=== PATIENT | male | born 1930 | race Caucasian/White ===

== ENCOUNTER 2016-09-26 19:17 | Inpatient (IN) | payer MEDICARE, OTHER ==
[2016-09-26] MEDS ORDERED: LORazepam 2 MG/ML MDV IM ONE (20:27)
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
[2016-09-26] MEDS ORDERED: Sodium Chloride 0.9% 10 ML Syringe FLUSH PRN (21:29)
[2016-09-26] MEDS ORDERED: Temazepam 15 MG Cap PO PRN (21:29)
[2016-09-26] MEDS ORDERED: Acetaminophen 325 MG Tab PO PRN (21:29)
[2016-09-26] MEDS ORDERED: Ondansetron 4 MG Tab.DIS PO PRN (21:29)
[2016-09-26] MEDS ORDERED: Sodium Chloride 0.9% 2.5 ML Syringe FLUSH PRN (21:29)
[2016-09-26] MEDS ORDERED: Bisacodyl 10 MG Supp RECTAL PRN (21:33)
[2016-09-26] MEDS ORDERED: Magnesium Hydroxide 400 MG/5 ML Susp 30 ML Cup PO PRN (21:33)
[2016-09-26] MEDS ORDERED: Acetaminophen 500 MG Tab PO PRN (21:33)
[2016-09-26] MEDS ORDERED: Atropine 1% Ophth Soln 5 ML Bottle SL PRN (21:33)
[2016-09-26] MEDS: LORazepam 2 MG/ML MDV IVPUSH PRN (22:30)
[2016-09-26] MEDS: Polyethylene Glycol 3350 Powder 17 GM Packet PO SCH (23:50)
[2016-09-26] MEDS: risperiDONE 0.5 MG Tab PO SCH (23:51)
[2016-09-26] MEDS: traZODone 50 MG Tab PO SCH (23:51)
[2016-09-26] MEDS: Haloperidol Lactate 5 MG/ML SDV IM PRN (23:57)
[2016-09-27] MEDS ORDERED: Non-Formulary Medication 1 Each (Propylene Glycol/Peg 400 [Systane 0.3-0.4% Eye Drops] 1 D EYELF SCH
[2016-09-27] MEDS: Carboxymethylcellulose Sodium 0.5% Ophth Soln 0.4 ML UD Box of 30 EYELF SCH ×4 (00:02→17:20)
[2016-09-27] MEDS: risperiDONE 0.5 MG Tab PO SCH (05:54)
[2016-09-27] MEDS: traZODone 50 MG Tab PO SCH ×2 (05:54→17:18)
[2016-09-27 06:27] LABS: CHLORIDE,CL 110 mmol/L (98-110); SODIUM,NA 143 mmol/L (136-146)
[2016-09-27] MEDS: Levothyroxine 100 MCG Tab PO SCH (07:15)
[2016-09-27] MEDS: LORazepam 2 MG/ML MDV IVPUSH PRN (08:21)
[2016-09-27] MEDS ORDERED: LANOLIN EYEBOTH SCH (09:00)
[2016-09-27] MEDS ORDERED: PETROLATUM EYEBOTH SCH (09:00)
[2016-09-27] MEDS ORDERED: MIN OIL EYEBOTH SCH (09:00)
[2016-09-27] MEDS ORDERED: TELMISARTAN 20 MG PO SCH (09:00)
[2016-09-27] MEDS: Dorzolamide 2% Ophth Soln 10 ML Bottle EYEBOTH SCH ×2 (11:22→21:41)
[2016-09-27] MEDS: Mineral Oil/Petrolatum Ophth Oint 3.5 GM Tube EYEBOTH SCH ×2 (11:45→21:40)
[2016-09-27] MEDS: Haloperidol Lactate 5 MG/ML SDV IM PRN (12:56)
[2016-09-27] MEDS: Belladonna Alkaloids/Opium 16.2-30 MG Supp RECTAL PRN ×3 (13:32→23:39)
--- NOTE | 2016-09-27 13:38 | PCM.PN ---
- General Info Date of Service: 09/27/16 - Review of Systems Systems Review Comment:: he appears to be sleeping after receiving haldol. He has not eaten yet this am. he was agitated earlier. - Patient Data Vitals - most recent: Last Vital Signs Temp 97.6 F 09/27/16 07:24 Pulse 89 09/27/16 07:24 Resp 20 09/27/16 07:24 BP 116/76 09/27/16 07:24 Pulse Ox 96 09/27/16 07:24 Weight - most recent: 81 kg I&O - last 24 hours: Intake & Output 09/26/16 09/27/16 09/27/16 22:59 06:59 14:59 Intake Total 0 Output Total 1150 Balance -1150 Lab Results last 24 hrs: Laboratory Results - last 24 hr 09/27/16 09/27/16 Range/Units 05:40 05:40 WBC 6.73 (4.0-11.0) K/uL RBC 2.71 L (4.50-5.90) M/uL Hgb 8.6 L (13.0-17.0) g/dL Hct 25.8 L (38.0-50.0) % MCV 95.2 (80.0-98.0) fL MCH 31.7 (27.0-32.0) pg MCHC 33.3 (31.0-37.0) g/dL RDW Std Deviation 45.3 (28.0-62.0) fl RDW Coeff of Rowdy 13 (11.0-15.0) % Plt Count 176 (150-400) K/uL MPV 10.10 (7.40-12.00) fL Neut % (Auto) 83.7 H (48.0-80.0) % Lymph % (Auto) 7.1 L (16.0-40.0) % [place] % (Auto) 6.5 (0.0-15.0) % Eos % (Auto) 2.4 (0.0-7.0) % Baso % (Auto) 0.3 (0.0-1.5) % Neut # 5.6 (1.4-5.7) K/uL Lymph # 0.5 L (0.6-2.4) K/uL [place] # 0.4 (0.0-0.8) K/uL Eos # 0.2 (0.0-0.7) K/uL Baso # 0.0 (0.0-0.1) K/uL Nucleated RBC % 0.0 /100WBC Nucleated RBCs # 0 K/uL Sodium 143 (136-146) mmol/L Potassium 3.9 (3.5-5.1) mmol/L Chloride 110 (98-110) mmol/L Carbon Dioxide 24 (21-31) mmol/L BUN 22 (6.0-23.0) mg/dL Creatinine 1.0 (0.6-1.5) mg/dL Est Cr Clr Drug Dosing 49.45 mL/min Estimated GFR (MDRD) > 60.0 ml/min Glucose 100 (60-110) mg/dL Calcium 8.4 L (8.8-10.8) mg/dL Magnesium 1.8 (1.5-2.3) mEq/L Med Orders - Current: Current Medications Acetaminophen (Tylenol) 650 mg PO Q4H PRN PRN Reason: Pain (Mild 1-3)/fever Artificial Tears (Refresh Plus 0.5%) 0 each EYELF QID [facility] Last Admin: 09/27/16 11:54 Dose: 1 drop Atorvastatin Calcium (Lipitor) 10 mg PO BEDTIME GAIL Atropine Sulfate (Isopto Atropine 1% Ophth Soln) 0 ml SL Q1H PRN PRN Reason: SECRETIONS Belladonna Alkaloids/Opium (B & O Supprettes No. 15a) 1 supp RECTAL Q4H PRN PRN Reason: Spasms Last Admin: 09/27/16 13:32 Dose: 1 supp Bisacodyl (Dulcolax) 10 mg RECTAL Q24H PRN PRN Reason: Constipation Divalproex Sodium (Depakote Sprinkle) 250 mg PO BID GAIL Docusate Sodium (Colace) 100 mg PO BID GAIL Donepezil HCl (Aricept) 5 mg PO BEDTIME GAIL Dorzolamide HCl (Trusopt 2% Ophth Soln) 0 ml EYEBOTH BID [facility] Last Admin: 09/27/16 11:22 Dose: 1 drop Haloperidol Lactate (Haldol) 3 mg IM Q8H PRN PRN Reason: Agitation Last Admin: 09/27/16 12:56 Dose: 3 mg Levetiracetam (Keppra) 500 mg PO BID [facility] Levothyroxine Sodium (Synthroid) 100 mcg PO ACBREAKFAST [facility] Last Admin: 09/27/16 07:15 Dose: Not Given Lorazepam (Ativan) 1 mg IVPUSH Q6H PRN PRN Reason: Anxiety Last Admin: 09/27/16 08:21 Dose: 1 mg Magnesium Hydroxide (Milk Of Magnesia) 30 ml PO DAILY PRN PRN Reason: Constipation Melatonin (Melatonin) 9 mg PO BEDTIME [facility] Mineral Oil/White Petrolatum (Lacri-Lube S.O.P Oint) 0 gm EYEBOTH BID [facility] Last Admin: 09/27/16 11:45 Dose: 1 applic Ondansetron HCl (Zofran Odt) 4 mg PO Q4H PRN PRN Reason: nausea, able to take PO Polyethylene Glycol (Miralax) 17 gm PO Q48H [facility] Last Admin: 09/26/16 23:50 Dose: Not Given Risperidone (Risperidal) 1 mg PO TID [facility] Sodium Chloride (Saline Flush) 10 ml FLUSH ASDIRECTED PRN PRN Reason: Keep Vein Open Sodium Chloride (Saline Flush) 2.5 ml FLUSH ASDIRECTED PRN PRN Reason: Keep Vein Open Telmisartan (Micardis) 20 mg PO BID [facility] Temazepam (Restoril) 15 mg PO BEDTIME PRN PRN Reason: Sleep Trazodone HCl (Trazodone) 50 mg PO TID [facility] Last Admin: 09/27/16 05:54 Dose: Not Given Discontinued Medications Acetaminophen (Tylenol Extra Strength) 1,000 mg PO Q6H PRN PRN Reason: Pain/Fever Lorazepam (Ativan) 1 mg IM ONETIME ONE Stop: 09/26/16 20:28 Last Admin: 09/26/16 20:32 Dose: 1 mg Risperidone (Risperidal) 1 mg PO TID [facility] Last Admin: 09/27/16 05:54 Dose: Not Given - Exam Lungs: Normal respiratory effort Abdomen: no tenderness Physical Findings Comments:: continuous bladder irrigation currently. - Problem List & Annotations (1) Hematuria SNOMED Code(s): 46855996 Code(s): R31.9 - HEMATURIA, UNSPECIFIED Status: Acute Current Visit: Yes (2) Alzheimer's dementia SNOMED Code(s): 76873904 Code(s): G30.9 - ALZHEIMER'S DISEASE, UNSPECIFIED Status: Acute Current Visit: No (3) Fall SNOMED Code(s): 5885495, 452520572 Code(s): W19.XXXA - UNSPECIFIED FALL, INITIAL ENCOUNTER Status: Acute Current Visit: No - Problem List Review Problem List Initiated/Reviewed/Updated: Yes - My Orders Last 24 Hours: My Active Orders 09/26/16 22:17 LORazepam [Ativan] 1 mg IVPUSH Q6H PRN 09/26/16 22:18 Haloperidol Lactate [Haldol] 3 mg IM Q8H PRN 09/27/16 00:00 Carboxymethylcellulose Sodium [Refresh Plus 0.5%] 0 each EYELF QID 09/27/16 08:17 risperiDONE [RisperiDAL] 1 mg PO TID 09/27/16 09:00 Mineral Oil/Petrolatum Oint [Lacri-Lube S.O.P Oint] 0 gm EYEBOTH BID Telmisartan [Micardis] 20 mg PO BID 09/28/16 05:11 BASIC METABOLIC PANEL,BMP [CHEM] AM CBC WITH AUTO DIFF [HEME] AM MAGNESIUM [CHEM] AM 09/29/16 05:11 BASIC METABOLIC PANEL,BMP [CHEM] AM CBC WITH AUTO DIFF [HEME] AM MAGNESIUM [CHEM] AM 09/30/16 05:11 BASIC METABOLIC PANEL,BMP [CHEM] AM CBC WITH AUTO DIFF [HEME] AM MAGNESIUM [CHEM] AM - Plan Plan:: will admit to observation see orders. 09/27/2016 I discussed the case with Dr Hair. We will await stabilization and then contact family. He may need to be on hospice/ comfort measures. MD Deborah
--- NOTE | 2016-09-27 14:26 | PCM.SN ---
- Free Text/Narrative Note: he is at high risk for aspiration. change diet to pureed with nectar liquids; aspiration precautions. Anil Ortega MD
[2016-09-27] MEDS: risperiDONE 1 MG Tab PO SCH ×2 (17:17→17:18)
[2016-09-27] MEDS: Docusate Sodium 100 MG Cap PO SCH (17:18)
[2016-09-27] MEDS: levETIRAcetam 500 MG Tab PO SCH (17:18)
[2016-09-27] MEDS: Divalproex Sodium Delayed-Release 125 MG Cap.Sprink PO SCH (17:18)
[2016-09-27] MEDS: Sodium Chloride 0.9% 1,000 ML IV SCH (19:28)
[2016-09-27] MEDS ORDERED: Sodium Chloride 0.9% 1,000 ML IV SCH (19:30)
[2016-09-28] MEDS: Carboxymethylcellulose Sodium 0.5% Ophth Soln 0.4 ML UD Box of 30 EYELF SCH ×4 (00:39→18:52)
[2016-09-28] MEDS ORDERED: Sodium Chloride 0.9% 1,000 ML IV ONE (01:05)
[2016-09-28] MEDS: Melatonin 3 MG Tab PO SCH ×2 (01:38→21:22)
[2016-09-28] MEDS: levETIRAcetam 500 MG Tab PO SCH ×4 (01:38→21:19)
[2016-09-28] MEDS: atorvaSTATin 10 MG Tab PO SCH ×2 (01:38→21:27)
[2016-09-28] MEDS: Docusate Sodium 100 MG Cap PO SCH ×4 (01:38→21:27)
[2016-09-28] MEDS: Donepezil 5 MG Tab PO SCH ×2 (01:38→21:27)
[2016-09-28] MEDS: Divalproex Sodium Delayed-Release 125 MG Cap.Sprink PO SCH ×4 (01:38→21:22)
[2016-09-28] MEDS: risperiDONE 1 MG Tab PO SCH ×5 (01:39→21:27)
[2016-09-28] MEDS: traZODone 50 MG Tab PO SCH ×5 (01:39→21:19)
[2016-09-28] MEDS: Sodium Chloride 0.9% 1,000 ML IV SCH ×2 (07:00→17:07)
[2016-09-28] MEDS: Levothyroxine 100 MCG Tab PO SCH ×2 (07:04→07:40)
[2016-09-28 07:12] LABS: CHLORIDE,CL 112 mmol/L (98-110); SODIUM,NA 144 mmol/L (136-146)
[2016-09-28] MEDS: LORazepam 2 MG/ML MDV IVPUSH PRN ×2 (07:17→17:05)
[2016-09-28] MEDS: Dorzolamide 2% Ophth Soln 10 ML Bottle EYEBOTH SCH ×2 (08:25→21:14)
[2016-09-28] MEDS: Mineral Oil/Petrolatum Ophth Oint 3.5 GM Tube EYEBOTH SCH ×2 (09:00→21:36)
--- NOTE | 2016-09-28 12:31 | PCM.PN ---
- General Info Date of Service: 09/28/16 - Review of Systems Psychiatric: Reports: confusion (he had a hypotensive episode early this am with systolic blood pressure of 60 mm Hg. Hypotension responded to intravenous crystalloid infusion. ) - Patient Data Vitals - most recent: Last Vital Signs Temp 97.3 F 09/28/16 12:00 Pulse 94 09/28/16 12:00 Resp 18 09/28/16 12:00 BP 110/63 09/28/16 12:00 Pulse Ox 96 09/28/16 08:00 Weight - most recent: 81 kg I&O - last 24 hours: Intake & Output 09/27/16 09/28/16 09/28/16 22:59 06:59 14:59 Intake Total 77438 1702 Output Total 31554 240 Balance -114 1462 Lab Results last 24 hrs: Laboratory Results - last 24 hr 09/28/16 09/28/16 Range/Units 06:00 06:00 WBC 5.58 (4.0-11.0) K/uL RBC 2.61 L (4.50-5.90) M/uL Hgb 8.5 L (13.0-17.0) g/dL Hct 26.4 L (38.0-50.0) % MCV 101.1 H (80.0-98.0) fL MCH 32.6 H (27.0-32.0) pg MCHC 32.2 (31.0-37.0) g/dL RDW Std Deviation 45.4 (28.0-62.0) fl RDW Coeff of Rowdy 13 (11.0-15.0) % Plt Count 198 (150-400) K/uL MPV 10.80 (7.40-12.00) fL Neut % (Auto) 67.4 (48.0-80.0) % Lymph % (Auto) 18.1 (16.0-40.0) % [place] % (Auto) 9.3 (0.0-15.0) % Eos % (Auto) 4.7 (0.0-7.0) % Baso % (Auto) 0.5 (0.0-1.5) % Neut # 3.8 (1.4-5.7) K/uL Lymph # 1.0 (0.6-2.4) K/uL [place] # 0.5 (0.0-0.8) K/uL Eos # 0.3 (0.0-0.7) K/uL Baso # 0.0 (0.0-0.1) K/uL Sodium 144 (136-146) mmol/L Potassium 4.0 (3.5-5.1) mmol/L Chloride 112 H (98-110) mmol/L Carbon Dioxide 23 (21-31) mmol/L BUN 21 (6.0-23.0) mg/dL Creatinine 0.9 (0.6-1.5) mg/dL Est Cr Clr Drug Dosing 54.95 mL/min Estimated GFR (MDRD) > 60.0 ml/min Glucose 75 (60-110) mg/dL Calcium 8.2 L (8.8-10.8) mg/dL Magnesium 1.5 (1.5-2.3) mEq/L Med Orders - Current: Current Medications Acetaminophen (Tylenol) 650 mg PO Q4H PRN PRN Reason: Pain (Mild 1-3)/fever Artificial Tears (Refresh Plus 0.5%) 0 each EYELF QID [facility] Last Admin: 09/28/16 11:47 Dose: 1 drop Atorvastatin Calcium (Lipitor) 10 mg PO BEDTIME [facility] Last Admin: 09/28/16 01:38 Dose: Not Given Atropine Sulfate (Isopto Atropine 1% Ophth Soln) 0 ml SL Q1H PRN PRN Reason: SECRETIONS Belladonna Alkaloids/Opium (B & O Supprettes No. 15a) 1 supp RECTAL Q4H PRN PRN Reason: Spasms Last Admin: 09/27/16 23:39 Dose: 1 supp Bisacodyl (Dulcolax) 10 mg RECTAL Q24H PRN PRN Reason: Constipation Divalproex Sodium (Depakote Sprinkle) 250 mg PO BID [facility] Last Admin: 09/28/16 08:21 Dose: 250 mg Docusate Sodium (Colace) 100 mg PO BID [facility] Last Admin: 09/28/16 08:21 Dose: 100 mg Donepezil HCl (Aricept) 5 mg PO BEDTIME [facility] Last Admin: 09/28/16 01:38 Dose: Not Given Dorzolamide HCl (Trusopt 2% Ophth Soln) 0 ml EYEBOTH BID [facility] Last Admin: 09/28/16 08:25 Dose: 1 drop Haloperidol Lactate (Haldol) 3 mg IM Q8H PRN PRN Reason: Agitation Last Admin: 09/27/16 12:56 Dose: 3 mg Sodium Chloride (Normal Saline) 1,000 mls @ 100 mls/hr IV ASDIRECTED [facility] Last Admin: 09/28/16 07:00 Dose: 100 mls/hr Meropenem 1 gm/ Sodium (Chloride) 100 mls @ 200 mls/hr IV Q8H [facility] Levetiracetam (Keppra) 500 mg PO BID [facility] Last Admin: 09/28/16 08:20 Dose: 500 mg Levothyroxine Sodium (Synthroid) 100 mcg PO ACBREAKFAST [facility] Last Admin: 09/28/16 07:40 Dose: Not Given Lorazepam (Ativan) 1 mg IVPUSH Q6H PRN PRN Reason: Anxiety Last Admin: 09/28/16 07:17 Dose: 1 mg Magnesium Hydroxide (Milk Of Magnesia) 30 ml PO DAILY PRN PRN Reason: Constipation Melatonin (Melatonin) 9 mg PO BEDTIME [facility] Last Admin: 09/28/16 01:38 Dose: Not Given Mineral Oil/White Petrolatum (Lacri-Lube S.O.P Oint) 0 gm EYEBOTH BID [facility] Last Admin: 09/28/16 09:00 Dose: 1 applic Ondansetron HCl (Zofran Odt) 4 mg PO Q4H PRN PRN Reason: nausea, able to take PO Polyethylene Glycol (Miralax) 17 gm PO Q48H [facility] Last Admin: 09/26/16 23:50 Dose: Not Given Risperidone (Risperidal) 1 mg PO TID [facility] Last Admin: 09/28/16 07:05 Dose: 1 mg Sodium Chloride (Saline Flush) 10 ml FLUSH ASDIRECTED PRN PRN Reason: Keep Vein Open Sodium Chloride (Saline Flush) 2.5 ml FLUSH ASDIRECTED PRN PRN Reason: Keep Vein Open Temazepam (Restoril) 15 mg PO BEDTIME PRN PRN Reason: Sleep Trazodone HCl (Trazodone) 50 mg PO TID [facility] Last Admin: 09/28/16 05:18 Dose: Not Given Discontinued Medications Acetaminophen (Tylenol Extra Strength) 1,000 mg PO Q6H PRN PRN Reason: Pain/Fever Sodium Chloride (Normal Saline) 1,000 mls @ 100 mls/hr IV ASDIRECTED [facility] Sodium Chloride (Normal Saline) 1,000 mls @ 999 mls/hr IV .Bolus ONE Stop: 09/28/16 02:05 Last Admin: 09/28/16 01:12 Dose: 999 mls/hr Lorazepam (Ativan) 1 mg IM ONETIME ONE Stop: 09/26/16 20:28 Last Admin: 09/26/16 20:32 Dose: 1 mg Risperidone (Risperidal) 1 mg PO TID [facility] Last Admin: 09/27/16 05:54 Dose: Not Given Telmisartan (Micardis) 20 mg PO BID [facility] Last Admin: 09/28/16 11:59 Dose: Not Given - Exam Physical Findings Comments:: patient in position abdomen non tender lungs CTA - Problem List & Annotations (1) Hematuria SNOMED Code(s): 08483723 Code(s): R31.9 - HEMATURIA, UNSPECIFIED Status: Acute Current Visit: Yes (2) Alzheimer's dementia SNOMED Code(s): 98319183 Code(s): G30.9 - ALZHEIMER'S DISEASE, UNSPECIFIED Status: Acute Current Visit: No (3) Fall SNOMED Code(s): 5308026, 529879217 Code(s): W19.XXXA - UNSPECIFIED FALL, INITIAL ENCOUNTER Status: Acute Current Visit: No (4) UTI (urinary tract infection) SNOMED Code(s): 30224057 Code(s): N39.0 - URINARY TRACT INFECTION, SITE NOT SPECIFIED Status: Acute Current Visit: No Qualifiers: Urinary tract infection type: site unspecified Hematuria presence: without hematuria Qualified Code(s): N39.0 - Urinary tract infection, site not specified - Problem List Review Problem List Initiated/Reviewed/Updated: Yes - My Orders Last 24 Hours: My Active Orders 09/27/16 14:25 Aspiration Precautions [OM.PC] Routine 09/27/16 19:00 Sodium Chloride 0.9% [Normal Saline] 1,000 ml IV ASDIRECTED 09/27/16 Dinner Pureed Diet [DIET] 09/28/16 12:30 Meropenem [Merrem] 1 gm Sodium Chloride 0.9% [Normal Saline] 100 ml IV Q8H 09/29/16 05:11 BASIC METABOLIC PANEL,BMP [CHEM] AM CBC WITH AUTO DIFF [HEME] AM MAGNESIUM [CHEM] AM 09/30/16 05:11 BASIC METABOLIC PANEL,BMP [CHEM] AM CBC WITH AUTO DIFF [HEME] AM MAGNESIUM [CHEM] AM - Plan Plan:: will admit to observation see orders. 09/27/2016 I discussed the case with Dr Hair. We will await stabilization and then contact family. He may need to be on hospice/ comfort measures. 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
[2016-09-28] MEDS: Meropenem 1 GM in Sodium Chloride 0.9% 100 ML IV SCH ×2 (13:24→22:05)
[2016-09-28] MEDS: Haloperidol Lactate 5 MG/ML SDV IM PRN (18:42)
[2016-09-28] MEDS: Belladonna Alkaloids/Opium 16.2-30 MG Supp RECTAL PRN (18:46)
[2016-09-28] MEDS: Polyethylene Glycol 3350 Powder 17 GM Packet PO SCH (23:30)
[2016-09-29] MEDS: Carboxymethylcellulose Sodium 0.5% Ophth Soln 0.4 ML UD Box of 30 EYELF SCH ×4 (00:24→18:02)
[2016-09-29] MEDS: Sodium Chloride 0.9% 1,000 ML IV SCH ×2 (03:32→15:36)
[2016-09-29] MEDS: Meropenem 1 GM in Sodium Chloride 0.9% 100 ML IV SCH ×3 (05:19→21:22)
[2016-09-29] MEDS: traZODone 50 MG Tab PO SCH ×3 (06:17→21:25)
[2016-09-29] MEDS: Levothyroxine 100 MCG Tab PO SCH ×2 (06:17→06:57)
[2016-09-29] MEDS: risperiDONE 1 MG Tab PO SCH ×3 (06:19→21:25)
[2016-09-29 06:34] LABS: CHLORIDE,CL 114 mmol/L (98-110); SODIUM,NA 146 mmol/L (136-146)
[2016-09-29] MEDS: Docusate Sodium 100 MG Cap PO SCH ×2 (08:13→21:31)
[2016-09-29] MEDS: levETIRAcetam 500 MG Tab PO SCH ×2 (08:13→21:25)
[2016-09-29] MEDS: Divalproex Sodium Delayed-Release 125 MG Cap.Sprink PO SCH ×2 (08:13→21:24)
[2016-09-29] MEDS: Mineral Oil/Petrolatum Ophth Oint 3.5 GM Tube EYEBOTH SCH ×2 (08:17→21:52)
[2016-09-29] MEDS: Dorzolamide 2% Ophth Soln 10 ML Bottle EYEBOTH SCH ×2 (08:17→21:32)
[2016-09-29] MEDS ORDERED: Magnesium Sulfate/Water 2 GM in Premix Bag 1 BAG IV ONE (08:36)
--- NOTE | 2016-09-29 10:56 | PCM.PN ---
- General Info Date of Service: 09/29/16 Functional Status: Reports: tolerating diet, urinating - Review of Systems General: Reports: no symptoms HEENT: Reports: no symptoms Pulmonary: Reports: no symptoms Cardiovascular: Reports: no symptoms Gastrointestinal: Reports: No symptoms Genitourinary: Reports: no symptoms Musculoskeletal: Reports: no symptoms Skin: Reports: no symptoms Neurological: Reports: no symptoms Psychiatric: Reports: no symptoms - Patient Data Vitals - most recent: Last Vital Signs Temp 97.2 F 09/29/16 07:25 Pulse 99 09/29/16 07:25 Resp 20 09/29/16 07:25 BP 154/86 H 09/29/16 07:25 Pulse Ox 97 09/29/16 07:25 Weight - most recent: 81 kg I&O - last 24 hours: Intake & Output 09/28/16 09/29/16 09/29/16 22:59 06:59 14:59 Intake Total 1686 1276 Output Total 1720 Balance 1686 -444 Lab Results last 24 hrs: Laboratory Results - last 24 hr 09/29/16 09/29/16 Range/Units 05:20 05:20 WBC 6.52 (4.0-11.0) K/uL RBC 2.53 L (4.50-5.90) M/uL Hgb 8.2 L (13.0-17.0) g/dL Hct 25.3 L (38.0-50.0) % MCV 100.0 H (80.0-98.0) fL MCH 32.4 H (27.0-32.0) pg MCHC 32.4 (31.0-37.0) g/dL RDW Std Deviation 44.9 (28.0-62.0) fl RDW Coeff of Rowdy 13 (11.0-15.0) % Plt Count 226 (150-400) K/uL MPV 10.20 (7.40-12.00) fL Neut % (Auto) 58.6 (48.0-80.0) % Lymph % (Auto) 25.5 (16.0-40.0) % [place] % (Auto) 10.0 (0.0-15.0) % Eos % (Auto) 5.4 (0.0-7.0) % Baso % (Auto) 0.5 (0.0-1.5) % Neut # 3.8 (1.4-5.7) K/uL Lymph # 1.7 (0.6-2.4) K/uL [place] # 0.7 (0.0-0.8) K/uL Eos # 0.4 (0.0-0.7) K/uL Baso # 0.0 (0.0-0.1) K/uL Sodium 146 (136-146) mmol/L Potassium 4.0 (3.5-5.1) mmol/L Chloride 114 H (98-110) mmol/L Carbon Dioxide 24 (21-31) mmol/L BUN 14 (6.0-23.0) mg/dL Creatinine 0.8 (0.6-1.5) mg/dL Est Cr Clr Drug Dosing 61.82 mL/min Estimated GFR (MDRD) > 60.0 ml/min Glucose 94 (60-110) mg/dL Calcium 8.4 L (8.8-10.8) mg/dL Magnesium 1.3 L (1.5-2.3) mEq/L Med Orders - Current: Current Medications Acetaminophen (Tylenol) 650 mg PO Q4H PRN PRN Reason: Pain (Mild 1-3)/fever Artificial Tears (Refresh Plus 0.5%) 0 each EYELF QID [facility] Last Admin: 09/29/16 06:17 Dose: 1 drop Atorvastatin Calcium (Lipitor) 10 mg PO BEDTIME [facility] Last Admin: 09/28/16 21:27 Dose: 10 mg Atropine Sulfate (Isopto Atropine 1% Oph Soln) 0 ml SL Q1H PRN PRN Reason: SECRETIONS Belladonna Alkaloids/Opium (B & O Supprettes No. 15a) 1 supp RECTAL Q4H PRN PRN Reason: Spasms Last Admin: 09/28/16 18:46 Dose: 1 supp Bisacodyl (Dulcolax) 10 mg RECTAL Q24H PRN PRN Reason: Constipation Divalproex Sodium (Depakote Sprinkle) 250 mg PO BID [facility] Last Admin: 09/29/16 08:13 Dose: 250 mg Docusate Sodium (Colace) 100 mg PO BID [facility] Last Admin: 09/29/16 08:13 Dose: 100 mg Donepezil HCl (Aricept) 5 mg PO BEDTIME [facility] Last Admin: 09/28/16 21:27 Dose: 5 mg Dorzolamide HCl (Trusopt 2% Ophth Soln) 0 ml EYEBOTH BID [facility] Last Admin: 09/29/16 08:17 Dose: 1 drop Haloperidol Lactate (Haldol) 3 mg IM Q8H PRN PRN Reason: Agitation Last Admin: 09/28/16 18:42 Dose: 3 mg Sodium Chloride (Normal Saline) 1,000 mls @ 100 mls/hr IV ASDIRECTED [facility] Last Admin: 09/29/16 03:32 Dose: 100 mls/hr Meropenem 1 gm/ Sodium (Chloride) 100 mls @ 200 mls/hr IV Q8H [facility] Last Admin: 09/29/16 05:19 Dose: 200 mls/hr Levetiracetam (Keppra) 500 mg PO BID [facility] Last Admin: 09/29/16 08:13 Dose: 500 mg Levothyroxine Sodium (Synthroid) 100 mcg PO ACBREAKFAST [facility] Last Admin: 09/29/16 06:57 Dose: Not Given Lorazepam (Ativan) 1 mg IVPUSH Q6H PRN PRN Reason: Anxiety Last Admin: 09/28/16 17:05 Dose: 1 mg Magnesium Hydroxide (Milk Of Magnesia) 30 ml PO DAILY PRN PRN Reason: Constipation Melatonin (Melatonin) 9 mg PO BEDTIME [facility] Last Admin: 09/28/16 21:22 Dose: 9 mg Mineral Oil/White Petrolatum (Lacri-Lube S.O.P Oint) 0 gm EYEBOTH BID [facility] Last Admin: 09/29/16 08:17 Dose: 1 applic Ondansetron HCl (Zofran Odt) 4 mg PO Q4H PRN PRN Reason: nausea, able to take PO Polyethylene Glycol (Miralax) 17 gm PO Q48H [facility] Last Admin: 09/28/16 23:30 Dose: Not Given Risperidone (Risperidal) 1 mg PO TID [facility] Last Admin: 09/29/16 06:19 Dose: 1 mg Sodium Chloride (Saline Flush) 10 ml FLUSH ASDIRECTED PRN PRN Reason: Keep Vein Open Sodium Chloride (Saline Flush) 2.5 ml FLUSH ASDIRECTED PRN PRN Reason: Keep Vein Open Temazepam (Restoril) 15 mg PO BEDTIME PRN PRN Reason: Sleep Trazodone HCl (Trazodone) 50 mg PO TID [facility] Last Admin: 09/29/16 06:17 Dose: 50 mg Discontinued Medications Acetaminophen (Tylenol Extra Strength) 1,000 mg PO Q6H PRN PRN Reason: Pain/Fever Sodium Chloride (Normal Saline) 1,000 mls @ 100 mls/hr IV ASDIRECTED [facility] Sodium Chloride (Normal Saline) 1,000 mls @ 999 mls/hr IV .Bolus ONE Stop: 09/28/16 02:05 Last Admin: 09/28/16 01:12 Dose: 999 mls/hr Magnesium Sulfate 2 gm/ Premix 50 mls @ 25 mls/hr IV ONETIME ONE Stop: 09/29/16 10:35 Last Admin: 09/29/16 08:54 Dose: 25 mls/hr Lorazepam (Ativan) 1 mg IM ONETIME ONE Stop: 09/26/16 20:28 Last Admin: 09/26/16 20:32 Dose: 1 mg Risperidone (Risperidal) 1 mg PO TID [facility] Last Admin: 09/27/16 05:54 Dose: Not Given Telmisartan (Micardis) 20 mg PO BID [facility] Last Admin: 09/28/16 11:59 Dose: Not Given - Exam General: alert, oriented HEENT: Pupils equal, EOMI Neck: supple Lungs: Clear to auscultation Cardiovascular: regular rate, regular rhythm Abdomen: bowel sounds present, soft Extremities: no edema Skin: warm, dry Neurological: no new focal deficit Psy/Mental Status: alert, normal affect - Problem List Review Problem List Initiated/Reviewed/Updated: Yes - Plan Plan:: 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 will attempt to discuss with family going to possible comfort measures
--- NOTE | 2016-09-29 11:30 | PCM.SN ---
- Free Text/Narrative Note: I spoke with his daughter Fior Erickson ) I advised regarding multidrug resistent e coli. . He is on meropenum. CBI now with clear urine out plan is for meropenum until Thursday with discharge to [place] then if no active urinary tract bleeding Fior stated that she will discuss further wishes with other family members. Anil Ortega MD
[2016-09-29] MEDS: LORazepam 2 MG/ML MDV IVPUSH PRN (14:26)
[2016-09-29] MEDS: atorvaSTATin 10 MG Tab PO SCH (21:24)
[2016-09-29] MEDS: Donepezil 5 MG Tab PO SCH (21:24)
[2016-09-29] MEDS: Melatonin 3 MG Tab PO SCH (21:25)
[2016-09-30] MEDS: LORazepam 2 MG/ML MDV IVPUSH PRN (00:23)
[2016-09-30] MEDS: Carboxymethylcellulose Sodium 0.5% Ophth Soln 0.4 ML UD Box of 30 EYELF SCH ×4 (00:24→18:06)
[2016-09-30] MEDS: Haloperidol Lactate 5 MG/ML SDV IM PRN (02:10)
[2016-09-30] MEDS: Sodium Chloride 0.9% 1,000 ML IV SCH ×2 (02:19→15:25)
[2016-09-30] MEDS: Meropenem 1 GM in Sodium Chloride 0.9% 100 ML IV SCH ×3 (05:07→21:47)
[2016-09-30 06:06] LABS: CHLORIDE,CL 114 mmol/L (98-110); SODIUM,NA 144 mmol/L (136-146)
[2016-09-30] MEDS: Levothyroxine 100 MCG Tab PO SCH (09:15)
[2016-09-30] MEDS: risperiDONE 1 MG Tab PO SCH ×3 (09:15→21:46)
[2016-09-30] MEDS: traZODone 50 MG Tab PO SCH ×3 (09:16→21:46)
[2016-09-30] MEDS: levETIRAcetam 500 MG Tab PO SCH ×2 (09:17→21:47)
[2016-09-30] MEDS: Docusate Sodium 100 MG Cap PO SCH ×2 (09:17→21:46)
[2016-09-30] MEDS: Divalproex Sodium Delayed-Release 125 MG Cap.Sprink PO SCH ×2 (09:17→21:46)
[2016-09-30] MEDS: Mineral Oil/Petrolatum Ophth Oint 3.5 GM Tube EYEBOTH SCH ×2 (09:18→21:49)
[2016-09-30] MEDS: Dorzolamide 2% Ophth Soln 10 ML Bottle EYEBOTH SCH ×2 (09:18→21:49)
[2016-09-30] MEDS ORDERED: Magnesium Sulfate/Water 2 GM in Premix Bag 1 BAG IV ONE (09:37)
--- NOTE | 2016-09-30 10:00 | PCM.PN ---
<Sharmaine Kramer - Last Filed: 09/30/16 10:30> - General Info Date of Service: 09/30/16 Subjective Update: pulled out his CBI. - Review of Systems General: Reports: no symptoms HEENT: Reports: no symptoms Pulmonary: Reports: no symptoms Cardiovascular: Reports: no symptoms Gastrointestinal: Reports: No symptoms Genitourinary: Reports: no symptoms Musculoskeletal: Reports: no symptoms Skin: Reports: no symptoms Neurological: Reports: no symptoms Psychiatric: Reports: no symptoms - Patient Data Vitals - most recent: Last Vital Signs Temp 98.5 F 09/30/16 07:41 Pulse 86 09/30/16 07:41 Resp 18 09/30/16 07:41 BP 165/82 H 09/30/16 07:41 Pulse Ox 95 09/30/16 07:41 Weight - most recent: 178 lb 9.191 oz I&O - last 24 hours: Intake & Output 09/29/16 09/30/16 09/30/16 22:59 06:59 14:59 Intake Total 1416 1000 Output Total 550 Balance 866 1000 Lab Results last 24 hrs: Laboratory Results - last 24 hr 09/30/16 09/30/16 Range/Units 05:23 05:23 WBC 6.52 (4.0-11.0) K/uL RBC 2.60 L (4.50-5.90) M/uL Hgb 8.1 L (13.0-17.0) g/dL Hct 24.9 L (38.0-50.0) % MCV 95.8 (80.0-98.0) fL MCH 31.2 (27.0-32.0) pg MCHC 32.5 (31.0-37.0) g/dL RDW Std Deviation 46.5 (28.0-62.0) fl RDW Coeff of Rowdy 13 (11.0-15.0) % Plt Count 196 (150-400) K/uL MPV 9.50 (7.40-12.00) fL Neut % (Auto) 70.3 (48.0-80.0) % Lymph % (Auto) 11.3 L (16.0-40.0) % [place] % (Auto) 12.1 (0.0-15.0) % Eos % (Auto) 6.0 (0.0-7.0) % Baso % (Auto) 0.3 (0.0-1.5) % Neut # 4.6 (1.4-5.7) K/uL Lymph # 0.7 (0.6-2.4) K/uL [place] # 0.8 (0.0-0.8) K/uL Eos # 0.4 (0.0-0.7) K/uL Baso # 0.0 (0.0-0.1) K/uL Nucleated RBC % 0.0 /100WBC Nucleated RBCs # 0 K/uL Sodium 144 (136-146) mmol/L Potassium 3.6 (3.5-5.1) mmol/L Chloride 114 H (98-110) mmol/L Carbon Dioxide 22 (21-31) mmol/L BUN 9 (6.0-23.0) mg/dL Creatinine 0.8 (0.6-1.5) mg/dL Est Cr Clr Drug Dosing 61.82 mL/min Estimated GFR (MDRD) > 60.0 ml/min Glucose 118 H (60-110) mg/dL Calcium 8.0 L (8.8-10.8) mg/dL Magnesium 1.4 L (1.5-2.3) mEq/L Med Orders - Current: Current Medications Acetaminophen (Tylenol) 650 mg PO Q4H PRN PRN Reason: Pain (Mild 1-3)/fever Artificial Tears (Refresh Plus 0.5%) 0 each [facility]F QID [facility] Last Admin: 09/30/16 09:15 Dose: 1 drop Atorvastatin Calcium (Lipitor) 10 mg PO BEDTIME [facility] Last Admin: 09/29/16 21:24 Dose: 10 mg Atropine Sulfate (Isopto Atropine 1% Oph Soln) 0 ml SL Q1H PRN PRN Reason: SECRETIONS Belladonna Alkaloids/Opium (B & O Supprettes No. 15a) 1 supp RECTAL Q4H PRN PRN Reason: Spasms Last Admin: 09/28/16 18:46 Dose: 1 supp Bisacodyl (Dulcolax) 10 mg RECTAL Q24H PRN PRN Reason: Constipation Divalproex Sodium (Depakote Sprinkle) 250 mg PO BID [facility] Last Admin: 09/30/16 09:17 Dose: 250 mg Docusate Sodium (Colace) 100 mg PO BID [facility] Last Admin: 09/30/16 09:17 Dose: 100 mg Donepezil HCl (Aricept) 5 mg PO BEDTIME [facility] Last Admin: 09/29/16 21:24 Dose: 5 mg Dorzolamide HCl (Trusopt 2% Ophth Soln) 0 ml EYEBOTH BID [facility] Last Admin: 09/30/16 09:18 Dose: 1 drop Haloperidol Lactate (Haldol) 3 mg IM Q8H PRN PRN Reason: Agitation Last Admin: 09/30/16 02:10 Dose: 3 mg Sodium Chloride (Normal Saline) 1,000 mls @ 100 mls/hr IV ASDIRECTED [facility] Last Admin: 09/30/16 02:19 Dose: 100 mls/hr Meropenem 1 gm/ Sodium (Chloride) 100 mls @ 200 mls/hr IV Q8H [facility] Last Admin: 09/30/16 05:07 Dose: 200 mls/hr Magnesium Sulfate 2 gm/ Premix 50 mls @ 25 mls/hr IV ONETIME ONE Stop: 09/30/16 11:36 Levetiracetam (Keppra) 500 mg PO BID [facility] Last Admin: 09/30/16 09:17 Dose: 500 mg Levothyroxine Sodium (Synthroid) 100 mcg PO ACBREAKFAST [facility] Last Admin: 09/30/16 09:15 Dose: 100 mcg Lorazepam (Ativan) 1 mg IVPUSH Q6H PRN PRN Reason: Anxiety Last Admin: 09/30/16 00:23 Dose: 1 mg Magnesium Hydroxide (Milk Of Magnesia) 30 ml PO DAILY PRN PRN Reason: Constipation Melatonin (Melatonin) 9 mg PO BEDTIME [facility] Last Admin: 09/29/16 21:25 Dose: 9 mg Mineral Oil/White Petrolatum (Lacri-Lube S.O.P Oint) 0 gm EYEBOTH BID [facility] Last Admin: 09/30/16 09:18 Dose: 1 applic Ondansetron HCl (Zofran Odt) 4 mg PO Q4H PRN PRN Reason: nausea, able to take PO Polyethylene Glycol (Miralax) 17 gm PO Q48H [facility] Last Admin: 09/28/16 23:30 Dose: Not Given Risperidone (Risperidal) 1 mg PO TID [facility] Last Admin: 09/30/16 09:15 Dose: 1 mg Sodium Chloride (Saline Flush) 10 ml FLUSH ASDIRECTED PRN PRN Reason: Keep Vein Open Sodium Chloride (Saline Flush) 2.5 ml FLUSH ASDIRECTED PRN PRN Reason: Keep Vein Open Temazepam (Restoril) 15 mg PO BEDTIME PRN PRN Reason: Sleep Trazodone HCl (Trazodone) 50 mg PO TID [facility] Last Admin: 09/30/16 09:16 Dose: 50 mg Discontinued Medications Acetaminophen (Tylenol Extra Strength) 1,000 mg PO Q6H PRN PRN Reason: Pain/Fever Sodium Chloride (Normal Saline) 1,000 mls @ 100 mls/hr IV ASDIRECTED [facility] Sodium Chloride (Normal Saline) 1,000 mls @ 999 mls/hr IV .Bolus ONE Stop: 09/28/16 02:05 Last Admin: 09/28/16 01:12 Dose: 999 mls/hr Magnesium Sulfate 2 gm/ Premix 50 mls @ 25 mls/hr IV ONETIME ONE Stop: 09/29/16 10:35 Last Admin: 09/29/16 08:54 Dose: 25 mls/hr Lorazepam (Ativan) 1 mg IM ONETIME ONE Stop: 09/26/16 20:28 Last Admin: 09/26/16 20:32 Dose: 1 mg Risperidone (Risperidal) 1 mg PO TID [facility] Last Admin: 09/27/16 05:54 Dose: Not Given Telmisartan (Micardis) 20 mg PO BID [facility] Last Admin: 09/28/16 11:59 Dose: Not Given - Exam General: alert HEENT: EOMI Neck: supple Lungs: Normal respiratory effort, Wheezing Cardiovascular: regular rate Abdomen: bowel sounds present, soft Back Exam: normal inspection Extremities: no edema Skin: warm, dry, intact Neurological: no new focal deficit Psy/Mental Status: alert, normal affect, normal mood - Problem List Review Problem List Initiated/Reviewed/Updated: Yes - My Orders Last 24 Hours: My Active Orders 09/30/16 09:37 Magnesium Sulfate/Water [Magnesium Sulfate 2 GM in Water 50 ML] 2 gm Premix Bag 1 bag IV ONETIME - Plan Plan:: 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 family will discuss the comfort measure status. [facility] th[facility]. <Yady Skelton - Last Filed: 09/30/16 16:08> - Patient Data Vitals - most recent: Last Vital Signs Temp 97.6 F 09/30/16 15:54 Pulse 81 09/30/16 15:54 Resp 20 09/30/16 15:54 BP 120/75 09/30/16 15:54 Pulse Ox 93 L 09/30/16 15:54 I&O - last 24 hours: Intake & Output 09/30/16 09/30/16 09/30/16 06:59 14:59 22:59 Intake Total 1000 150 Balance 1000 150 Lab Results last 24 hrs: Laboratory Results - last 24 hr 09/30/16 09/30/16 Range/Units 05:23 05:23 WBC 6.52 (4.0-11.0) K/uL RBC 2.60 L (4.50-5.90) M/uL Hgb 8.1 L (13.0-17.0) g/dL Hct 24.9 L (38.0-50.0) % MCV 95.8 (80.0-98.0) fL MCH 31.2 (27.0-32.0) pg MCHC 32.5 (31.0-37.0) g/dL RDW Std Deviation 46.5 (28.0-62.0) fl RDW Coeff of Rowdy 13 (11.0-15.0) % Plt Count 196 (150-400) K/uL MPV 9.50 (7.40-12.00) fL Neut % (Auto) 70.3 (48.0-80.0) % Lymph % (Auto) 11.3 L (16.0-40.0) % [place] % (Auto) 12.1 (0.0-15.0) % Eos % (Auto) 6.0 (0.0-7.0) % Baso % (Auto) 0.3 (0.0-1.5) % Neut # 4.6 (1.4-5.7) K/uL Lymph # 0.7 (0.6-2.4) K/uL [place] # 0.8 (0.0-0.8) K/uL Eos # 0.4 (0.0-0.7) K/uL Baso # 0.0 (0.0-0.1) K/uL Nucleated RBC % 0.0 /100WBC Nucleated RBCs # 0 K/uL Sodium 144 (136-146) mmol/L Potassium 3.6 (3.5-5.1) mmol/L Chloride 114 H (98-110) mmol/L Carbon Dioxide 22 (21-31) mmol/L BUN 9 (6.0-23.0) mg/dL Creatinine 0.8 (0.6-1.5) mg/dL Est Cr Clr Drug Dosing 61.82 mL/min Estimated GFR (MDRD) > 60.0 ml/min Glucose 118 H (60-110) mg/dL Calcium 8.0 L (8.8-10.8) mg/dL Magnesium 1.4 L (1.5-2.3) mEq/L Med Orders - Current: Current Medications Acetaminophen (Tylenol) 650 mg PO Q4H PRN PRN Reason: Pain (Mild 1-3)/fever Albuterol/Ipratropium (Duoneb 3.0-0.5 Mg/3 Ml) 3 ml NEB Q4HRRT PRN PRN Reason: Shortness of Breath Last Admin: 09/30/16 11:21 Dose: 3 ml Artificial Tears (Refresh Plus 0.5%) 0 each [facility] QID [facility] Last Admin: 09/30/16 11:45 Dose: 1 drop Atorvastatin Calcium (Lipitor) 10 mg PO BEDTIME [facility] Last Admin: 09/29/16 21:24 Dose: 10 mg Atropine Sulfate (Isopto Atropine 1% [facility]) 0 ml SL Q1H PRN PRN Reason: SECRETIONS Belladonna Alkaloids/Opium (B & O Supprettes No. 15a) 1 supp RECTAL Q4H PRN PRN Reason: Spasms Last Admin: 09/28/16 18:46 Dose: 1 supp Bisacodyl (Dulcolax) 10 mg RECTAL Q24H PRN PRN Reason: Constipation Divalproex Sodium (Depakote Sprinkle) 250 mg PO BID [facility] Last Admin: 09/30/16 09:17 Dose: 250 mg Docusate Sodium (Colace) 100 mg PO BID [facility] Last Admin: 09/30/16 09:17 Dose: 100 mg Donepezil HCl (Aricept) 5 mg PO BEDTIME [facility] Last Admin: 09/29/16 21:24 Dose: 5 mg Dorzolamide HCl (Trusopt 2% Ophth Soln) 0 ml EYEBOTH BID [facility] Last Admin: 09/30/16 09:18 Dose: 1 drop Haloperidol Lactate (Haldol) 3 mg IM Q8H PRN PRN Reason: Agitation Last Admin: 09/30/16 02:10 Dose: 3 mg Sodium Chloride (Normal Saline) 1,000 mls @ 100 mls/hr IV ASDIRECTED [facility] Last Admin: 09/30/16 15:25 Dose: 100 mls/hr Meropenem 1 gm/ Sodium (Chloride) 100 mls @ 200 mls/hr IV Q8H [facility] Last Admin: 09/30/16 13:14 Dose: 200 mls/hr Levetiracetam (Keppra) 500 mg PO BID [facility] Last Admin: 09/30/16 09:17 Dose: 500 mg Levothyroxine Sodium (Synthroid) 100 mcg PO ACBREAKFAST [facility] Last Admin: 09/30/16 09:15 Dose: 100 mcg Lorazepam (Ativan) 1 mg IVPUSH Q6H PRN PRN Reason: Anxiety Last Admin: 09/30/16 00:23 Dose: 1 mg Magnesium Hydroxide (Milk Of Magnesia) 30 ml PO DAILY PRN PRN Reason: Constipation Melatonin (Melatonin) 9 mg PO BEDTIME [facility] Last Admin: 09/29/16 21:25 Dose: 9 mg Mineral Oil/White Petrolatum (Lacri-Lube S.O.P Oint) 0 gm EYEBOTH BID [facility] Last Admin: 09/30/16 09:18 Dose: 1 applic Ondansetron HCl (Zofran Odt) 4 mg PO Q4H PRN PRN Reason: nausea, able to take PO Polyethylene Glycol (Miralax) 17 gm PO Q48H [facility] Last Admin: 09/28/16 23:30 Dose: Not Given Risperidone (Risperidal) 1 mg PO TID [facility] Last Admin: 09/30/16 14:48 Dose: 1 mg Sodium Chloride (Saline Flush) 10 ml FLUSH ASDIRECTED PRN PRN Reason: Keep Vein Open Sodium Chloride (Saline Flush) 2.5 ml FLUSH ASDIRECTED PRN PRN Reason: Keep Vein Open Temazepam (Restoril) 15 mg PO BEDTIME PRN PRN Reason: Sleep Trazodone HCl (Trazodone) 50 mg PO TID [facility] Last Admin: 09/30/16 14:48 Dose: 50 mg Discontinued Medications Acetaminophen (Tylenol Extra Strength) 1,000 mg PO Q6H PRN PRN Reason: Pain/Fever Sodium Chloride (Normal Saline) 1,000 mls @ 100 mls/hr IV ASDIRECTED [facility] Sodium Chloride (Normal Saline) 1,000 mls @ 999 mls/hr IV .Bolus ONE Stop: 09/28/16 02:05 Last Admin: 09/28/16 01:12 Dose: 999 mls/hr Magnesium Sulfate 2 gm/ Premix 50 mls @ 25 mls/hr IV ONETIME ONE Stop: 09/29/16 10:35 Last Admin: 09/29/16 08:54 Dose: 25 mls/hr Magnesium Sulfate 2 gm/ Premix 50 mls @ 25 mls/hr IV ONETIME ONE Stop: 09/30/16 11:36 Last Admin: 09/30/16 09:56 Dose: 25 mls/hr Lorazepam (Ativan) 1 mg IM ONETIME ONE Stop: 09/26/16 20:28 Last Admin: 09/26/16 20:32 Dose: 1 mg Risperidone (Risperidal) 1 mg PO TID [facility] Last Admin: 09/27/16 05:54 Dose: Not Given Telmisartan (Micardis) 20 mg PO BID [facility] Last Admin: 09/28/16 11:59 Dose: Not Given - Plan Plan:: Patient seen and examined , agree with assessment and plan
[2016-09-30] MEDS: Albuterol/Ipratropium 3.0-0.5 MG/3 ML Neb Soln NEB PRN (11:21)
[2016-09-30] MEDS: Melatonin 3 MG Tab PO SCH (21:45)
[2016-09-30] MEDS: Donepezil 5 MG Tab PO SCH (21:45)
[2016-09-30] MEDS: atorvaSTATin 10 MG Tab PO SCH (21:46)
[2016-09-30] MEDS: Polyethylene Glycol 3350 Powder 17 GM Packet PO SCH (21:49)
[2016-10-01] MEDS: Carboxymethylcellulose Sodium 0.5% Ophth Soln 0.4 ML UD Box of 30 EYELF SCH ×5 (00:57→23:49)
[2016-10-01] MEDS: Sodium Chloride 0.9% 1,000 ML IV SCH ×2 (02:56→13:01)
[2016-10-01] MEDS: Albuterol/Ipratropium 3.0-0.5 MG/3 ML Neb Soln NEB PRN (02:58)
[2016-10-01] MEDS: Meropenem 1 GM in Sodium Chloride 0.9% 100 ML IV SCH ×3 (05:07→20:20)
[2016-10-01] MEDS: risperiDONE 1 MG Tab PO SCH ×4 (05:08→23:26)
[2016-10-01] MEDS: traZODone 50 MG Tab PO SCH ×4 (05:08→23:26)
[2016-10-01 05:55] LABS: CHLORIDE,CL 112 mmol/L (98-110); SODIUM,NA 143 mmol/L (136-146)
[2016-10-01] MEDS: Levothyroxine 100 MCG Tab PO SCH (06:31)
[2016-10-01] MEDS: Divalproex Sodium Delayed-Release 125 MG Cap.Sprink PO SCH ×2 (10:01→20:19)
[2016-10-01] MEDS: levETIRAcetam 500 MG Tab PO SCH ×2 (10:01→20:19)
[2016-10-01] MEDS: Docusate Sodium 100 MG Cap PO SCH ×2 (10:01→20:19)
[2016-10-01] MEDS: Mineral Oil/Petrolatum Ophth Oint 3.5 GM Tube EYEBOTH SCH ×2 (10:03→20:19)
[2016-10-01] MEDS: Dorzolamide 2% Ophth Soln 10 ML Bottle EYEBOTH SCH ×2 (10:03→20:19)
--- NOTE | 2016-10-01 10:29 | PCM.PN ---
<Sharmaine Kramer - Last Filed: 10/01/16 10:23> - General Info Date of Service: 10/01/16 Functional Status: Reports: tolerating diet - Review of Systems General: Reports: no symptoms HEENT: Reports: no symptoms Pulmonary: Reports: no symptoms Cardiovascular: Reports: no symptoms Gastrointestinal: Reports: No symptoms Genitourinary: Reports: no symptoms Musculoskeletal: Reports: no symptoms Skin: Reports: no symptoms Neurological: Reports: no symptoms Psychiatric: Reports: no symptoms - Patient Data Vitals - most recent: Last Vital Signs Temp 97.3 F 10/01/16 08:36 Pulse 73 10/01/16 08:00 Resp 18 10/01/16 08:00 BP 105/66 10/01/16 08:00 Pulse Ox 94 L 10/01/16 08:00 Weight - most recent: 178 lb 9.191 oz I&O - last 24 hours: Intake & Output 09/30/16 10/01/16 10/01/16 22:59 06:59 14:59 Intake Total 1362 250 Output Total 900 Balance 462 250 Lab Results last 24 hrs: Laboratory Results - last 24 hr 10/01/16 10/01/16 Range/Units 05:11 05:11 WBC 5.65 (4.0-11.0) K/uL RBC 2.59 L (4.50-5.90) M/uL Hgb 8.1 L (13.0-17.0) g/dL Hct 24.8 L (38.0-50.0) % MCV 95.8 (80.0-98.0) fL MCH 31.3 (27.0-32.0) pg MCHC 32.7 (31.0-37.0) g/dL RDW Std Deviation 47.1 (28.0-62.0) fl RDW Coeff of Rowdy 14 (11.0-15.0) % Plt Count 207 (150-400) K/uL MPV 9.70 (7.40-12.00) fL Neut % (Auto) 59.2 (48.0-80.0) % Lymph % (Auto) 19.1 (16.0-40.0) % Castro % (Auto) 11.0 (0.0-15.0) % Eos % (Auto) 10.3 H (0.0-7.0) % Baso % (Auto) 0.4 (0.0-1.5) % Neut # 3.4 (1.4-5.7) K/uL Lymph # 1.1 (0.6-2.4) K/uL Castro # 0.6 (0.0-0.8) K/uL Eos # 0.6 (0.0-0.7) K/uL Baso # 0.0 (0.0-0.1) K/uL Nucleated RBC % 0.0 /100WBC Nucleated RBCs # 0 K/uL Sodium 143 (136-146) mmol/L Potassium 3.4 L (3.5-5.1) mmol/L Chloride 112 H (98-110) mmol/L Carbon Dioxide 25 (21-31) mmol/L BUN 8 (6.0-23.0) mg/dL Creatinine 0.7 (0.6-1.5) mg/dL Est Cr Clr Drug Dosing 70.65 mL/min Estimated GFR (MDRD) > 60.0 ml/min Glucose 96 (60-110) mg/dL Calcium 8.2 L (8.8-10.8) mg/dL Magnesium 1.5 (1.5-2.3) mEq/L Total Bilirubin 0.4 (0.1-1.5) mg/dL AST 12 (5-40) IU/L ALT 13 (8-54) IU/L Alkaline Phosphatase 63 (40-150) Total Protein 4.9 L (6.0-8.0) g/dL Albumin 2.7 L (3.4-4.8) g/dL Globulin 2.2 (2.0-3.5) g/dL Albumin/Globulin Ratio 1.2 L (1.3-2.8) Med Orders - Current: Current Medications Acetaminophen (Tylenol) 650 mg PO Q4H PRN PRN Reason: Pain (Mild 1-3)/fever Albuterol/Ipratropium (Duoneb 3.0-0.5 Mg/3 Ml) 3 ml NEB Q4HRRT PRN PRN Reason: Shortness of Breath Last Admin: 10/01/16 02:58 Dose: 3 ml Artificial Tears (Refresh Plus 0.5%) 0 each EYELF QID [facility] Last Admin: 10/01/16 05:08 Dose: 1 drop Atorvastatin Calcium (Lipitor) 10 mg PO BEDTIME [facility] Last Admin: 09/30/16 21:46 Dose: 10 mg Atropine Sulfate (Isopto Atropine 1% Ophth Soln) 0 ml SL Q1H PRN PRN Reason: SECRETIONS Belladonna Alkaloids/Opium (B & O Supprettes No. 15a) 1 supp RECTAL Q4H PRN PRN Reason: Spasms Last Admin: 09/28/16 18:46 Dose: 1 supp Bisacodyl (Dulcolax) 10 mg RECTAL Q24H PRN PRN Reason: Constipation Divalproex Sodium (Depakote Sprinkle) 250 mg PO BID [facility] Last Admin: 10/01/16 10:01 Dose: 250 mg Docusate Sodium (Colace) 100 mg PO BID [facility] Last Admin: 10/01/16 10:01 Dose: 100 mg Donepezil HCl (Aricept) 5 mg PO BEDTIME [facility] Last Admin: 09/30/16 21:45 Dose: 5 mg Dorzolamide HCl (Trusopt 2% Ophth Soln) 0 ml EYEBOTH BID [facility] Last Admin: 10/01/16 10:03 Dose: 1 drop Ferrous Sulfate (Ferrous Sulfate) 325 mg PO TIDMEALS [facility] Haloperidol Lactate (Haldol) 3 mg IM Q8H PRN PRN Reason: Agitation Last Admin: 09/30/16 02:10 Dose: 3 mg Sodium Chloride (Normal Saline) 1,000 mls @ 100 mls/hr IV ASDIRECTED [facility] Last Admin: 10/01/16 02:56 Dose: 100 mls/hr Meropenem 1 gm/ Sodium (Chloride) 100 mls @ 200 mls/hr IV Q8H [facility] Last Admin: 10/01/16 05:07 Dose: 200 mls/hr Levetiracetam (Keppra) 500 mg PO BID [facility] Last Admin: 10/01/16 10:01 Dose: 500 mg Levothyroxine Sodium (Synthroid) 100 mcg PO ACBREAKFAST [facility] Last Admin: 10/01/16 06:31 Dose: 100 mcg Lorazepam (Ativan) 1 mg IVPUSH Q6H PRN PRN Reason: Anxiety Last Admin: 09/30/16 00:23 Dose: 1 mg Magnesium Hydroxide (Milk Of Magnesia) 30 ml PO DAILY PRN PRN Reason: Constipation Melatonin (Melatonin) 9 mg PO BEDTIME [facility] Last Admin: 09/30/16 21:45 Dose: 9 mg Mineral Oil/White Petrolatum (Lacri-Lube S.O.P Oint) 0 gm EYEBOTH BID [facility] Last Admin: 10/01/16 10:03 Dose: 1 applic Ondansetron HCl (Zofran Odt) 4 mg PO Q4H PRN PRN Reason: nausea, able to take PO Polyethylene Glycol (Miralax) 17 gm PO Q48H [facility] Last Admin: 09/30/16 21:49 Dose: 17 gm Risperidone (Risperidal) 1 mg PO TID [facility] Last Admin: 10/01/16 05:08 Dose: 1 mg Sodium Chloride (Saline Flush) 10 ml FLUSH ASDIRECTED PRN PRN Reason: Keep Vein Open Sodium Chloride (Saline Flush) 2.5 ml FLUSH ASDIRECTED PRN PRN Reason: Keep Vein Open Temazepam (Restoril) 15 mg PO BEDTIME PRN PRN Reason: Sleep Trazodone HCl (Trazodone) 50 mg PO TID [facility] Last Admin: 10/01/16 05:08 Dose: 50 mg Discontinued Medications Acetaminophen (Tylenol Extra Strength) 1,000 mg PO Q6H PRN PRN Reason: Pain/Fever Sodium Chloride (Normal Saline) 1,000 mls @ 100 mls/hr IV ASDIRECTED [facility] Sodium Chloride (Normal Saline) 1,000 mls @ 999 mls/hr IV .Bolus ONE Stop: 09/28/16 02:05 Last Admin: 09/28/16 01:12 Dose: 999 mls/hr Magnesium Sulfate 2 gm/ Premix 50 mls @ 25 mls/hr IV ONETIME ONE Stop: 09/29/16 10:35 Last Admin: 09/29/16 08:54 Dose: 25 mls/hr Magnesium Sulfate 2 gm/ Premix 50 mls @ 25 mls/hr IV ONETIME ONE Stop: 09/30/16 11:36 Last Admin: 09/30/16 09:56 Dose: 25 mls/hr Lorazepam (Ativan) 1 mg IM ONETIME ONE Stop: 09/26/16 20:28 Last Admin: 09/26/16 20:32 Dose: 1 mg Risperidone (Risperidal) 1 mg PO TID [facility] Last Admin: 09/27/16 05:54 Dose: Not Given Telmisartan (Micardis) 20 mg PO BID [facility] Last Admin: 09/28/16 11:59 Dose: Not Given - Exam General: alert, cooperative, no acute distress HEENT: Pupils equal, EOMI Neck: supple Lungs: Normal respiratory effort, Decreased breath sounds Cardiovascular: regular rate, regular rhythm Abdomen: bowel sounds present, soft, no tenderness Back Exam: normal inspection Extremities: edema (trace ankle edema) Skin: warm, dry, intact Neurological: no new focal deficit Psy/Mental Status: alert, normal affect, normal mood - Problem List Review Problem List Initiated/Reviewed/Updated: Yes - My Orders Last 24 Hours: My Active Orders 09/30/16 10:29 RT Aerosol Therapy [RC] ASDIRECTED Albuterol/Ipratropium [DuoNeb 3.0-0.5 MG/3 ML] 3 ml NEB Q4HRRT PRN 10/02/16 05:11 CBC WITH AUTO DIFF [HEME] AM 10/03/16 05:11 CBC WITH AUTO DIFF [HEME] AM - Plan Plan:: Recurrent Ecoli urinary infection Continue Meropenam for 2 more days anticipate discharge to [place] tomorrow. <Yady Skelton - Last Filed: 10/01/16 17:10> - Patient Data Vitals - most recent: Last Vital Signs Temp 98.1 F 10/01/16 15:49 Pulse 96 10/01/16 15:49 Resp 20 10/01/16 15:49 BP 125/82 10/01/16 15:49 Pulse Ox 96 10/01/16 15:49 I&O - last 24 hours: Intake & Output 10/01/16 10/01/16 10/01/16 06:59 14:59 22:59 Intake Total 250 Balance 250 Lab Results last 24 hrs: Laboratory Results - last 24 hr 10/01/16 10/01/16 Range/Units 05:11 05:11 WBC 5.65 (4.0-11.0) K/uL RBC 2.59 L (4.50-5.90) M/uL Hgb 8.1 L (13.0-17.0) g/dL Hct 24.8 L (38.0-50.0) % MCV 95.8 (80.0-98.0) fL MCH 31.3 (27.0-32.0) pg MCHC 32.7 (31.0-37.0) g/dL RDW Std Deviation 47.1 (28.0-62.0) fl RDW Coeff of Rowdy 14 (11.0-15.0) % Plt Count 207 (150-400) K/uL MPV 9.70 (7.40-12.00) fL Neut % (Auto) 59.2 (48.0-80.0) % Lymph % (Auto) 19.1 (16.0-40.0) % Castro % (Auto) 11.0 (0.0-15.0) % Eos % (Auto) 10.3 H (0.0-7.0) % Baso % (Auto) 0.4 (0.0-1.5) % Neut # 3.4 (1.4-5.7) K/uL Lymph # 1.1 (0.6-2.4) K/uL Castro # 0.6 (0.0-0.8) K/uL Eos # 0.6 (0.0-0.7) K/uL Baso # 0.0 (0.0-0.1) K/uL Nucleated RBC % 0.0 /100WBC Nucleated RBCs # 0 K/uL Sodium 143 (136-146) mmol/L Potassium 3.4 L (3.5-5.1) mmol/L Chloride 112 H (98-110) mmol/L Carbon Dioxide 25 (21-31) mmol/L BUN 8 (6.0-23.0) mg/dL Creatinine 0.7 (0.6-1.5) mg/dL Est Cr Clr Drug Dosing 70.65 mL/min Estimated GFR (MDRD) > 60.0 ml/min Glucose 96 (60-110) mg/dL Calcium 8.2 L (8.8-10.8) mg/dL Magnesium 1.5 (1.5-2.3) mEq/L Total Bilirubin 0.4 (0.1-1.5) mg/dL AST 12 (5-40) IU/L ALT 13 (8-54) IU/L Alkaline Phosphatase 63 (40-150) Total Protein 4.9 L (6.0-8.0) g/dL Albumin 2.7 L (3.4-4.8) g/dL Globulin 2.2 (2.0-3.5) g/dL Albumin/Globulin Ratio 1.2 L (1.3-2.8) Med Orders - Current: Current Medications Acetaminophen (Tylenol) 650 mg PO Q4H PRN PRN Reason: Pain (Mild 1-3)/fever Albuterol/Ipratropium (Duoneb 3.0-0.5 Mg/3 Ml) 3 ml NEB Q4HRRT PRN PRN Reason: Shortness of Breath Last Admin: 10/01/16 02:58 Dose: 3 ml Artificial Tears (Refresh Plus 0.5%) 0 each EYELF QID [facility] Last Admin: 10/01/16 13:00 Dose: 1 drop Atorvastatin Calcium (Lipitor) 10 mg PO BEDTIME [facility] Last Admin: 09/30/16 21:46 Dose: 10 mg Atropine Sulfate (Isopto Atropine 1% Ophth Soln) 0 ml SL Q1H PRN PRN Reason: SECRETIONS Belladonna Alkaloids/Opium (B & O Supprettes No. 15a) 1 supp RECTAL Q4H PRN PRN Reason: Spasms Last Admin: 09/28/16 18:46 Dose: 1 supp Bisacodyl (Dulcolax) 10 mg RECTAL Q24H PRN PRN Reason: Constipation Divalproex Sodium (Depakote Sprinkle) 250 mg PO BID [facility] Last Admin: 10/01/16 10:01 Dose: 250 mg Docusate Sodium (Colace) 100 mg PO BID [facility] Last Admin: 10/01/16 10:01 Dose: 100 mg Donepezil HCl (Aricept) 5 mg PO BEDTIME [facility] Last Admin: 09/30/16 21:45 Dose: 5 mg Dorzolamide HCl (Trusopt 2% Ophth Soln) 0 ml EYEBOTH BID [facility] Last Admin: 10/01/16 10:03 Dose: 1 drop Ferrous Sulfate (Ferrous Sulfate) 325 mg PO TIDMEALS [facility] Last Admin: 10/01/16 16:35 Dose: 325 mg Haloperidol Lactate (Haldol) 3 mg IM Q8H PRN PRN Reason: Agitation Last Admin: 09/30/16 02:10 Dose: 3 mg Sodium Chloride (Normal Saline) 1,000 mls @ 100 mls/hr IV ASDIRECTED [facility] Last Admin: 10/01/16 13:01 Dose: 100 mls/hr Meropenem 1 gm/ Sodium (Chloride) 100 mls @ 200 mls/hr IV Q8H [facility] Last Admin: 10/01/16 13:00 Dose: 200 mls/hr Levetiracetam (Keppra) 500 mg PO BID [facility] Last Admin: 10/01/16 10:01 Dose: 500 mg Levothyroxine Sodium (Synthroid) 100 mcg PO ACBREAKFAST [facility] Last Admin: 10/01/16 06:31 Dose: 100 mcg Lorazepam (Ativan) 1 mg IVPUSH Q6H PRN PRN Reason: Anxiety Last Admin: 10/01/16 17:04 Dose: 1 mg Magnesium Hydroxide (Milk Of Magnesia) 30 ml PO DAILY PRN PRN Reason: Constipation Melatonin (Melatonin) 9 mg PO BEDTIME [facility] Last Admin: 09/30/16 21:45 Dose: 9 mg Mineral Oil/White Petrolatum (Lacri-Lube S.O.P Oint) 0 gm EYEBOTH BID [facility] Last Admin: 10/01/16 10:03 Dose: 1 applic Ondansetron HCl (Zofran Odt) 4 mg PO Q4H PRN PRN Reason: nausea, able to take PO Polyethylene Glycol (Miralax) 17 gm PO Q48H [facility] Last Admin: 09/30/16 21:49 Dose: 17 gm Potassium Chloride (Klor-Con M20) 40 meq PO DAILY [facility] Last Admin: 10/01/16 13:00 Dose: 40 meq Risperidone (Risperidal) 1 mg PO TID [facility] Last Admin: 10/01/16 13:00 Dose: 1 mg Sodium Chloride (Saline Flush) 10 ml FLUSH ASDIRECTED PRN PRN Reason: Keep Vein Open Sodium Chloride (Saline Flush) 2.5 ml FLUSH ASDIRECTED PRN PRN Reason: Keep Vein Open Temazepam (Restoril) 15 mg PO BEDTIME PRN PRN Reason: Sleep Trazodone HCl (Trazodone) 50 mg PO TID [facility] Last Admin: 10/01/16 13:00 Dose: 50 mg Discontinued Medications Acetaminophen (Tylenol Extra Strength) 1,000 mg PO Q6H PRN PRN Reason: Pain/Fever Sodium Chloride (Normal Saline) 1,000 mls @ 100 mls/hr IV ASDIRECTED [facility] Sodium Chloride (Normal Saline) 1,000 mls @ 999 mls/hr IV .Bolus ONE Stop: 09/28/16 02:05 Last Admin: 09/28/16 01:12 Dose: 999 mls/hr Magnesium Sulfate 2 gm/ Premix 50 mls @ 25 mls/hr IV ONETIME ONE Stop: 09/29/16 10:35 Last Admin: 09/29/16 08:54 Dose: 25 mls/hr Magnesium Sulfate 2 gm/ Premix 50 mls @ 25 mls/hr IV ONETIME ONE Stop: 09/30/16 11:36 Last Admin: 09/30/16 09:56 Dose: 25 mls/hr Lorazepam (Ativan) 1 mg IM ONETIME ONE Stop: 09/26/16 20:28 Last Admin: 09/26/16 20:32 Dose: 1 mg Risperidone (Risperidal) 1 mg PO TID [facility] Last Admin: 09/27/16 05:54 Dose: Not Given Telmisartan (Micardis) 20 mg PO BID [facility] Last Admin: 09/28/16 11:59 Dose: Not Given - My Orders Last 24 Hours: My Active Orders 10/01/16 12:00 Ferrous Sulfate 325 mg PO TIDMEALS - Plan Plan:: Patient seen and examined , had clear urine today Agree with assessment and plan
[2016-10-01] MEDS: Ferrous Sulfate 325 MG Tab PO SCH ×2 (13:00→16:35)
[2016-10-01] MEDS: Potassium Chloride 20 MEQ Tab.ER PO SCH (13:00)
[2016-10-01] MEDS: LORazepam 2 MG/ML MDV IVPUSH PRN (17:04)
[2016-10-01] MEDS: Melatonin 3 MG Tab PO SCH (20:19)
[2016-10-01] MEDS: atorvaSTATin 10 MG Tab PO SCH (20:19)
[2016-10-01] MEDS: Donepezil 5 MG Tab PO SCH (20:19)
[2016-10-02] MEDS: Sodium Chloride 0.9% 1,000 ML IV SCH (00:21)
[2016-10-02] MEDS: LORazepam 2 MG/ML MDV IVPUSH PRN (03:56)
[2016-10-02] MEDS: Meropenem 1 GM in Sodium Chloride 0.9% 100 ML IV SCH (04:11)
[2016-10-02] MEDS: Haloperidol Lactate 5 MG/ML SDV IM PRN (04:12)
[2016-10-02] MEDS: Carboxymethylcellulose Sodium 0.5% Ophth Soln 0.4 ML UD Box of 30 EYELF SCH (06:31)
[2016-10-02] MEDS: Levothyroxine 100 MCG Tab PO SCH (06:31)
[2016-10-02] MEDS: risperiDONE 1 MG Tab PO SCH (06:31)
[2016-10-02] MEDS: traZODone 50 MG Tab PO SCH (06:31)
[2016-10-02] MEDS: Ferrous Sulfate 325 MG Tab PO SCH (08:59)
[2016-10-02 09:02] VITALS: BP 155/88
[2016-10-02] MEDS: levETIRAcetam 500 MG Tab PO SCH (09:07)
[2016-10-02] MEDS: Docusate Sodium 100 MG Cap PO SCH (09:09)
[2016-10-02] MEDS: Dorzolamide 2% Ophth Soln 10 ML Bottle EYEBOTH SCH (09:10)
[2016-10-02] MEDS: Potassium Chloride 20 MEQ Tab.ER PO SCH (09:10)
[2016-10-02] MEDS: Mineral Oil/Petrolatum Ophth Oint 3.5 GM Tube EYEBOTH SCH (09:10)
[2016-10-02] MEDS: Divalproex Sodium Delayed-Release 125 MG Cap.Sprink PO SCH (09:11)
--- NOTE | 2016-10-02 09:25 | PCM.DCSUM1 ---
Discharge Summary - Hospital Course Free Text/Narrative:: 86 yo male readmitted due to recurrent gross hematuria and falls. He was recently discharged to [facility] after consultation of urology who recommended no further management earlier today. blood culture negative. His UA showed recurrent Ecoli infection which was sensitive for meropenam. His hematuria was resolved and he was disharged to [facility]. - Discharge Data Discharge Date: 10/02/16 Discharge Disposition: DC/Tfer to [facility] 03 Condition: Fair - Patient Instructions Diet: Regular Diet as Tolerated Activity: As Tolerated Driving: Do Not Drive Showering/Bathing: May Shower Notify Provider of: Fever, Increased Pain, Swelling and Redness, Drainage, Nausea and/or Vomiting - Discharge Plan Prescriptions/Med Rec: Nitrofurantoin Monohyd/M-Cryst [Macrobid 100 mg Capsule] 100 mg PO BID #10 capsule Home Medications: Home Meds Acetaminophen [Tylenol Extra Strength] 1,000 mg PO Q6H PRN 06/09/15 [History] Docusate Sodium 100 mg PO BID 06/09/15 [History] Magnesium Hydroxide [Milk of Magnesia] 30 ml PO DAILY PRN 06/09/15 [History] Multivitamin with Minerals [Multivitamins with Minerals] 1 each PO DAILY [History] Polyethylene Glycol 3350 [MiraLAX] 17 gm PO Q48H 06/09/15 [History] Propylene Glycol/Peg 400 [Systane 0.3-0.4% Eye Drops] 1 drop EYELF QID 06/09/15 [History] risperiDONE [Risperdal] 1 mg PO TID 06/09/15 [History] Calcium Citrate/Vitamin D3 [Calcium Cit-Vit D 315-200] 1 each PO DAILY 12/19/15 [History] Dorzolamide [Trusopt 2% Ophth Soln] 1 drop EYEBOTH BID 12/19/15 [History] Furosemide [Lasix] 20 mg PO DAILY 12/19/15 [History] Ibuprofen [Motrin] 400 mg PO Q6H PRN 12/19/15 [History] Levothyroxine [Synthroid] 100 mcg PO ACBREAKFAST 12/19/15 [History] Melatonin 9 mg PO BEDTIME 12/19/15 [History] Telmisartan 20 mg PO BID 12/19/15 [History] levETIRAcetam [Keppra] 500 mg PO BID 12/19/15 [History] LORazepam 0.5 mg PO ONETIME PRN 05/17/16 [History] Donepezil [Aricept] 5 mg PO BEDTIME 06/11/16 [History] atorvaSTATin [Lipitor] 10 mg PO BEDTIME 06/11/16 [History] Mineral Oil/Petrolatum,White [Artificial Tears Eye Ointment] 1 applic EYEBOTH BID 06/12/16 [History] Potassium Chloride [Klor-Con] 10 meq PO DAILY 06/12/16 [History] Aspirin [Ecotrin] 81 mg PO DAILY 09/25/16 [History] Atropine 1% [Isopto Atropine 1% Ophth Soln] 2 drop SL Q1H PRN 09/25/16 [History] Bisacodyl [Dulcolax] 10 mg RC Q24H PRN 09/25/16 [History] Dextromethorphan Polistirex [Delsym] 10 ml PO Q12H PRN 09/25/16 [History] Divalproex Sodium [Depakote Sprinkle] 250 mg PO BID 09/25/16 [History] traZODone HCl [Trazodone HCl] 50 mg PO TID 09/25/16 [History] Nitrofurantoin Monohyd/M-Cryst [Macrobid 100 mg Capsule] 100 mg PO BID #10 capsule 10/02/16 [Rx] Patient Handouts: Nitrofurantoin tablets or capsules, Hematuria, Adult Referrals: Ezra Casper MD [Primary Care Provider] - 10/06/16 - General Info Date of Service: 10/02/16 - Review of Systems General: Reports: no symptoms HEENT: Reports: no symptoms Pulmonary: Reports: no symptoms Cardiovascular: Reports: no symptoms Gastrointestinal: Reports: No symptoms Genitourinary: Reports: no symptoms Musculoskeletal: Reports: no symptoms Skin: Reports: no symptoms Neurological: Reports: no symptoms Psychiatric: Reports: no symptoms - Patient Data Vitals - Most Recent: Last Vital Signs Temp 97 F 10/02/16 08:00 Pulse 98 10/02/16 08:00 Resp 18 10/02/16 08:00 BP 155/88 H 10/02/16 08:00 Pulse Ox 99 10/02/16 08:00 Weight - Most Recent: 81 kg I&O - Last 24 hours: Intake & Output 10/01/16 10/02/16 10/02/16 22:59 06:59 14:59 Intake Total 120 50 Balance 120 50 Lab Results - Last 24 hrs: Laboratory Results - last 24 hr 10/02/16 Range/Units 06:23 WBC 5.10 (4.0-11.0) K/uL RBC 2.76 L (4.50-5.90) M/uL Hgb 8.6 L (13.0-17.0) g/dL Hct 26.2 L (38.0-50.0) % MCV 94.9 (80.0-98.0) fL MCH 31.2 (27.0-32.0) pg MCHC 32.8 (31.0-37.0) g/dL RDW Std Deviation 46.5 (28.0-62.0) fl RDW Coeff of Rowdy 14 (11.0-15.0) % Plt Count 218 (150-400) K/uL MPV 9.70 (7.40-12.00) fL Neut % (Auto) 58.0 (48.0-80.0) % Lymph % (Auto) 20.0 (16.0-40.0) % Emmet % (Auto) 11.4 (0.0-15.0) % Eos % (Auto) 10.2 H (0.0-7.0) % Baso % (Auto) 0.4 (0.0-1.5) % Neut # 3.0 (1.4-5.7) K/uL Lymph # 1.0 (0.6-2.4) K/uL Emmet # 0.6 (0.0-0.8) K/uL Eos # 0.5 (0.0-0.7) K/uL Baso # 0.0 (0.0-0.1) K/uL Nucleated RBC % 0.0 /100WBC Nucleated RBCs # 0 K/uL Med Orders - Current: Current Medications Acetaminophen (Tylenol) 650 mg PO Q4H PRN PRN Reason: Pain (Mild 1-3)/fever Albuterol/Ipratropium (Duoneb 3.0-0.5 Mg/3 Ml) 3 ml NEB Q4HRRT PRN PRN Reason: Shortness of Breath Last Admin: 10/01/16 02:58 Dose: 3 ml Artificial Tears (Refresh Plus 0.5%) 0 each EYELF QID [facility] Last Admin: 10/02/16 06:31 Dose: 1 drop Atorvastatin Calcium (Lipitor) 10 mg PO BEDTIME [facility] Last Admin: 10/01/16 20:19 Dose: 10 mg Atropine Sulfate (Isopto Atropine 1% Ophth Soln) 0 ml SL Q1H PRN PRN Reason: SECRETIONS Belladonna Alkaloids/Opium (B & O Supprettes No. 15a) 1 supp RECTAL Q4H PRN PRN Reason: Spasms Last Admin: 09/28/16 18:46 Dose: 1 supp Bisacodyl (Dulcolax) 10 mg RECTAL Q24H PRN PRN Reason: Constipation Divalproex Sodium (Depakote Sprinkle) 250 mg PO BID [facility] Last Admin: 10/02/16 09:11 Dose: 250 mg Docusate Sodium (Colace) 100 mg PO BID [facility] Last Admin: 10/02/16 09:09 Dose: 100 mg Donepezil HCl (Aricept) 5 mg PO BEDTIME [facility] Last Admin: 10/01/16 20:19 Dose: 5 mg Dorzolamide HCl (Trusopt 2% Ophth Soln) 0 ml EYEBOTH BID [facility] Last Admin: 10/02/16 09:10 Dose: 1 drop Ferrous Sulfate (Ferrous Sulfate) 325 mg PO TIDMEALS [facility] Last Admin: 10/02/16 08:59 Dose: 325 mg Haloperidol Lactate (Haldol) 3 mg IM Q8H PRN PRN Reason: Agitation Last Admin: 10/02/16 04:12 Dose: 3 mg Sodium Chloride (Normal Saline) 1,000 mls @ 100 mls/hr IV ASDIRECTED [facility] Last Admin: 10/02/16 00:21 Dose: 100 mls/hr Meropenem 1 gm/ Sodium (Chloride) 100 mls @ 200 mls/hr IV Q8H [facility] Last Admin: 10/02/16 04:11 Dose: 200 mls/hr Levetiracetam (Keppra) 500 mg PO BID [facility] Last Admin: 10/02/16 09:07 Dose: 500 mg Levothyroxine Sodium (Synthroid) 100 mcg PO ACBREAKFAST [facility] Last Admin: 10/02/16 06:31 Dose: 100 mcg Lorazepam (Ativan) 1 mg IVPUSH Q6H PRN PRN Reason: Anxiety Last Admin: 10/02/16 03:56 Dose: 1 mg Magnesium Hydroxide (Milk Of Magnesia) 30 ml PO DAILY PRN PRN Reason: Constipation Melatonin (Melatonin) 9 mg PO BEDTIME [facility] Last Admin: 10/01/16 20:19 Dose: 9 mg Mineral Oil/White Petrolatum (Lacri-Lube S.O.P Oint) 0 gm EYEBOTH BID [facility] Last Admin: 10/02/16 09:10 Dose: 1 applic Ondansetron HCl (Zofran Odt) 4 mg PO Q4H PRN PRN Reason: nausea, able to take PO Polyethylene Glycol (Miralax) 17 gm PO Q48H [facility] Last Admin: 09/30/16 21:49 Dose: 17 gm Potassium Chloride (Klor-Con M20) 40 meq PO DAILY [facility] Last Admin: 10/02/16 09:10 Dose: 40 meq Risperidone (Risperidal) 1 mg PO TID [facility] Last Admin: 10/02/16 06:31 Dose: 1 mg Sodium Chloride (Saline Flush) 10 ml FLUSH ASDIRECTED PRN PRN Reason: Keep Vein Open Sodium Chloride (Saline Flush) 2.5 ml FLUSH ASDIRECTED PRN PRN Reason: Keep Vein Open Temazepam (Restoril) 15 mg PO BEDTIME PRN PRN Reason: Sleep Trazodone HCl (Trazodone) 50 mg PO TID [facility] [place] Last Admin: 10/02/16 06:31 Dose: 50 mg Discontinued Medications Acetaminophen (Tylenol Extra Strength) 1,000 mg PO Q6H PRN PRN Reason: Pain/Fever Sodium Chloride (Normal Saline) 1,000 mls @ 100 mls/hr IV ASDIRECTED [facility] [place] Sodium Chloride (Normal Saline) 1,000 mls @ 999 mls/hr IV .Bolus ONE Stop: 09/28/16 02:05 Last Admin: 09/28/16 01:12 Dose: 999 mls/hr Magnesium Sulfate 2 gm/ Premix 50 mls @ 25 mls/hr IV ONETIME ONE Stop: 09/29/16 10:35 Last Admin: 09/29/16 08:54 Dose: 25 mls/hr Magnesium Sulfate 2 gm/ Premix 50 mls @ 25 mls/hr IV ONETIME ONE Stop: 09/30/16 11:36 Last Admin: 09/30/16 09:56 Dose: 25 mls/hr Lorazepam (Ativan) 1 mg IM ONETIME ONE Stop: 09/26/16 20:28 Last Admin: 09/26/16 20:32 Dose: 1 mg Risperidone (Risperidal) 1 mg PO TID [facility] [place] Last Admin: 09/27/16 05:54 Dose: Not Given Telmisartan (Micardis) 20 mg PO BID [facility] [place] Last Admin: 09/28/16 11:59 Dose: Not Given - Exam General: Reports: alert, oriented HEENT: Reports: Pupils equal, EOMI Neck: Reports: supple, trachea midline Lungs: Reports: Clear to auscultation Abdomen: Reports: bowel sounds present, soft Back Exam: Reports: normal inspection Extremities: Reports: no edema Skin: Reports: warm, dry Neurological: Reports: no new focal deficit Psy/Mental Status: Reports: alert *Q Meaningful Use (DIS) - VTE *Q VTE Criteria *Q: - Stroke *Q Stroke Criteria *Q: - AMI *Q AMI Criteria *Q:
== END 2016-10-02 11:27 | DRG 690 ==
LOC: MW.ED 19:17 → MW.MS 21:00 → UNDOADMIN 22:15 → UNDODISIN 10-02 11:27
PROVIDERS: ADMIT Family Medicine; ATTEND Family Medicine
DX: N39.0 Urinary tract infection, site not specified (principal); B96.20 Unspecified Escherichia coli [E. coli] as the cause of diseases classified elsewhere; R31.9 Hematuria, unspecified; I95.9 Hypotension, unspecified; G30.9 Alzheimer's disease, unspecified; F02.80 Dementia in other diseases classified elsewhere, unspecified severity, without behavioral disturbance, psychotic disturbance, mood disturbance, and anxiety; E78.00 Pure hypercholesterolemia, unspecified; I10 Essential (primary) hypertension; J44.9 Chronic obstructive pulmonary disease, unspecified; F32.9 Major depressive disorder, single episode, unspecified; E03.9 Hypothyroidism, unspecified; Z88.0 Allergy status to penicillin; Z79.899 Other long term (current) drug therapy; Z91.81 History of falling
CPT/HCPCS: 36415; 85025; 96372; 99284; J2060; 80048; 80053; 83735; 94664; 99283; A9270-GY; J1630; J2185; J3475; J7030; J7040

== ENCOUNTER 2016-10-18 20:20 | Inpatient (IN) | payer MEDICARE, OTHER ==
[2016-10-18] MEDS ORDERED: Sodium Chloride 0.9% 1,000 ML IV ONE ×2 (20:42→22:35)
[2016-10-18] MEDS ORDERED: Acetaminophen 325 MG Supp RECTAL ONE (20:42)
[2016-10-18] MEDS ORDERED: Sodium Chloride 0.9% 2.5 ML Syringe FLUSH PRN (20:43)
[2016-10-18] MEDS ORDERED: Sodium Chloride 0.9% 10 ML Syringe FLUSH PRN (20:43)
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
[2016-10-18] MEDS ORDERED: LORazepam 2 MG/ML MDV IVPUSH ONE (21:25)
[2016-10-18] MEDS ORDERED: Levofloxacin/Dextrose 5%-Water 750 MG in Premix Bag 1 BAG IV ONE (22:04)
[2016-10-18] MEDS ORDERED: Cefepime 2 GM in Premix Bag 1 BAG IV SCH (22:15)
[2016-10-18 22:25] LABS: CHLORIDE,CL 107 mmol/L (98-110); SODIUM,NA 141 mmol/L (136-146)
[2016-10-19] MEDS ORDERED: Levofloxacin/Dextrose 5%-Water 750 MG in Premix Bag 1 BAG IV ONE ×2
[2016-10-19] MEDS ORDERED: Acetaminophen 325 MG Tab PO PRN (00:31)
[2016-10-19] MEDS ORDERED: Ondansetron 4 MG/2 ML SDV IVPUSH PRN (00:31)
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
[2016-10-19] MEDS: LORazepam 2 MG/ML MDV IVPUSH PRN ×3 (00:49→21:19)
[2016-10-19] MEDS: Divalproex Sodium Delayed-Release 125 MG Cap.Sprink PO SCH ×3 (00:52→20:15)
[2016-10-19] MEDS ORDERED: Meropenem 1 GM in Sodium Chloride 0.9% 100 ML IV SCH (01:00)
[2016-10-19] MEDS: levETIRAcetam 500 MG Tab PO SCH ×3 (01:35→20:14)
[2016-10-19] MEDS: Albuterol/Ipratropium 3.0-0.5 MG/3 ML Neb Soln NEB PRN ×2 (01:56→16:11)
[2016-10-19 04:02] LABS: CHLORIDE,CL 109 mmol/L (98-110); SODIUM,NA 141 mmol/L (136-146)
[2016-10-19] MEDS: traZODone 50 MG Tab PO SCH ×3 (05:27→21:14)
[2016-10-19] MEDS: risperiDONE 1 MG Tab PO SCH ×3 (05:28→21:14)
[2016-10-19] MEDS: Meropenem 1 GM in Sodium Chloride 0.9% 100 ML IV SCH ×3 (08:24→23:33)
[2016-10-19] MEDS ORDERED: Haloperidol Lactate 5 MG/ML SDV IM PRN (12:11)
--- NOTE | 2016-10-19 12:13 | PCM.PN ---
- Review of Systems Systems Review Comment:: nonverbal - Patient Data Vitals - most recent: Last Vital Signs Temp 36.7 C 10/19/16 11:20 Pulse 90 10/19/16 11:20 Resp 18 10/19/16 11:20 BP 120/59 L 10/19/16 11:20 Pulse Ox 97 10/19/16 11:20 Weight - most recent: 84 kg I&O - last 24 hours: Intake & Output 10/18/16 10/19/16 10/19/16 22:59 06:59 14:59 Intake Total 1900 Output Total 500 Balance 1400 Lab Results last 24 hrs: Laboratory Results - last 24 hr 10/18/16 10/19/16 10/19/16 Range/Units 23:16 02:20 02:20 WBC 11.05 H (4.0-11.0) K/uL RBC 2.84 L (4.50-5.90) M/uL Hgb 8.4 L (13.0-17.0) g/dL Hct 26.6 L (38.0-50.0) % MCV 93.7 (80.0-98.0) fL MCH 29.6 (27.0-32.0) pg MCHC 31.6 (31.0-37.0) g/dL RDW Std Deviation 48.9 (28.0-62.0) fl RDW Coeff of Rowdy 14 (11.0-15.0) % Plt Count 216 (150-400) K/uL MPV 9.50 (7.40-12.00) fL Add Manual Diff YES Neutrophils % (Manual) 75 (48.0-80.0) % Band Neutrophils % 8 % Lymphocytes % (Manual) 10 L (16.0-40.0) % Monocytes % (Manual) 7 (0.0-15.0) % Nucleated RBC % 0.0 /100WBC Absolute Seg Neuts 8.3 Band Neutrophils # 0.9 Lymphocytes # (Manual) 1.1 Monocytes # (Manual) 0.8 Nucleated RBCs # 0 K/uL Lactate 2.0 (0.20-2.00) mmol/L Sodium (136-146) mmol/L Potassium (3.5-5.1) mmol/L Chloride (98-110) mmol/L Carbon Dioxide (21-31) mmol/L BUN (6.0-23.0) mg/dL Creatinine (0.6-1.5) mg/dL Est Cr Clr Drug Dosing mL/min Estimated GFR (MDRD) ml/min Glucose (60-110) mg/dL Calcium (8.8-10.8) mg/dL Troponin I < 0.10 (0.0-0.29) NG/ML 10/19/16 Range/Units 02:20 WBC (4.0-11.0) K/uL RBC (4.50-5.90) M/uL Hgb (13.0-17.0) g/dL Hct (38.0-50.0) % MCV (80.0-98.0) fL MCH (27.0-32.0) pg MCHC (31.0-37.0) g/dL RDW Std Deviation (28.0-62.0) fl RDW Coeff of Rowdy (11.0-15.0) % Plt Count (150-400) K/uL MPV (7.40-12.00) fL Add Manual Diff Neutrophils % (Manual) (48.0-80.0) % Band Neutrophils % % Lymphocytes % (Manual) (16.0-40.0) % Monocytes % (Manual) (0.0-15.0) % Nucleated RBC % /100WBC Absolute Seg Neuts Band Neutrophils # Lymphocytes # (Manual) Monocytes # (Manual) Nucleated RBCs # K/uL Lactate (0.20-2.00) mmol/L Sodium 141 (136-146) mmol/L Potassium 3.9 (3.5-5.1) mmol/L Chloride 109 (98-110) mmol/L Carbon Dioxide 23 (21-31) mmol/L BUN 29 H (6.0-23.0) mg/dL Creatinine 0.9 (0.6-1.5) mg/dL Est Cr Clr Drug Dosing 54.95 mL/min Estimated GFR (MDRD) > 60.0 ml/min Glucose 92 (60-110) mg/dL Calcium 7.3 L (8.8-10.8) mg/dL Troponin I (0.0-0.29) NG/ML [place]ito Results last 24 hrs: Microbiology 10/19/16 02:20 Gram Stain - Preliminary Sputum - Other Med Orders - Current: Current Medications Acetaminophen (Tylenol) 650 mg PO Q4H PRN PRN Reason: Pain (Mild 1-3)/fever Last Admin: 10/19/16 01:55 Dose: 650 mg Albuterol/Ipratropium (Duoneb 3.0-0.5 Mg/3 Ml) 3 ml NEB Q4HRRT PRN PRN Reason: Shortness of Breath Last Admin: 10/19/16 01:56 Dose: 3 ml Divalproex Sodium (Depakote Sprinkle) 250 mg PO BID [facility] Last Admin: 10/19/16 10:19 Dose: 250 mg Levofloxacin/Dextrose 750 mg/ (Premix) 150 mls @ 100 mls/hr IV Q24H [facility] Vancomycin HCl 1 gm/ Sodium (Chloride) 250 mls @ 166 mls/hr IV Q24H [facility] Meropenem 1 gm/ Sodium (Chloride) 100 mls @ 200 mls/hr IV Q8H [facility] Last Admin: 10/19/16 08:24 Dose: 200 mls/hr Levetiracetam (Keppra) 500 mg PO BID [facility] Last Admin: 10/19/16 08:21 Dose: 500 mg Lorazepam (Ativan) 1 mg IVPUSH Q6H PRN PRN Reason: Agitation Last Admin: 10/19/16 08:21 Dose: 1 mg Melatonin (Melatonin) 9 mg PO BEDTIME [facility] Ondansetron HCl (Zofran) 4 mg IVPUSH Q4H PRN PRN Reason: Nausea Risperidone (Risperidal) 1 mg PO TID [facility] Last Admin: 10/19/16 05:28 Dose: 1 mg Sodium Chloride (Saline Flush) 10 ml FLUSH ASDIRECTED PRN PRN Reason: Keep Vein Open Sodium Chloride (Saline Flush) 2.5 ml FLUSH ASDIRECTED PRN PRN Reason: Keep Vein Open Trazodone HCl (Trazodone) 50 mg PO TID [facility] Last Admin: 10/19/16 05:27 Dose: 50 mg Vancomycin HCl (Pharmacy To Dose - Vancomycin) 1 dose .XX ASDIRECTED [facility] Discontinued Medications Acetaminophen (Tylenol) 325 mg RECTAL NOW ONE Stop: 10/18/16 20:43 Last Admin: 10/18/16 21:34 Dose: 325 mg Sodium Chloride (Normal Saline) 1,000 mls @ 999 mls/hr IV STAT ONE Stop: 10/18/16 21:42 Last Admin: 10/18/16 21:33 Dose: 999 mls/hr Aztreonam 1,000 mg/ Sodium (Chloride) 50 mls @ 100 mls/hr IV Q8HR [facility] Last Admin: 10/18/16 23:53 Dose: Not Given Levofloxacin/Dextrose 750 mg/ (Premix) 150 mls @ 100 mls/hr IV ONETIME ONE Stop: 10/18/16 23:33 Last Admin: 10/18/16 23:54 Dose: Not Given Vancomycin HCl 1 gm/ Sodium (Chloride) 250 mls @ 250 mls/hr IV ONETIME ONE Stop: 10/18/16 23:04 Last Admin: 10/18/16 22:27 Dose: 250 mls/hr Cefepime HCl 2 gm/ Premix 50 mls @ 100 mls/hr IV Q8H [facility] Last Admin: 10/18/16 23:55 Dose: 100 mls/hr Sodium Chloride (Normal Saline) 1,000 mls @ 999 mls/hr IV STAT ONE Stop: 10/18/16 23:35 Last Admin: 10/18/16 22:38 Dose: 999 mls/hr Levofloxacin/Dextrose 750 mg/ (Premix) 150 mls @ 100 mls/hr IV ONETIME ONE Stop: 10/19/16 01:29 Last Admin: 10/19/16 00:30 Dose: 100 mls/hr Meropenem 1 gm/ Sodium (Chloride) 100 mls @ 200 mls/hr IV Q8H [facility] Last Admin: 10/19/16 01:35 Dose: 200 mls/hr Vancomycin HCl 1 gm/ Sodium (Chloride) 250 mls @ 166 mls/hr IV ONETIME ONE Stop: 10/19/16 03:30 Last Admin: 10/19/16 01:55 Dose: 166 mls/hr Vancomycin HCl 1 gm/ Sodium (Chloride) 250 mls @ 166 mls/hr IV ONETIME ONE Stop: 10/20/16 04:30 Lorazepam (Ativan) 0.5 mg IVPUSH ONETIME ONE Stop: 10/18/16 21:26 Last Admin: 10/18/16 21:33 Dose: 0.5 mg - Exam General: no acute distress Lungs: Clear to auscultation, Normal respiratory effort Cardiovascular: Regular Rate, Regular Rhythm Extremities: no edema Skin: warm, dry, intact Neurological: no new focal deficit - Problem List Review Problem List Initiated/Reviewed/Updated: Yes - My Orders Last 24 Hours: My Active Orders 10/18/16 23:26 LORazepam [Ativan] 1 mg IVPUSH Q6H PRN 10/18/16 23:45 Divalproex Sodium [Depakote Sprinkle] 250 mg PO BID 10/19/16 00:30 Vancomycin Pharmacy to Dose [Pharmacy to Dose - Vancomycin] 1 dose .XX ASDIRECTED 10/19/16 00:31 Intake and Output [RC] Q12H Oxygen Therapy [RC] PRN Up ad Veronica [RC] ASDIRECTED Vital Signs [RC] Q4H Acetaminophen [Tylenol] 650 mg PO Q4H PRN Ondansetron [Zofran] 4 mg IVPUSH Q4H PRN Anticoagulation Contraindications VTE [AST] Per Unit Routine Sequential Compression Device [OM.PC] Per Unit Routine Resuscitation Status Routine 10/19/16 00:32 Antiembolic Devices [RC] PER UNIT ROUTINE 10/19/16 00:44 CULTURE URINE [RM] Routine 10/19/16 00:45 levETIRAcetam [Keppra] 500 mg PO BID 10/19/16 01:46 Albuterol/Ipratropium [DuoNeb 3.0-0.5 MG/3 ML] 3 ml NEB Q4HRRT PRN 10/19/16 01:47 RT Aerosol Therapy [RC] ASDIRECTED 10/19/16 02:20 CULTURE SPUTUM + SMEAR [RM] Routine 10/19/16 02:50 Communication Order [RC] ROUTINE 10/19/16 06:00 risperiDONE [RisperiDAL] 1 mg PO TID traZODone 50 mg PO TID 10/19/16 08:19 Meropenem [Merrem] 1 gm Sodium Chloride 0.9% [Normal Saline] 100 ml IV Q8H 10/19/16 12:11 Haloperidol Lactate [Haldol] 2 mg IM Q8H PRN 10/19/16 21:00 Melatonin 9 mg PO BEDTIME 10/19/16 Breakfast Mechanical Soft Diet [DIET] 10/20/16 01:00 Levofloxacin/Dextrose 5%-Water [Levaquin in D5W 750 MG/150 ML] 750 mg Premix Bag 1 bag IV Q24H 10/20/16 03:00 Vancomycin [Vancocin] 1 gm Sodium Chloride 0.9% [Normal Saline] 250 ml IV Q24H 10/20/16 05:11 BASIC METABOLIC PANEL,BMP [CHEM] AM CBC WITH AUTO DIFF [HEME] AM 10/21/16 05:11 BASIC METABOLIC PANEL,BMP [CHEM] AM CBC WITH AUTO DIFF [HEME] AM 10/22/16 05:11 BASIC METABOLIC PANEL,BMP [CHEM] AM CBC WITH AUTO DIFF [HEME] AM - Plan Plan:: 86 yo male admitted for pneumonia and UTI. Will continue vancomycin, meropenem , and levaquin. cultures are pending. Low and nathaniel for agitation.
[2016-10-19] MEDS: Melatonin 3 MG Tab PO SCH (20:15)
[2016-10-20] MEDS ORDERED: Levofloxacin/Dextrose 5%-Water 750 MG in Premix Bag 1 BAG IV SCH (01:00)
[2016-10-20 05:11] LABS: CHLORIDE,CL 108 mmol/L (98-110); SODIUM,NA 138 mmol/L (136-146)
[2016-10-20] MEDS: risperiDONE 1 MG Tab PO SCH ×3 (07:20→21:03)
[2016-10-20] MEDS: traZODone 50 MG Tab PO SCH ×3 (07:20→21:03)
--- NOTE | 2016-10-20 08:02 | PCM.PN ---
- General Info Date of Service: 10/20/16 Admission Dx/Problem (Free Text): Admission Diagnosis/Problem Admission Diagnosis/Problem Pneumonia Subjective Update: Resting in bed, no apparent distress. Unable to obtain ROS. Gilbert reports he had a niyah, slept most of it. Received Ativan around 2100 last evening. Functional Status: Reports: pain controlled, tolerating diet, ambulating, urinating - Patient Data Vitals - most recent: Last Vital Signs Temp 97.1 F 10/20/16 07:48 Pulse 82 10/20/16 07:48 Resp 20 10/20/16 07:48 BP 187/87 H 10/20/16 07:48 Pulse Ox 99 10/20/16 07:48 Weight - most recent: 84 kg I&O - last 24 hours: Intake & Output 10/19/16 10/20/16 10/20/16 22:59 06:59 14:59 Intake Total 600 830 Balance 600 830 Lab Results last 24 hrs: Laboratory Results - last 24 hr 10/20/16 10/20/16 Range/Units 04:28 04:28 WBC 8.50 (4.0-11.0) K/uL RBC 2.83 L (4.50-5.90) M/uL Hgb 8.3 L (13.0-17.0) g/dL Hct 26.4 L (38.0-50.0) % MCV 93.3 (80.0-98.0) fL MCH 29.3 (27.0-32.0) pg MCHC 31.4 (31.0-37.0) g/dL RDW Std Deviation 48.0 (28.0-62.0) fl RDW Coeff of Rowdy 14 (11.0-15.0) % Plt Count 210 (150-400) K/uL MPV 9.60 (7.40-12.00) fL Neut % (Auto) 81.4 H (48.0-80.0) % Lymph % (Auto) 8.8 L (16.0-40.0) % [place] % (Auto) 7.3 (0.0-15.0) % Eos % (Auto) 2.4 (0.0-7.0) % Baso % (Auto) 0.1 (0.0-1.5) % Neut # 6.9 H (1.4-5.7) K/uL Lymph # 0.8 (0.6-2.4) K/uL [place] # 0.6 (0.0-0.8) K/uL Eos # 0.2 (0.0-0.7) K/uL Baso # 0.0 (0.0-0.1) K/uL Nucleated RBC % 0.0 /100WBC Nucleated RBCs # 0 K/uL Sodium 138 (136-146) mmol/L Potassium 3.8 (3.5-5.1) mmol/L Chloride 108 (98-110) mmol/L Carbon Dioxide 24 (21-31) mmol/L BUN 20 (6.0-23.0) mg/dL Creatinine 0.7 (0.6-1.5) mg/dL Est Cr Clr Drug Dosing 70.65 mL/min Estimated GFR (MDRD) > 60.0 ml/min Glucose 77 (60-110) mg/dL Calcium 7.8 L (8.8-10.8) mg/dL [place] Results last 24 hrs: Microbiology 10/19/16 02:20 Gram Stain - Preliminary Sputum - Other Med Orders - Current: Current Medications Acetaminophen (Tylenol) 650 mg PO Q4H PRN PRN Reason: Pain (Mild 1-3)/fever Last Admin: 10/19/16 01:55 Dose: 650 mg Albuterol/Ipratropium (Duoneb 3.0-0.5 Mg/3 Ml) 3 ml NEB Q4HRRT PRN PRN Reason: Shortness of Breath Last Admin: 10/19/16 16:11 Dose: 3 ml Divalproex Sodium (Depakote Sprinkle) 250 mg PO BID [facility] Last Admin: 10/19/16 20:15 Dose: 250 mg Haloperidol Lactate (Haldol) 2 mg IM Q8H PRN PRN Reason: aggitation Last Admin: 10/19/16 18:54 Dose: 2 mg Levofloxacin/Dextrose 750 mg/ (Premix) 150 mls @ 100 mls/hr IV Q24H [facility] Last Admin: 10/20/16 00:17 Dose: 100 mls/hr Vancomycin HCl 1 gm/ Sodium (Chloride) 250 mls @ 166 mls/hr IV Q24H [facility] Last Admin: 10/20/16 02:35 Dose: 166 mls/hr Meropenem 1 gm/ Sodium (Chloride) 100 mls @ 200 mls/hr IV Q8H [facility] Last Admin: 10/19/16 23:33 Dose: 200 mls/hr Levetiracetam (Keppra) 500 mg PO BID [facility] Last Admin: 10/19/16 20:14 Dose: 500 mg Lorazepam (Ativan) 1 mg IVPUSH Q6H PRN PRN Reason: Agitation Last Admin: 10/19/16 21:19 Dose: 1 mg Melatonin (Melatonin) 9 mg PO BEDTIME [facility] Last Admin: 10/19/16 20:15 Dose: 9 mg Ondansetron HCl (Zofran) 4 mg IVPUSH Q4H PRN PRN Reason: Nausea Risperidone (Risperidal) 1 mg PO TID [facility] Last Admin: 10/20/16 07:20 Dose: Not Given Sodium Chloride (Saline Flush) 10 ml FLUSH ASDIRECTED PRN PRN Reason: Keep Vein Open Sodium Chloride (Saline Flush) 2.5 ml FLUSH ASDIRECTED PRN PRN Reason: Keep Vein Open Trazodone HCl (Trazodone) 50 mg PO TID [facility] Last Admin: 10/20/16 07:20 Dose: Not Given Vancomycin HCl (Pharmacy To Dose - Vancomycin) 1 dose .XX ASDIRECTED [facility] Discontinued Medications Acetaminophen (Tylenol) 325 mg RECTAL NOW ONE Stop: 10/18/16 20:43 Last Admin: 10/18/16 21:34 Dose: 325 mg Sodium Chloride (Normal Saline) 1,000 mls @ 999 mls/hr IV STAT ONE Stop: 10/18/16 21:42 Last Admin: 10/18/16 21:33 Dose: 999 mls/hr Aztreonam 1,000 mg/ Sodium (Chloride) 50 mls @ 100 mls/hr IV Q8HR [facility] Last Admin: 10/18/16 23:53 Dose: Not Given Levofloxacin/Dextrose 750 mg/ (Premix) 150 mls @ 100 mls/hr IV ONETIME ONE Stop: 10/18/16 23:33 Last Admin: 10/18/16 23:54 Dose: Not Given Vancomycin HCl 1 gm/ Sodium (Chloride) 250 mls @ 250 mls/hr IV ONETIME ONE Stop: 10/18/16 23:04 Last Admin: 10/18/16 22:27 Dose: 250 mls/hr Cefepime HCl 2 gm/ Premix 50 mls @ 100 mls/hr IV Q8H [facility] Last Admin: 10/18/16 23:55 Dose: 100 mls/hr Sodium Chloride (Normal Saline) 1,000 mls @ 999 mls/hr IV STAT ONE Stop: 10/18/16 23:35 Last Admin: 10/18/16 22:38 Dose: 999 mls/hr Levofloxacin/Dextrose 750 mg/ (Premix) 150 mls @ 100 mls/hr IV ONETIME ONE Stop: 10/19/16 01:29 Last Admin: 10/19/16 00:30 Dose: 100 mls/hr Meropenem 1 gm/ Sodium (Chloride) 100 mls @ 200 mls/hr IV Q8H [facility] Last Admin: 10/19/16 01:35 Dose: 200 mls/hr Vancomycin HCl 1 gm/ Sodium (Chloride) 250 mls @ 166 mls/hr IV ONETIME ONE Stop: 10/19/16 03:30 Last Admin: 10/19/16 01:55 Dose: 166 mls/hr Vancomycin HCl 1 gm/ Sodium (Chloride) 250 mls @ 166 mls/hr IV ONETIME ONE Stop: 10/20/16 04:30 Lorazepam (Ativan) 0.5 mg IVPUSH ONETIME ONE Stop: 10/18/16 21:26 Last Admin: 10/18/16 21:33 Dose: 0.5 mg - Exam Quality Assessment: supplemental oxygen (wean as possible), DVT prophylaxis General: no acute distress Neck: supple Lungs: Clear to auscultation, Normal respiratory effort Cardiovascular: Regular Rate, Regular Rhythm, No Murmurs Abdomen: bowel sounds present, soft, no tenderness, no distension Extremities: no edema, normal pulses Neurological: no new focal deficit - Problem List & Annotations (1) Hematuria SNOMED Code(s): 99040915 Code(s): R31.9 - HEMATURIA, UNSPECIFIED Status: Acute Current Visit: No (2) Pneumonia SNOMED Code(s): 375462809 Code(s): J18.9 - PNEUMONIA, UNSPECIFIED ORGANISM Status: Acute Priority: High Current Visit: No Qualifiers: Pneumonia type: due to unspecified organism Laterality: left Lung location: lower lobe of lung Qualified Code(s): J18.1 - Lobar pneumonia, unspecified organism (3) UTI (urinary tract infection) SNOMED Code(s): 96340900 Code(s): N39.0 - URINARY TRACT INFECTION, SITE NOT SPECIFIED Status: Acute Current Visit: No Qualifiers: Urinary tract infection type: site unspecified Hematuria presence: with hematuria Qualified Code(s): N39.0 - Urinary tract infection, site not specified; R31.9 - Hematuria, unspecified (4) COPD (chronic obstructive pulmonary disease) SNOMED Code(s): 64575932 Code(s): J44.9 - CHRONIC OBSTRUCTIVE PULMONARY DISEASE, UNSPECIFIED Status : Chronic Current Visit: No Qualifiers: COPD type: COPD with acute lower respiratory infection Qualified Code(s): J44.0 - Chronic obstructive pulmonary disease with acute lower respiratory infection (5) HLD (hyperlipidemia) SNOMED Code(s): 67711076 Code(s): E78.5 - HYPERLIPIDEMIA, UNSPECIFIED Status: Chronic Current Visit: No Qualifiers: Hyperlipidemia type: Pure hypercholesterolemia (6) HTN (hypertension) SNOMED Code(s): 65744235 Code(s): I10 - ESSENTIAL (PRIMARY) HYPERTENSION Status: Chronic Current Visit: No Qualifiers: Hypertension type: essential hypertension Qualified Code(s): I10 - Essential (primary) hypertension (7) Hypothyroidism SNOMED Code(s): 47143596 Code(s): E03.9 - HYPOTHYROIDISM, UNSPECIFIED Status: Chronic Current Visit: No Qualifiers: Hypothyroidism type: unspecified Qualified Code(s): E03.9 - Hypothyroidism , unspecified (8) Alzheimer's dementia SNOMED Code(s): 85580362 Code(s): G30.9 - ALZHEIMER'S DISEASE, UNSPECIFIED Status: Chronic Current Visit: No Qualifiers: Alzheimer's disease onset: unspecified onset Dementia behavioral disturbance: with behavioral disturbance Qualified Code(s): G30.8 - Other Alzheimer's disease; F02.81 - Dementia in other diseases classified elsewhere with behavioral disturbance - Problem List Review Problem List Initiated/Reviewed/Updated: Yes - Plan Plan:: 86 yo male admitted for pneumonia and UTI. 1. Pneumonia: Continue Meropenem. Blood cultures neg x 1 day. Sputum culture pending. Continue Oxygen as needed to keep sats >88%. 2. UTI: Hx of ESBL E coli. Treating with Meropenem. Cultures pending. Nursing reports no further hematuria. 3. Hx Alzheimers dementia: Haldol for agitation. Continue Risperidone and Aricept. Due to over sedation, will discontinue Ativan. 4. HTN: Restarted Telmisartan. Hold Lasix for now. Monitor VTE: SCDs Dispo: 2-3 days pending cultures.
[2016-10-20] MEDS: Meropenem 1 GM in Sodium Chloride 0.9% 100 ML IV SCH ×3 (08:38→23:51)
[2016-10-20] MEDS: Mineral Oil/Petrolatum Ophth Oint 3.5 GM Tube EYEBOTH SCH ×2 (09:48→20:59)
[2016-10-20] MEDS: Dorzolamide 2% Ophth Soln 10 ML Bottle EYEBOTH SCH ×2 (09:49→21:00)
[2016-10-20] MEDS: Divalproex Sodium Delayed-Release 125 MG Cap.Sprink PO SCH ×3 (09:50→21:01)
[2016-10-20] MEDS: levETIRAcetam 500 MG Tab PO SCH ×3 (09:50→21:02)
[2016-10-20] MEDS: Albuterol/Ipratropium 3.0-0.5 MG/3 ML Neb Soln NEB PRN (10:01)
[2016-10-20] MEDS: SYSTANE EYELF SCH ×2 (12:00→18:51)
[2016-10-20] MEDS: EYE EYELF SCH ×2 (12:00→18:51)
--- NOTE | 2016-10-20 17:58 | CR ---
EXAM DATE: 10/18/16 PATIENT'S AGE: 86 Patient: ANTIONE SAHU Facility: [place], [place] Site . Site : [id number] Study: XRay Chest [id number]/18/2017 10:06:41 PM Ordering Physician: Doctor Barfield Final Report: INDICATION: Shortness of breath. TECHNIQUE: AP portable upright chest. COMPARISON: September 25, 2016. FINDINGS: Stable mildly enlarged heart. Diffuse atherosclerotic changes seen throughout the ectatic thoracic aorta. Stable upper mediastinal prominence likely related to vascular ectasia. Pulmonary vasculature is unremarkable. Specifically, no evidence of overt edema. There is relatively stable left basilar atelectasis versus scarring. No new airspace opacities are seen to suggest pneumonia. Trace left pleural effusion versus scarring. No pneumothorax. IMPRESSION: No acute findings. See above. Dictated by Derrick Jacobs MD @ 10/18/2016 10:38:56 PM Dictated by: Derrick Jacobs MD @ 10/18/2016 22:39:04 (Electronic Signature) Report Signed by Proxy and Original Signed Document filed in the Medical Record. [facility]
[2016-10-20] MEDS: Furosemide 20 MG Tab PO SCH (19:50)
[2016-10-20] MEDS: Melatonin 3 MG Tab PO SCH (20:53)
[2016-10-20] MEDS: Donepezil 5 MG Tab PO SCH (20:54)
[2016-10-21] MEDS: SYSTANE EYELF SCH ×4 (00:36→18:18)
[2016-10-21] MEDS: EYE EYELF SCH ×4 (00:36→18:18)
[2016-10-21 05:31] LABS: CHLORIDE,CL 104 mmol/L (98-110); SODIUM,NA 138 mmol/L (136-146)
[2016-10-21] MEDS: traZODone 50 MG Tab PO SCH ×3 (06:38→21:31)
[2016-10-21] MEDS: risperiDONE 1 MG Tab PO SCH ×3 (06:38→21:39)
[2016-10-21] MEDS: Levothyroxine 100 MCG Tab PO SCH (06:38)
[2016-10-21] MEDS: Meropenem 1 GM in Sodium Chloride 0.9% 100 ML IV SCH ×2 (07:25→16:47)
[2016-10-21] MEDS: Albuterol/Ipratropium 3.0-0.5 MG/3 ML Neb Soln NEB PRN (08:05)
--- NOTE | 2016-10-21 08:36 | PCM.PN ---
- General Info Date of Service: 10/21/16 Admission Dx/Problem (Free Text): Admission Diagnosis/Problem Admission Diagnosis/Problem Pneumonia Subjective Update: Sitting up in chair, just finished eating breakfast. He is alert and speaks to me. Reports no pain and no trouble breathing. Functional Status: Reports: pain controlled, tolerating diet, urinating - Patient Data Vitals - most recent: Last Vital Signs Temp 97.3 F 10/21/16 07:40 Pulse 93 10/21/16 07:40 Resp 20 10/21/16 07:40 BP 121/61 10/21/16 08:22 Pulse Ox 95 10/21/16 07:40 Weight - most recent: 84 kg I&O - last 24 hours: Intake & Output 10/20/16 10/21/16 10/21/16 22:59 06:59 14:59 Intake Total 220 210 100 Output Total 910 Balance -690 210 100 Lab Results last 24 hrs: Laboratory Results - last 24 hr 10/21/16 10/21/16 Range/Units 04:33 04:33 WBC 7.23 (4.0-11.0) K/uL RBC 3.08 L (4.50-5.90) M/uL Hgb 8.9 L (13.0-17.0) g/dL Hct 28.2 L (38.0-50.0) % MCV 91.6 (80.0-98.0) fL MCH 28.9 (27.0-32.0) pg MCHC 31.6 (31.0-37.0) g/dL RDW Std Deviation 47.1 (28.0-62.0) fl RDW Coeff of Rowdy 14 (11.0-15.0) % Plt Count 274 (150-400) K/uL MPV 10.00 (7.40-12.00) fL Neut % (Auto) 73.8 (48.0-80.0) % Lymph % (Auto) 15.1 L (16.0-40.0) % Mccreary % (Auto) 8.2 (0.0-15.0) % Eos % (Auto) 2.5 (0.0-7.0) % Baso % (Auto) 0.4 (0.0-1.5) % Neut # 5.3 (1.4-5.7) K/uL Lymph # 1.1 (0.6-2.4) K/uL Mccreary # 0.6 (0.0-0.8) K/uL Eos # 0.2 (0.0-0.7) K/uL Baso # 0.0 (0.0-0.1) K/uL Nucleated RBC % 0.0 /100WBC Nucleated RBCs # 0 K/uL Sodium 138 (136-146) mmol/L Potassium 3.9 (3.5-5.1) mmol/L Chloride 104 (98-110) mmol/L Carbon Dioxide 26 (21-31) mmol/L BUN 14 (6.0-23.0) mg/dL Creatinine 0.7 (0.6-1.5) mg/dL Est Cr Clr Drug Dosing 70.65 mL/min Estimated GFR (MDRD) > 60.0 ml/min Glucose 74 (60-110) mg/dL Calcium 8.2 L (8.8-10.8) mg/dL Hipolito Results last 24 hrs: Microbiology 10/19/16 00:44 Urine Culture - Preliminary Urine, Scherer Cath (Indwelling) 10/19/16 02:20 Gram Stain - Preliminary Sputum - Other Sputum Culture - Final Escherichia Coli Normal Respiratory Russell Med Orders - Current: Current Medications Acetaminophen (Tylenol) 650 mg PO Q4H PRN PRN Reason: Pain (Mild 1-3)/fever Last Admin: 10/19/16 01:55 Dose: 650 mg Albuterol/Ipratropium (Duoneb 3.0-0.5 Mg/3 Ml) 3 ml NEB Q4HRRT PRN PRN Reason: Shortness of Breath Last Admin: 10/21/16 08:05 Dose: 3 ml Divalproex Sodium (Depakote Sprinkle) 250 mg PO BID [facility] Last Admin: 10/20/16 21:01 Dose: Not Given Donepezil HCl (Aricept) 5 mg PO BEDTIME [facility] Last Admin: 10/20/16 20:54 Dose: 5 mg Dorzolamide HCl (Trusopt 2% Ophth Soln) 0 ml EYEBOTH BID [facility] Last Admin: 10/20/16 21:00 Dose: 1 drop Furosemide (Lasix) 20 mg PO DAILY [facility] Last Admin: 10/20/16 19:50 Dose: 20 mg Haloperidol Lactate (Haldol) 2 mg IM Q8H PRN PRN Reason: aggitation Last Admin: 10/19/16 18:54 Dose: 2 mg Meropenem 1 gm/ Sodium (Chloride) 100 mls @ 200 mls/hr IV Q8H [facility] Last Admin: 10/21/16 07:25 Dose: 200 mls/hr Levetiracetam (Keppra) 500 mg PO BID [facility] Last Admin: 10/20/16 21:02 Dose: Not Given Levothyroxine Sodium (Synthroid) 100 mcg PO ACBREAKFAST [facility] Last Admin: 10/21/16 06:38 Dose: 100 mcg Melatonin (Melatonin) 9 mg PO BEDTIME [facility] Last Admin: 10/20/16 20:53 Dose: 9 mg Mineral Oil/White Petrolatum (Lacri-Lube S.O.P Oint) 0 gm EYEBOTH BID [facility] Last Admin: 10/20/16 20:59 Dose: 1 applic Ondansetron HCl (Zofran) 4 mg IVPUSH Q4H PRN PRN Reason: Nausea Systane 0.3-0.4% Eye (Drops 1 Drop) 1 each EYELF QID [facility] Last Admin: 10/21/16 06:39 Dose: Not Given Risperidone (Risperidal) 1 mg PO TID [facility] Last Admin: 10/21/16 06:38 Dose: 1 mg Sodium Chloride (Saline Flush) 10 ml FLUSH ASDIRECTED PRN PRN Reason: Keep Vein Open Sodium Chloride (Saline Flush) 2.5 ml FLUSH ASDIRECTED PRN PRN Reason: Keep Vein Open Telmisartan (Micardis) 20 mg PO BID [facility] Last Admin: 10/20/16 20:54 Dose: 20 mg Trazodone HCl (Trazodone) 50 mg PO TID [facility] Last Admin: 10/21/16 06:38 Dose: 50 mg Discontinued Medications Acetaminophen (Tylenol) 325 mg RECTAL NOW ONE Stop: 10/18/16 20:43 Last Admin: 10/18/16 21:34 Dose: 325 mg Sodium Chloride (Normal Saline) 1,000 mls @ 999 mls/hr IV STAT ONE Stop: 10/18/16 21:42 Last Admin: 10/18/16 21:33 Dose: 999 mls/hr Aztreonam 1,000 mg/ Sodium (Chloride) 50 mls @ 100 mls/hr IV Q8HR [facility] Last Admin: 10/18/16 23:53 Dose: Not Given Levofloxacin/Dextrose 750 mg/ (Premix) 150 mls @ 100 mls/hr IV ONETIME ONE Stop: 10/18/16 23:33 Last Admin: 10/18/16 23:54 Dose: Not Given Vancomycin HCl 1 gm/ Sodium (Chloride) 250 mls @ 250 mls/hr IV ONETIME ONE Stop: 10/18/16 23:04 Last Admin: 10/18/16 22:27 Dose: 250 mls/hr Cefepime HCl 2 gm/ Premix 50 mls @ 100 mls/hr IV Q8H [facility] Last Admin: 10/18/16 23:55 Dose: 100 mls/hr Sodium Chloride (Normal Saline) 1,000 mls @ 999 mls/hr IV STAT ONE Stop: 10/18/16 23:35 Last Admin: 10/18/16 22:38 Dose: 999 mls/hr Levofloxacin/Dextrose 750 mg/ (Premix) 150 mls @ 100 mls/hr IV ONETIME ONE Stop: 10/19/16 01:29 Last Admin: 10/19/16 00:30 Dose: 100 mls/hr Meropenem 1 gm/ Sodium (Chloride) 100 mls @ 200 mls/hr IV Q8H [facility] Last Admin: 10/19/16 01:35 Dose: 200 mls/hr Levofloxacin/Dextrose 750 mg/ (Premix) 150 mls @ 100 mls/hr IV Q24H [facility] Last Admin: 10/20/16 00:17 Dose: 100 mls/hr Vancomycin HCl 1 gm/ Sodium (Chloride) 250 mls @ 166 mls/hr IV ONETIME ONE Stop: 10/19/16 03:30 Last Admin: 10/19/16 01:55 Dose: 166 mls/hr Vancomycin HCl 1 gm/ Sodium (Chloride) 250 mls @ 166 mls/hr IV ONETIME ONE Stop: 10/20/16 04:30 Vancomycin HCl 1 gm/ Sodium (Chloride) 250 mls @ 166 mls/hr IV Q24H [facility] Last Admin: 10/20/16 02:35 Dose: 166 mls/hr Lorazepam (Ativan) 0.5 mg IVPUSH ONETIME ONE Stop: 10/18/16 21:26 Last Admin: 10/18/16 21:33 Dose: 0.5 mg Lorazepam (Ativan) 1 mg IVPUSH Q6H PRN PRN Reason: Agitation Last Admin: 10/19/16 21:19 Dose: 1 mg Vancomycin HCl (Pharmacy To Dose - Vancomycin) 1 dose .XX ASDIRECTED GAIL - Exam Quality Assessment: supplemental oxygen, DVT prophylaxis (SCDs only due to hematuria). No: urine catheter General: alert, cooperative, no acute distress Neck: supple Lungs: Clear to auscultation, Normal respiratory effort Cardiovascular: Regular Rate, Regular Rhythm, No Murmurs Abdomen: bowel sounds present, soft, no tenderness, no distension Extremities: normal pulses, no tenderness/swelling, edema (trace edema bilaterally) Neurological: no new focal deficit Psy/Mental Status: alert, normal affect, normal mood - Problem List & Annotations (1) Hematuria SNOMED Code(s): 45887271 Code(s): R31.9 - HEMATURIA, UNSPECIFIED Status: Acute Current Visit: No (2) Pneumonia SNOMED Code(s): 263963448 Code(s): J18.9 - PNEUMONIA, UNSPECIFIED ORGANISM Status: Acute Priority: High Current Visit: No Qualifiers: Pneumonia type: due to unspecified organism Laterality: left Lung location: lower lobe of lung Qualified Code(s): J18.1 - Lobar pneumonia, unspecified organism (3) UTI (urinary tract infection) SNOMED Code(s): 79410570 Code(s): N39.0 - URINARY TRACT INFECTION, SITE NOT SPECIFIED Status: Acute Current Visit: No Qualifiers: Urinary tract infection type: site unspecified Hematuria presence: with hematuria Qualified Code(s): N39.0 - Urinary tract infection, site not specified; R31.9 - Hematuria, unspecified (4) COPD (chronic obstructive pulmonary disease) SNOMED Code(s): 61778290 Code(s): J44.9 - CHRONIC OBSTRUCTIVE PULMONARY DISEASE, UNSPECIFIED Status : Chronic Current Visit: No Qualifiers: COPD type: COPD with acute lower respiratory infection Qualified Code(s): J44.0 - Chronic obstructive pulmonary disease with acute lower respiratory infection (5) HLD (hyperlipidemia) SNOMED Code(s): 05756174 Code(s): E78.5 - HYPERLIPIDEMIA, UNSPECIFIED Status: Chronic Current Visit: No Qualifiers: Hyperlipidemia type: Pure hypercholesterolemia (6) HTN (hypertension) SNOMED Code(s): 89149987 Code(s): I10 - ESSENTIAL (PRIMARY) HYPERTENSION Status: Chronic Current Visit: No Qualifiers: Hypertension type: essential hypertension Qualified Code(s): I10 - Essential (primary) hypertension (7) Hypothyroidism SNOMED Code(s): 27367791 Code(s): E03.9 - HYPOTHYROIDISM, UNSPECIFIED Status: Chronic Current Visit: No Qualifiers: Hypothyroidism type: unspecified Qualified Code(s): E03.9 - Hypothyroidism , unspecified (8) Alzheimer's dementia SNOMED Code(s): 13266379 Code(s): G30.9 - ALZHEIMER'S DISEASE, UNSPECIFIED Status: Chronic Current Visit: No Qualifiers: Alzheimer's disease onset: unspecified onset Dementia behavioral disturbance: with behavioral disturbance Qualified Code(s): G30.8 - Other Alzheimer's disease; F02.81 - Dementia in other diseases classified elsewhere with behavioral disturbance - Problem List Review Problem List Initiated/Reviewed/Updated: Yes - My Orders Last 24 Hours: My Active Orders 10/20/16 09:00 Dorzolamide [Trusopt 2% Ophth Soln] 0 ml EYEBOTH BID Mineral Oil/Petrolatum Oint [Lacri-Lube S.O.P Oint] 0 gm EYEBOTH BID Telmisartan [Micardis] 20 mg PO BID 10/20/16 12:00 Patient's Own Medication [Ptom] 1 each EYELF QID 10/20/16 17:00 Furosemide [Lasix] 20 mg PO DAILY 10/20/16 21:00 Donepezil [Aricept] 5 mg PO BEDTIME 10/21/16 07:30 Levothyroxine [Synthroid] 100 mcg PO ACBREAKFAST - Plan Plan:: 86 yo male admitted for pneumonia and UTI. 1. Pneumonia: Continue Meropenem. Blood cultures neg x 2 day. Sputum culture returned with ESBL E Coli and Norm respiratory russell, sensitive to Meropenem. Continue Oxygen as needed to keep sats >88%. 2. UTI: Hx of ESBL E coli. Treating with Meropenem. Cultures preliminarily report E coli >100,000, HIPOLITO to follow. Nursing reports no further hematuria. Hgb this am 8.9 3. Hx Alzheimers dementia: Haldol for agitation. Continue Risperidone and Aricept. 4. HTN: Continue Telmisartan and Lasix. Monitor VTE: SCDs Dispo: 1-2 days pending cultures.
[2016-10-21] MEDS: levETIRAcetam 500 MG Tab PO SCH ×2 (09:50→21:31)
[2016-10-21] MEDS: Furosemide 20 MG Tab PO SCH (09:50)
[2016-10-21] MEDS: Divalproex Sodium Delayed-Release 125 MG Cap.Sprink PO SCH ×2 (09:50→21:28)
[2016-10-21] MEDS: Mineral Oil/Petrolatum Ophth Oint 3.5 GM Tube EYEBOTH SCH ×2 (09:51→21:31)
[2016-10-21] MEDS: Dorzolamide 2% Ophth Soln 10 ML Bottle EYEBOTH SCH ×2 (09:57→21:32)
[2016-10-21] MEDS: Donepezil 5 MG Tab PO SCH (21:26)
[2016-10-21] MEDS: Melatonin 3 MG Tab PO SCH (21:27)
[2016-10-22] MEDS: SYSTANE EYELF SCH ×3 (00:09→11:46)
[2016-10-22] MEDS: EYE EYELF SCH ×3 (00:09→11:46)
[2016-10-22] MEDS: Meropenem 1 GM in Sodium Chloride 0.9% 100 ML IV SCH ×2 (00:10→08:08)
[2016-10-22 05:32] LABS: CHLORIDE,CL 104 mmol/L (98-110); SODIUM,NA 138 mmol/L (136-146)
[2016-10-22] MEDS: Levothyroxine 100 MCG Tab PO SCH (06:32)
[2016-10-22] MEDS: traZODone 50 MG Tab PO SCH (06:33)
[2016-10-22] MEDS: risperiDONE 1 MG Tab PO SCH (06:33)
[2016-10-22] MEDS: Divalproex Sodium Delayed-Release 125 MG Cap.Sprink PO SCH (08:14)
[2016-10-22] MEDS: levETIRAcetam 500 MG Tab PO SCH (08:14)
[2016-10-22] MEDS: Furosemide 20 MG Tab PO SCH (08:14)
[2016-10-22] MEDS: Mineral Oil/Petrolatum Ophth Oint 3.5 GM Tube EYEBOTH SCH (08:19)
[2016-10-22] MEDS: Dorzolamide 2% Ophth Soln 10 ML Bottle EYEBOTH SCH (08:20)
--- NOTE | 2016-10-22 11:57 | PCM.DCSUM1 ---
Discharge Summary - Hospital Course Brief History: This 86 year old male resident of [place] with pmh of dementia, ESBL ecoli and recurrent gross hematuria who presented with lethargy, tachypnea and chest congestion on 10/18/2016. In the ED WBC 10,340, hgb 10.1, BUN 32, Cr 1.1, UA revealed +1 bacteria, +nitrites, WBC 44-50 Lrg blood, and small leukocyte esterase. CXR negative for infiltrates, trace L pleural effusion vs scarring. He was admitted for suspected pneumonia, and UTI. - Discharge Data Discharge Date: 10/22/16 Discharge Disposition: DC/Tfer to SNF 03 Condition: Good - Discharge Diagnosis/Problem(s) (1) History of ESBL E. coli infection SNOMED Code(s): 673153720 ICD Code: Z86.19 - PERSONAL HISTORY OF OTHER INFECTIOUS AND PARASITIC DISEASES Status: Acute Current Visit: Yes (2) Pneumonia SNOMED Code(s): 341134957 ICD Code: J18.9 - PNEUMONIA, UNSPECIFIED ORGANISM Status: Acute Priority : High Current Visit: No Qualifiers: Pneumonia type: due to unspecified organism Laterality: left Lung location: lower lobe of lung Qualified Code(s): J18.1 - Lobar pneumonia, unspecified organism (3) UTI (urinary tract infection) SNOMED Code(s): 29441951 ICD Code: N39.0 - URINARY TRACT INFECTION, SITE NOT SPECIFIED Status: Acute Current Visit: No Qualifiers: Urinary tract infection type: site unspecified Hematuria presence: with hematuria Qualified Code(s): N39.0 - Urinary tract infection, site not specified; R31.9 - Hematuria, unspecified (4) Hematuria SNOMED Code(s): 87806103 ICD Code: R31.9 - HEMATURIA, UNSPECIFIED Status: Resolved Current Visit: No (5) COPD (chronic obstructive pulmonary disease) SNOMED Code(s): 95644436 ICD Code: J44.9 - CHRONIC OBSTRUCTIVE PULMONARY DISEASE, UNSPECIFIED Status : Chronic Current Visit: No Qualifiers: COPD type: COPD with acute lower respiratory infection Qualified Code(s): J44.0 - Chronic obstructive pulmonary disease with acute lower respiratory infection (6) HLD (hyperlipidemia) SNOMED Code(s): 06666159 ICD Code: E78.5 - HYPERLIPIDEMIA, UNSPECIFIED Status: Chronic Current Visit: No Qualifiers: Hyperlipidemia type: Pure hypercholesterolemia (7) HTN (hypertension) SNOMED Code(s): 05655103 ICD Code: I10 - ESSENTIAL (PRIMARY) HYPERTENSION Status: Chronic Current Visit: No Qualifiers: Hypertension type: essential hypertension Qualified Code(s): I10 - Essential (primary) hypertension (8) Hypothyroidism SNOMED Code(s): 19730845 ICD Code: E03.9 - HYPOTHYROIDISM, UNSPECIFIED Status: Chronic Current Visit: No Qualifiers: Hypothyroidism type: unspecified Qualified Code(s): E03.9 - Hypothyroidism , unspecified (9) Alzheimer's dementia SNOMED Code(s): 78459928 ICD Code: G30.9 - ALZHEIMER'S DISEASE, UNSPECIFIED Status: Chronic Current Visit: No Qualifiers: Alzheimer's disease onset: unspecified onset Dementia behavioral disturbance: with behavioral disturbance Qualified Code(s): G30.8 - Other Alzheimer's disease; F02.81 - Dementia in other diseases classified elsewhere with behavioral disturbance - Patient Instructions Diet: Mechanical Soft ([place] thick liquids) Activity: As Tolerated Showering/Bathing: May Shower Notify Provider of: Fever, Increased Pain, Swelling and Redness, Drainage, Nausea and/or Vomiting - Discharge Plan Prescriptions/Med Rec: Ertapenem [INVanz] 1 gm IM DAILY #6 vial traZODone HCl [Trazodone HCl] 50 mg PO TID #20 tablet Home Medications: Home Meds Acetaminophen [Tylenol Extra Strength] 1,000 mg PO Q6H PRN 06/09/15 [History] Docusate Sodium 100 mg PO BID 06/09/15 [History] Magnesium Hydroxide [Milk of Magnesia] 30 ml PO DAILY PRN 06/09/15 [History] Multivitamin with Minerals [Multivitamins with Minerals] 1 each PO DAILY [History] Polyethylene Glycol 3350 [MiraLAX] 17 gm PO Q48H 06/09/15 [History] Propylene Glycol/Peg 400 [Systane 0.3-0.4% Eye Drops] 1 drop EYELF QID 06/09/15 [History] risperiDONE [Risperdal] 1 mg PO TID 06/09/15 [History] Calcium Citrate/Vitamin D3 [Calcium Cit-Vit D 315-200] 1 each PO DAILY 12/19/15 [History] Dorzolamide [Trusopt 2% Ophth Soln] 1 drop EYEBOTH BID 12/19/15 [History] Furosemide [Lasix] 20 mg PO DAILY 12/19/15 [History] Ibuprofen [Motrin] 400 mg PO Q6H PRN 12/19/15 [History] Levothyroxine [Synthroid] 100 mcg PO ACBREAKFAST 12/19/15 [History] Melatonin 9 mg PO BEDTIME 12/19/15 [History] Telmisartan 20 mg PO BID 12/19/15 [History] levETIRAcetam [Keppra] 500 mg PO BID 12/19/15 [History] Donepezil [Aricept] 5 mg PO BEDTIME 06/11/16 [History] atorvaSTATin [Lipitor] 10 mg PO BEDTIME 06/11/16 [History] Mineral Oil/Petrolatum,White [Artificial Tears Eye Ointment] 1 applic EYEBOTH BID 06/12/16 [History] Potassium Chloride [Klor-Con] 10 meq PO DAILY 06/12/16 [History] Aspirin [Ecotrin] 81 mg PO DAILY 09/25/16 [History] Atropine 1% [Isopto Atropine 1% Ophth Soln] 2 drop SL Q1H PRN 09/25/16 [History] Bisacodyl [Dulcolax] 10 mg RC Q24H PRN 09/25/16 [History] Dextromethorphan Polistirex [Delsym] 10 ml PO Q12H PRN 09/25/16 [History] Divalproex Sodium [Depakote Sprinkle] 250 mg PO BID 09/25/16 [History] Albuterol/Ipratropium [DuoNeb 3.0-0.5 MG/3 ML] 3 ml IH Q6H PRN 10/20/16 [History ] Levalbuterol HCl [Levalbuterol Concentrate] 1.25 mg IH Q6H PRN 10/20/16 [History ] Ertapenem [INVanz] 1 gm IM DAILY #6 vial 10/22/16 [Rx] traZODone HCl [Trazodone HCl] 50 mg PO TID #20 tablet 10/22/16 [Rx] Patient Handouts: Ertapenem injection, Urinary Tract Infection, Adult, Easy-to- Read Referrals: [facility] [Outside] [facility] [Outside] Ezra Casper MD [Primary Care Provider] - 10/27/16 (On his next [place] rounds.) - Discharge Summary/Plan Comment DC Time >30 min.: No Discharge Summary/Plan Comment: Discharge diagnoses: Pneumonia: ESBL e.coli Complicated UTI: ESBLE e. coli Dementia HTN COPD Alfonso was admitted and treated with broad spectrum antibiotics including Vancomycin, Levaquin and Meropenem due to hx of ESBL E. Coli UTIs. Cultures were obtained. BC have been negative for 3 days, sputum culture returned with ESBL E. coli. Antibiotics were de=escalated to Meropenem only. UC returned with ESBL E. coli as well. During stay Alfonso has continued to improve daily, today he is alert and conversational, not agitated. He remains afebrile, leukocytosis has improved, and he no longer has gross hematuria. He is sating 93% on RA, cough noted intermittently but he is able to clear. We will discharge him back to [place] today with Ertapenem 1 gm IM daily for 6 more days, total of 10 day course for complicated UTI and pneumonia. Due to Alzheimers and intermittent agitation, it would not be safe to place PICC line or leave IV in place for therapy. Dr. Nick and myself spoke with daughterMANNIE regarding treatment goals , at this time they would like to continue with current treatment plan and will discuss comfort measures/Hospice at a later date. No further medication changes made. He is to be seen by Dr Casper at next [place] rounds. Return to the ED or clinic if concerns should arise. - General Info Date of Service: 10/22/16 Admission Dx/Problem (Free Text: Admission Diagnosis/Problem Admission Diagnosis/Problem Pneumonia Subjective Update: Sitting up in chair, just finished eating breakfast. He is alert and speaks to me talks about watching the [place] girls on TV. Reports no pain and no trouble breathing. Functional Status: Reports: pain controlled, tolerating diet, urinating - Review of Systems General: Reports: No Symptoms. Denies: Fever Pulmonary: Reports: cough, sputum (intermittently per sitter in room). Denies: shortness of breath Cardiovascular: Denies: Chest Pain Gastrointestinal: Reports: No symptoms. Denies: Abdominal pain, Nausea, Vomiting - Patient Data Vitals - Most Recent: Last Vital Signs Temp 97.1 F 10/22/16 07:26 Pulse 88 10/22/16 07:26 Resp 20 10/22/16 07:26 BP 168/77 H 10/22/16 08:15 Pulse Ox 93 L 10/22/16 08:00 Weight - Most Recent: 84 kg I&O - Last 24 hours: Intake & Output 10/21/16 10/22/16 10/22/16 22:59 06:59 14:59 Intake Total 878 220 100 Balance 878 220 100 Lab Results - Last 24 hrs: Laboratory Results - last 24 hr 10/22/16 10/22/16 Range/Units 04:58 04:58 WBC 5.89 (4.0-11.0) K/uL RBC 3.38 L (4.50-5.90) M/uL Hgb 9.6 L (13.0-17.0) g/dL Hct 30.3 L (38.0-50.0) % MCV 89.6 (80.0-98.0) fL MCH 28.4 (27.0-32.0) pg MCHC 31.7 (31.0-37.0) g/dL RDW Std Deviation 45.7 (28.0-62.0) fl RDW Coeff of Rowdy 14 (11.0-15.0) % Plt Count 311 (150-400) K/uL MPV 9.80 (7.40-12.00) fL Neut % (Auto) 69.4 (48.0-80.0) % Lymph % (Auto) 17.3 (16.0-40.0) % [place] % (Auto) 10.2 (0.0-15.0) % Eos % (Auto) 2.9 (0.0-7.0) % Baso % (Auto) 0.2 (0.0-1.5) % Neut # 4.1 (1.4-5.7) K/uL Lymph # 1.0 (0.6-2.4) K/uL [place] # 0.6 (0.0-0.8) K/uL Eos # 0.2 (0.0-0.7) K/uL Baso # 0.0 (0.0-0.1) K/uL Nucleated RBC % 0.0 /100WBC Nucleated RBCs # 0 K/uL Sodium 138 (136-146) mmol/L Potassium 3.7 (3.5-5.1) mmol/L Chloride 104 (98-110) mmol/L Carbon Dioxide 25 (21-31) mmol/L BUN 14 (6.0-23.0) mg/dL Creatinine 0.7 (0.6-1.5) mg/dL Est Cr Clr Drug Dosing 70.65 mL/min Estimated GFR (MDRD) > 60.0 ml/min Glucose 90 (60-110) mg/dL Calcium 8.1 L (8.8-10.8) mg/dL HAKAN Results - Last 24 hrs: Microbiology 10/19/16 00:44 Urine Culture - Final Urine, Scherer Cath (Indwelling) Escherichia Coli 10/19/16 02:20 Gram Stain - Final Sputum - Other Sputum Culture - Final Escherichia Coli Normal Respiratory Felecia Med Orders - Current: Current Medications Acetaminophen (Tylenol) 650 mg PO Q4H PRN PRN Reason: Pain (Mild 1-3)/fever Last Admin: 10/19/16 01:55 Dose: 650 mg Albuterol/Ipratropium (Duoneb 3.0-0.5 Mg/3 Ml) 3 ml NEB Q4HRRT PRN PRN Reason: Shortness of Breath Last Admin: 10/21/16 08:05 Dose: 3 ml Divalproex Sodium (Depakote Sprinkle) 250 mg PO BID [facility] Last Admin: 10/22/16 08:14 Dose: 250 mg Donepezil HCl (Aricept) 5 mg PO BEDTIME [facility] Last Admin: 10/21/16 21:26 Dose: 5 mg Dorzolamide HCl (Trusopt 2% Ophth Soln) 0 ml EYEBOTH BID [facility] Last Admin: 10/22/16 08:20 Dose: 1 drop Furosemide (Lasix) 20 mg PO DAILY [facility] Last Admin: 10/22/16 08:14 Dose: 20 mg Haloperidol Lactate (Haldol) 2 mg IM Q8H PRN PRN Reason: aggitation Last Admin: 10/19/16 18:54 Dose: 2 mg Meropenem 1 gm/ Sodium (Chloride) 100 mls @ 200 mls/hr IV Q8H [facility] Last Admin: 10/22/16 08:08 Dose: 200 mls/hr Ertapenem 1 gm/ Sodium (Chloride) 50 mls @ 100 mls/hr IV Q24H ONE Stop: 10/22/16 12:29 Levetiracetam (Keppra) 500 mg PO BID [facility] Last Admin: 10/22/16 08:14 Dose: 500 mg Levothyroxine Sodium (Synthroid) 100 mcg PO ACBREAKFAST [facility] Last Admin: 10/22/16 06:32 Dose: 100 mcg Melatonin (Melatonin) 9 mg PO BEDTIME [facility] Last Admin: 10/21/16 21:27 Dose: 9 mg Mineral Oil/White Petrolatum (Lacri-Lube S.O.P Oint) 0 gm EYEBOTH BID [facility] Last Admin: 10/22/16 08:19 Dose: 1 applic Ondansetron HCl (Zofran) 4 mg IVPUSH Q4H PRN PRN Reason: Nausea Systane 0.3-0.4% Eye (Drops 1 Drop) 1 each EYELF QID [facility] Last Admin: 10/22/16 06:33 Dose: Not Given Risperidone (Risperidal) 1 mg PO TID [facility] Last Admin: 10/22/16 06:33 Dose: 1 mg Sodium Chloride (Saline Flush) 10 ml FLUSH ASDIRECTED PRN PRN Reason: Keep Vein Open Sodium Chloride (Saline Flush) 2.5 ml FLUSH ASDIRECTED PRN PRN Reason: Keep Vein Open Telmisartan (Micardis) 20 mg PO BID [facility] Last Admin: 10/22/16 08:15 Dose: 20 mg Trazodone HCl (Trazodone) 50 mg PO TID [facility] Last Admin: 10/22/16 06:33 Dose: 50 mg Discontinued Medications Acetaminophen (Tylenol) 325 mg RECTAL NOW ONE Stop: 10/18/16 20:43 Last Admin: 10/18/16 21:34 Dose: 325 mg Sodium Chloride (Normal Saline) 1,000 mls @ 999 mls/hr IV STAT ONE Stop: 10/18/16 21:42 Last Admin: 10/18/16 21:33 Dose: 999 mls/hr Aztreonam 1,000 mg/ Sodium (Chloride) 50 mls @ 100 mls/hr IV Q8HR [facility] Last Admin: 10/18/16 23:53 Dose: Not Given Levofloxacin/Dextrose 750 mg/ (Premix) 150 mls @ 100 mls/hr IV ONETIME ONE Stop: 10/18/16 23:33 Last Admin: 10/18/16 23:54 Dose: Not Given Vancomycin HCl 1 gm/ Sodium (Chloride) 250 mls @ 250 mls/hr IV ONETIME ONE Stop: 10/18/16 23:04 Last Admin: 10/18/16 22:27 Dose: 250 mls/hr Cefepime HCl 2 gm/ Premix 50 mls @ 100 mls/hr IV Q8H [facility] Last Admin: 10/18/16 23:55 Dose: 100 mls/hr Sodium Chloride (Normal Saline) 1,000 mls @ 999 mls/hr IV STAT ONE Stop: 10/18/16 23:35 Last Admin: 10/18/16 22:38 Dose: 999 mls/hr Levofloxacin/Dextrose 750 mg/ (Premix) 150 mls @ 100 mls/hr IV ONETIME ONE Stop: 10/19/16 01:29 Last Admin: 10/19/16 00:30 Dose: 100 mls/hr Meropenem 1 gm/ Sodium (Chloride) 100 mls @ 200 mls/hr IV Q8H [facility] Last Admin: 10/19/16 01:35 Dose: 200 mls/hr Levofloxacin/Dextrose 750 mg/ (Premix) 150 mls @ 100 mls/hr IV Q24H [facility] Last Admin: 10/20/16 00:17 Dose: 100 mls/hr Vancomycin HCl 1 gm/ Sodium (Chloride) 250 mls @ 166 mls/hr IV ONETIME ONE Stop: 10/19/16 03:30 Last Admin: 10/19/16 01:55 Dose: 166 mls/hr Vancomycin HCl 1 gm/ Sodium (Chloride) 250 mls @ 166 mls/hr IV ONETIME ONE Stop: 10/20/16 04:30 Vancomycin HCl 1 gm/ Sodium (Chloride) 250 mls @ 166 mls/hr IV Q24H [facility] Last Admin: 10/20/16 02:35 Dose: 166 mls/hr Lorazepam (Ativan) 0.5 mg IVPUSH ONETIME ONE Stop: 10/18/16 21:26 Last Admin: 10/18/16 21:33 Dose: 0.5 mg Lorazepam (Ativan) 1 mg IVPUSH Q6H PRN PRN Reason: Agitation Last Admin: 10/19/16 21:19 Dose: 1 mg Vancomycin HCl (Pharmacy To Dose - Vancomycin) 1 dose .XX ASDIRECTED GAIL - Exam Quality Assessment: Reports: DVT prophylaxis. Denies: supplemental oxygen General: Reports: alert, cooperative Neck: Reports: supple Lungs: Reports: Normal respiratory effort, Wheezing (intermittent expiratory) Cardiovascular: Reports: Regular Rate, Regular Rhythm, No Murmurs Abdomen: Reports: bowel sounds present, soft, no tenderness, no distension Extremities: Reports: no edema, normal pulses Neurological: Reports: no new focal deficit Psy/Mental Status: Reports: alert, normal affect, normal mood *Q Meaningful Use (DIS) - VTE *Q VTE Criteria *Q: VTE Anticoagulation Contraindications: Medical/procedure contrai - Stroke *Q Stroke Criteria *Q: - AMI *Q AMI Criteria *Q:
[2016-10-22] MEDS ORDERED: Ertapenem 1 GM in Sodium Chloride 0.9% 50 ML IV ONE (12:00)
[2016-10-22 12:06] VITALS: BP 154/84
== END 2016-10-22 13:15 | DRG 190 ==
LOC: MW.ED 20:20 → MW.MS 22:06
PROVIDERS: ADMIT Internal Medicine; ATTEND Internal Medicine
DX: J18.1 Lobar pneumonia, unspecified organism (principal); J44.0 Chronic obstructive pulmonary disease with (acute) lower respiratory infection; J15.5 Pneumonia due to Escherichia coli; N39.0 Urinary tract infection, site not specified; E78.00 Pure hypercholesterolemia, unspecified; B96.20 Unspecified Escherichia coli [E. coli] as the cause of diseases classified elsewhere; J44.9 Chronic obstructive pulmonary disease, unspecified; R31.9 Hematuria, unspecified; E78.5 Hyperlipidemia, unspecified; I10 Essential (primary) hypertension; E03.9 Hypothyroidism, unspecified; G30.9 Alzheimer's disease, unspecified; F02.80 Dementia in other diseases classified elsewhere, unspecified severity, without behavioral disturbance, psychotic disturbance, mood disturbance, and anxiety; R53.1 Weakness; Z79.82 Long term (current) use of aspirin; Z88.0 Allergy status to penicillin; Z79.899 Other long term (current) drug therapy
CPT/HCPCS: 71010; 80053; 81001; 83605; 85025; 87040 ×2; 93005; 96361; 96375; 99284; A9270; J2060; J7040; 36415; 80048; 84484; 87070; 87077; 87086; 87088; 87186; 87205; 94640; 96365; 96374; 99285; J0692; J1335; J1630; J1956; J2185; J3370; J7030; J7050

== ENCOUNTER 2016-12-10 14:52 | Inpatient (IN) | payer MEDICARE, OTHER ==
[2016-12-10] MEDS ORDERED: Sodium Chloride 0.9% 2.5 ML Syringe FLUSH PRN (15:11)
[2016-12-10] MEDS ORDERED: Sodium Chloride 0.9% 10 ML Syringe FLUSH PRN (15:11)
[2016-12-10] MEDS ORDERED: Sodium Chloride 0.9% 500 ML IV ONE (15:12)
[2016-12-10] MEDS ORDERED: Albuterol/Ipratropium 3.0-0.5 MG/3 ML Neb Soln NEB ONE (15:13)
--- NOTE | 2016-12-10 15:53 | CR ---
EXAMINATION: Portable chest radiograph. HISTORY: Shortness of breath. FINDINGS: The trachea is midline. The heart is borderline in size. There is increased atelectasis and/or infil trate within the left lung base. A small pleural effusion is not excluded. There is also mild infilt rate within the right lung base. Aortic calcifications are present. Left humerus placement hardware noted. IMPRESSION: Bibasilar infiltrates and/or atelectasis, left greater than right. A trace left pleural effusion is not excluded.
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
[2016-12-10] MEDS ORDERED: Levofloxacin/Dextrose 5%-Water 500 MG in Premix Bag 1 BAG IV ONE (17:01)
[2016-12-10] MEDS ORDERED: Magnesium Hydroxide 400 MG/5 ML Susp 30 ML Cup PO PRN (19:25)
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
[2016-12-10] MEDS ORDERED: MIN OIL EYEBOTH SCH (21:00)
[2016-12-10] MEDS ORDERED: PETROLATUM EYEBOTH SCH (21:00)
[2016-12-10] MEDS ORDERED: LANOLIN EYEBOTH SCH (21:00)
[2016-12-10] MEDS ORDERED: Cefepime 1 GM in Premix Bag 1 BAG IV SCH (22:00)
[2016-12-10] MEDS: atorvaSTATin 10 MG Tab PO SCH (22:20)
[2016-12-10] MEDS: Docusate Sodium 100 MG Cap PO SCH (22:20)
[2016-12-10] MEDS: Divalproex Sodium Delayed-Release 125 MG Cap.Sprink PO SCH (22:20)
[2016-12-10] MEDS: levETIRAcetam 500 MG Tab PO SCH (22:20)
[2016-12-10] MEDS: Donepezil 5 MG Tab PO SCH (22:20)
[2016-12-10] MEDS: risperiDONE 1 MG Tab PO SCH (22:21)
[2016-12-10] MEDS: Melatonin 3 MG Tab PO SCH (22:21)
[2016-12-10] MEDS: Dorzolamide 2% Ophth Soln 10 ML Bottle EYEBOTH SCH (22:42)
[2016-12-10] MEDS: Cefepime 1 GM in Premix Bag 1 BAG IV SCH (23:00)
[2016-12-11] MEDS: Albuterol/Ipratropium 3.0-0.5 MG/3 ML Neb Soln NEB SCH ×5 (04:18→23:23)
[2016-12-11] MEDS: risperiDONE 1 MG Tab PO SCH ×3 (05:31→21:14)
[2016-12-11] MEDS: Levothyroxine 100 MCG Tab PO SCH (06:44)
[2016-12-11] MEDS: levETIRAcetam 500 MG Tab PO SCH ×2 (08:58→21:13)
[2016-12-11] MEDS: Polyethylene Glycol 3350 Powder 17 GM Packet PO SCH (08:58)
[2016-12-11] MEDS: Docusate Sodium 100 MG Cap PO SCH ×2 (08:58→21:13)
[2016-12-11] MEDS: Multivitamins with Iron/Calcium/Folic Acid/Minerals Tab PO SCH (08:59)
[2016-12-11] MEDS: Aspirin 81 MG Tab.EC PO SCH (08:59)
[2016-12-11] MEDS: Divalproex Sodium Delayed-Release 125 MG Cap.Sprink PO SCH ×2 (08:59→21:13)
[2016-12-11] MEDS: Dorzolamide 2% Ophth Soln 10 ML Bottle EYEBOTH SCH ×2 (09:39→21:21)
[2016-12-11] MEDS: Calcium Citrate/Vitamin D3 Tablet PO SCH (09:41)
[2016-12-11] MEDS: Cefepime 1 GM in Premix Bag 1 BAG IV SCH ×2 (10:53→22:19)
--- NOTE | 2016-12-11 13:33 | PCM.PN ---
- General Info Date of Service: 12/11/16 - Review of Systems Neurological: Reports: Confusion Systems Review Comment:: He is sitting in a chair in NAD - Patient Data Vitals - most recent: Last Vital Signs Temp 99.1 F 12/11/16 12:00 Pulse 108 H 12/11/16 12:00 Resp 28 H 12/11/16 12:00 BP 92/50 L 12/11/16 12:00 Pulse Ox 91 L 12/11/16 12:00 Weight - most recent: 83 kg I&O - last 24 hours: Intake & Output 12/10/16 12/11/16 12/11/16 22:59 06:59 14:59 Intake Total 50 560 Balance 50 560 Lab Results last 24 hrs: Laboratory Results - last 24 hr 12/11/16 12/11/16 Range/Units 04:55 04:55 WBC 18.30 H (4.0-11.0) K/uL RBC 4.70 (4.50-5.90) M/uL Hgb 12.2 L (13.0-17.0) g/dL Hct 41.1 (38.0-50.0) % MCV 87.4 (80.0-98.0) fL MCH 26.0 L (27.0-32.0) pg MCHC 29.7 L (31.0-37.0) g/dL RDW Std Deviation 56.0 (28.0-62.0) fl RDW Coeff of Rowdy 17 H (11.0-15.0) % Plt Count 278 (150-400) K/uL MPV 11.00 (7.40-12.00) fL Add Manual Diff YES Neutrophils % (Manual) 76 (48.0-80.0) % Band Neutrophils % 16 % Lymphocytes % (Manual) 7 L (16.0-40.0) % Monocytes % (Manual) 1 (0.0-15.0) % Nucleated RBC % 0.0 /100WBC Absolute Seg Neuts 13.9 Band Neutrophils # 2.9 Lymphocytes # (Manual) 1.3 Monocytes # (Manual) 0.2 Nucleated RBCs # 0 K/uL Sodium 152 H (136-146) mmol/L Potassium 3.9 (3.5-5.1) mmol/L Chloride 115 H (98-110) mmol/L Carbon Dioxide 23 (21-31) mmol/L BUN 47 H (6.0-23.0) mg/dL Creatinine 1.3 (0.6-1.5) mg/dL Est Cr Clr Drug Dosing 38.04 mL/min Estimated GFR (MDRD) 52.3 ml/min Glucose 95 (60-110) mg/dL Calcium 9.3 (8.8-10.8) mg/dL Magnesium 1.7 (1.5-2.3) mEq/L Med Orders - Current: Current Medications Albuterol/Ipratropium (Duoneb 3.0-0.5 Mg/3 Ml) 3 ml NEB Q6HRRT [facility] Last Admin: 12/11/16 11:43 Dose: 3 ml Aspirin (Halfprin) 81 mg PO DAILY [facility] Last Admin: 12/11/16 08:59 Dose: 81 mg Atorvastatin Calcium (Lipitor) 10 mg PO BEDTIME [facility] Last Admin: 12/10/16 22:20 Dose: Not Given Calcium Citrate (Calcitrate + Vit D Cap (315 Mg/250 Units)) 1 each PO DAILY [facility] Last Admin: 12/11/16 09:41 Dose: 1 each Divalproex Sodium (Depakote Sprinkle) 250 mg PO BID [facility] Last Admin: 12/11/16 08:59 Dose: 250 mg Docusate Sodium (Colace) 100 mg PO BID [facility] Last Admin: 12/11/16 08:58 Dose: 100 mg Donepezil HCl (Aricept) 5 mg PO BEDTIME [facility] Last Admin: 12/10/16 22:20 Dose: Not Given Dorzolamide HCl (Trusopt 2% [facility]) 0 ml EYEBOTH BID [facility] Last Admin: 12/11/16 09:39 Dose: 1 drop Levofloxacin/Dextrose 750 mg/ (Premix) 150 mls @ 100 mls/hr IV Q48H [facility] Vancomycin HCl 1.25 gm/ Sodium (Chloride) 250 mls @ 166.667 mls/hr IV Q24H [facility] Cefepime HCl 1 gm/ Premix 50 mls @ 100 mls/hr IV Q12H [facility] Last Admin: 12/11/16 10:53 Dose: 100 mls/hr Potassium Chloride/Sodium Chloride (Normal Saline With 20 Meq Kcl) 1,000 mls @ 100 mls/hr IV ASDIRECTED [facility] Levetiracetam (Keppra) 500 mg PO BID [facility] Last Admin: 12/11/16 08:58 Dose: 500 mg Levothyroxine Sodium (Synthroid) 100 mcg PO ACBREAKFAST [facility] Last Admin: 12/11/16 06:44 Dose: 100 mcg Magnesium Hydroxide (Milk Of Magnesia) 30 ml PO DAILY PRN PRN Reason: Constipation Melatonin (Melatonin) 9 mg PO BEDTIME [facility] Last Admin: 12/10/16 22:21 Dose: Not Given Multivitamins/Minerals (Thera M Plus) 1 tab PO DAILY [facility] Last Admin: 12/11/16 08:59 Dose: 1 tab Polyethylene Glycol (Miralax) 17 gm PO Q48H [facility] Last Admin: 12/11/16 08:58 Dose: 17 gm Risperidone (Risperidal) 1 mg PO TID [facility] Last Admin: 12/11/16 05:31 Dose: 1 mg Sodium Chloride (Saline Flush) 10 ml FLUSH ASDIRECTED PRN PRN Reason: Keep Vein Open Sodium Chloride (Saline Flush) 2.5 ml FLUSH ASDIRECTED PRN PRN Reason: Keep Vein Open Vancomycin HCl (Pharmacy To Dose - Vancomycin) 1 dose .XX ASDIRECTED [facility] Discontinued Medications Albuterol/Ipratropium (Duoneb 3.0-0.5 Mg/3 Ml) 3 ml NEB ONETIME ONE Stop: 12/10/16 15:14 Last Admin: 12/10/16 15:32 Dose: 3 ml Sodium Chloride (Normal Saline) 500 mls @ 999 mls/hr IV .Bolus ONE Stop: 12/10/16 15:42 Last Admin: 12/10/16 16:35 Dose: 999 mls/hr Levofloxacin/Dextrose 500 mg/ (Premix) 100 mls @ 100 mls/hr IV ONETIME ONE Stop: 12/10/16 18:00 Last Admin: 12/10/16 17:20 Dose: 100 mls/hr Cefepime HCl 1 gm/ Premix 50 mls @ 100 mls/hr IV Q8H [facility] Last Admin: 12/10/16 22:49 Dose: 100 mls/hr Vancomycin HCl 1 gm/ Sodium (Chloride) 250 mls @ 166 mls/hr IV Q1H [facility] Stop: 12/11/16 00:59 Last Admin: 12/10/16 23:27 Dose: 166 mls/hr Vancomycin HCl 1 gm/ Sodium (Chloride) 250 mls @ 166 mls/hr IV Q1H [facility] Stop: 12/11/16 01:59 Last Admin: 12/11/16 01:07 Dose: 166 mls/hr Non-Formulary Medication (Lanolin/Min Oil/Petrolatum) 1 applic EYEBOTH BID [facility] Last Admin: 12/10/16 23:27 Dose: Not Given - Exam General: alert, other (confused). No: oriented, obtunded Lungs: Rhonchi, Other (increased work of breathing. ) Cardiovascular: Regular Rhythm Abdomen: no tenderness Neurological: normal speech (non verbal), other (moderate diffuse rigidity; ) Psy/Mental Status: No: agitated - Problem List & Annotations (1) Alzheimers disease SNOMED Code(s): 32163059 Code(s): G30.9 - ALZHEIMER'S DISEASE, UNSPECIFIED Status: Acute Current Visit: Yes (2) Dehydration SNOMED Code(s): 21954538 Code(s): E86.0 - DEHYDRATION Status: Acute Current Visit: Yes (3) Failure to thrive SNOMED Code(s): 03798298 Code(s): JHB9036 - Status: Acute Current Visit: Yes Qualifiers: Failure to thrive age range: in adult Qualified Code(s): R62.7 - Adult failure to thrive (4) Pneumonia SNOMED Code(s): 462104218 Code(s): J18.9 - PNEUMONIA, UNSPECIFIED ORGANISM Status: Acute Current Visit: Yes (5) History of COPD SNOMED Code(s): 841838559 Code(s): Z87.09 - PERSONAL HISTORY OF OTHER DISEASES OF THE RESPIRATORY SYSTEM Status: Acute Current Visit: No (6) Hypothyroidism SNOMED Code(s): 32836659 Code(s): E03.9 - HYPOTHYROIDISM, UNSPECIFIED Status: Chronic Current Visit: No Qualifiers: Hypothyroidism type: unspecified Qualified Code(s): E03.9 - Hypothyroidism , unspecified (7) Electrolyte abnormality SNOMED Code(s): 063477662 Code(s): E87.8 - OTH DISORDERS OF ELECTROLYTE AND FLUID BALANCE, NEC Status : Acute Current Visit: Yes - Problem List Review Problem List Initiated/Reviewed/Updated: Yes - My Orders Last 24 Hours: My Active Orders 12/10/16 19:07 Resuscitation Status Routine 12/10/16 19:16 Oxygen Therapy [RC] PRN VTE/DVT Education [RC] PER UNIT ROUTINE Vital Signs [RC] Q4H 12/10/16 19:25 Magnesium Hydroxide [Milk of Magnesia] 30 ml PO DAILY PRN 12/10/16 21:00 Divalproex Sodium [Depakote Sprinkle] 250 mg PO BID Docusate Sodium [Colace] 100 mg PO BID Donepezil [Aricept] 5 mg PO BEDTIME Dorzolamide [Trusopt 2% Ophth Soln] 0 ml EYEBOTH BID Melatonin 9 mg PO BEDTIME atorvaSTATin [Lipitor] 10 mg PO BEDTIME levETIRAcetam [Keppra] 500 mg PO BID 12/10/16 22:00 risperiDONE [RisperiDAL] 1 mg PO TID 12/10/16 22:15 Vancomycin Pharmacy to Dose [Pharmacy to Dose - Vancomycin] 1 dose .XX ASDIRECTED 12/10/16 23:00 Cefepime [Maxipime in D5W 1 GM/50 ML] 1 gm Premix Bag 1 bag IV Q12H 12/10/16 Dinner Mechanical Soft Diet [DIET] 12/11/16 03:26 RT Aerosol Therapy [RC] ASDIRECTED 12/11/16 03:30 Albuterol/Ipratropium [DuoNeb 3.0-0.5 MG/3 ML] 3 ml NEB Q6HRRT 12/11/16 07:30 Levothyroxine [Synthroid] 100 mcg PO ACBREAKFAST 12/11/16 09:00 Aspirin [Halfprin] 81 mg PO DAILY Calcium Citrate/Vitamin D3 [Calcitrate + Vit D Cap (315 MG/250 UNITS)] 1 each PO DAILY Multivitamins w-Iron/Ca/FA/Min [Thera M Plus] 1 tab PO DAILY Polyethylene Glycol 3350 [MiraLAX] 17 gm PO Q48H 12/11/16 13:45 Sodium Chloride 0.9% with KCl 20 mEq @ 100 mL/Hr (1000 mL) NS + KCl 20mEq/L [ Normal Saline with 20 mEq KCl] 1,000 ml IV ASDIRECTED 12/12/16 00:00 Vancomycin 1.25 gm Sodium Chloride 0.9% [Normal Saline] 250 ml IV Q24H 12/12/16 05:00 BMP [BASIC METABOLIC PANEL,BMP] [CHEM] DAILY CBC WITH AUTO DIFF [HEME] DAILY MG [MAGNESIUM] [CHEM] DAILY 12/12/16 18:00 Levofloxacin/Dextrose 5%-Water [Levaquin in D5W 750 MG/150 ML] 750 mg Premix Bag 1 bag IV Q48H 12/13/16 05:00 BMP [BASIC METABOLIC PANEL,BMP] [CHEM] DAILY CBC WITH AUTO DIFF [HEME] DAILY MG [MAGNESIUM] [CHEM] DAILY - Plan Plan:: admit antibiotics DNR Tommy Ortega MD 12/11/2016 I believe that he has a clinical pneumonia. Will cover for suspected health care associated pneumonia. add 1/2 ns monitor electrolytes. Tommy Ortega MD
[2016-12-11] MEDS ORDERED: NS + KCl 20mEq/L 1,000 ML IV SCH (13:45)
[2016-12-11] MEDS: Sodium Chloride 0.45% 1,000 ML IV SCH (19:38)
[2016-12-11] MEDS: Melatonin 3 MG Tab PO SCH (21:13)
[2016-12-11] MEDS: atorvaSTATin 10 MG Tab PO SCH (21:14)
[2016-12-11] MEDS: Donepezil 5 MG Tab PO SCH (21:14)
[2016-12-12 06:11] LABS: CHLORIDE,CL 117 mmol/L (98-110); SODIUM,NA 149 mmol/L (136-146)
[2016-12-12] MEDS: Sodium Chloride 0.45% 1,000 ML IV SCH (06:21)
[2016-12-12] MEDS: risperiDONE 1 MG Tab PO SCH ×3 (06:21→22:05)
[2016-12-12] MEDS: Albuterol/Ipratropium 3.0-0.5 MG/3 ML Neb Soln NEB SCH ×4 (06:29→23:36)
[2016-12-12] MEDS: Levothyroxine 100 MCG Tab PO SCH (06:32)
[2016-12-12] MEDS: Docusate Sodium 100 MG Cap PO SCH ×2 (08:43→20:59)
[2016-12-12] MEDS: levETIRAcetam 500 MG Tab PO SCH ×2 (08:43→21:00)
[2016-12-12] MEDS: Aspirin 81 MG Tab.EC PO SCH (08:43)
[2016-12-12] MEDS: Divalproex Sodium Delayed-Release 125 MG Cap.Sprink PO SCH ×2 (08:43→20:59)
[2016-12-12] MEDS: Multivitamins with Iron/Calcium/Folic Acid/Minerals Tab PO SCH (08:43)
[2016-12-12] MEDS: Dorzolamide 2% Ophth Soln 10 ML Bottle EYEBOTH SCH ×2 (08:49→21:00)
[2016-12-12] MEDS: Calcium Citrate/Vitamin D3 Tablet PO SCH (10:00)
--- NOTE | 2016-12-12 11:35 | PCM.PN ---
- General Info Date of Service: 12/12/16 Subjective Update: he is more alert - Patient Data Vitals - most recent: Last Vital Signs Temp 98.1 F 12/12/16 07:00 Pulse 87 12/12/16 07:00 Resp 28 H 12/12/16 07:00 BP 144/74 H 12/12/16 07:00 Pulse Ox 97 12/12/16 07:00 Weight - most recent: 83 kg I&O - last 24 hours: Intake & Output 12/11/16 12/12/16 12/12/16 22:59 06:59 14:59 Intake Total 1240 1610 Output Total 577 Balance 1240 1033 Lab Results last 24 hrs: Laboratory Results - last 24 hr 12/12/16 12/12/16 Range/Units 05:35 05:35 WBC 15.42 H (4.0-11.0) K/uL RBC 3.92 L (4.50-5.90) M/uL Hgb 10.3 L (13.0-17.0) g/dL Hct 33.8 L (38.0-50.0) % MCV 86.2 (80.0-98.0) fL MCH 26.3 L (27.0-32.0) pg MCHC 30.5 L (31.0-37.0) g/dL RDW Std Deviation 55.2 (28.0-62.0) fl RDW Coeff of Rowdy 18 H (11.0-15.0) % Plt Count 266 (150-400) K/uL MPV 10.10 (7.40-12.00) fL Neut % (Auto) 84.1 H (48.0-80.0) % Lymph % (Auto) 8.6 L (16.0-40.0) % [place] % (Auto) 5.5 (0.0-15.0) % Eos % (Auto) 1.5 (0.0-7.0) % Baso % (Auto) 0.3 (0.0-1.5) % Neut # (Auto) 13.0 H (1.4-5.7) K/uL Lymph # (Auto) 1.3 (0.6-2.4) K/uL [place] # (Auto) 0.9 H (0.0-0.8) K/uL Eos # (Auto) 0.2 (0.0-0.7) K/uL Baso # (Auto) 0.1 (0.0-0.1) K/uL Nucleated RBC % 0.0 /100WBC Nucleated RBCs # 0 K/uL Sodium 149 H (136-146) mmol/L Potassium 3.5 (3.5-5.1) mmol/L Chloride 117 H (98-110) mmol/L Carbon Dioxide 24 (21-31) mmol/L BUN 46 H (6.0-23.0) mg/dL Creatinine 1.0 (0.6-1.5) mg/dL Est Cr Clr Drug Dosing 49.45 mL/min Estimated GFR (MDRD) > 60.0 ml/min Glucose 102 (60-110) mg/dL Calcium 9.0 (8.8-10.8) mg/dL Magnesium 1.6 (1.5-2.3) mEq/L Med Orders - Current: Current Medications Albuterol/Ipratropium (Duoneb 3.0-0.5 Mg/3 Ml) 3 ml NEB Q6HRRT [facility] Last Admin: 12/12/16 06:29 Dose: 3 ml Aspirin (Halfprin) 81 mg PO DAILY [facility] Last Admin: 12/12/16 08:43 Dose: 81 mg Atorvastatin Calcium (Lipitor) 10 mg PO BEDTIME [facility] Last Admin: 12/11/16 21:14 Dose: 10 mg Calcium Citrate (Calcitrate + Vit D Cap (315 Mg/250 Units)) 1 each PO DAILY [facility] Last Admin: 12/12/16 10:00 Dose: 1 each Divalproex Sodium (Depakote Sprinkle) 250 mg PO BID [facility] Last Admin: 12/12/16 08:43 Dose: 250 mg Docusate Sodium (Colace) 100 mg PO BID [facility] Last Admin: 12/12/16 08:43 Dose: 100 mg Donepezil HCl (Aricept) 5 mg PO BEDTIME [facility] Last Admin: 12/11/16 21:14 Dose: 5 mg Dorzolamide HCl (Trusopt 2% Ophth Soln) 0 ml EYEBOTH BID [facility] Last Admin: 12/12/16 08:49 Dose: 1 drop Levofloxacin/Dextrose 750 mg/ (Premix) 150 mls @ 100 mls/hr IV Q48H [facility] Vancomycin HCl 1.25 gm/ Sodium (Chloride) 250 mls @ 166.667 mls/hr IV Q24H [facility] Last Admin: 12/11/16 23:23 Dose: 166.667 mls/hr Cefepime HCl 1 gm/ Premix 50 mls @ 100 mls/hr IV Q12H [facility] Last Admin: 12/11/16 22:19 Dose: 100 mls/hr Sodium Chloride (Sodium Chloride 0.45%) 1,000 mls @ 100 mls/hr IV ASDIRECTED [facility] Last Admin: 12/12/16 06:21 Dose: 100 mls/hr Levetiracetam (Keppra) 500 mg PO BID [facility] Last Admin: 12/12/16 08:43 Dose: 500 mg Levothyroxine Sodium (Synthroid) 100 mcg PO ACBREAKFAST [facility] Last Admin: 12/12/16 06:32 Dose: 100 mcg Magnesium Hydroxide (Milk Of Magnesia) 30 ml PO DAILY PRN PRN Reason: Constipation Melatonin (Melatonin) 9 mg PO BEDTIME [facility] Last Admin: 12/11/16 21:13 Dose: 9 mg Multivitamins/Minerals (Thera M Plus) 1 tab PO DAILY [facility] Last Admin: 12/12/16 08:43 Dose: 1 tab Polyethylene Glycol (Miralax) 17 gm PO Q48H [facility] Last Admin: 12/11/16 08:58 Dose: 17 gm Risperidone (Risperidal) 1 mg PO TID [facility] Last Admin: 12/12/16 06:21 Dose: 1 mg Sodium Chloride (Saline Flush) 10 ml FLUSH ASDIRECTED PRN PRN Reason: Keep Vein Open Sodium Chloride (Saline Flush) 2.5 ml FLUSH ASDIRECTED PRN PRN Reason: Keep Vein Open Vancomycin HCl (Pharmacy To Dose - Vancomycin) 1 dose .XX ASDIRECTED [facility] Discontinued Medications Albuterol/Ipratropium (Duoneb 3.0-0.5 Mg/3 Ml) 3 ml NEB ONETIME ONE Stop: 12/10/16 15:14 Last Admin: 12/10/16 15:32 Dose: 3 ml Sodium Chloride (Normal Saline) 500 mls @ 999 mls/hr IV .Bolus ONE Stop: 12/10/16 15:42 Last Admin: 12/10/16 16:35 Dose: 999 mls/hr Levofloxacin/Dextrose 500 mg/ (Premix) 100 mls @ 100 mls/hr IV ONETIME ONE Stop: 12/10/16 18:00 Last Admin: 12/10/16 17:20 Dose: 100 mls/hr Cefepime HCl 1 gm/ Premix 50 mls @ 100 mls/hr IV Q8H [facility] Last Admin: 12/10/16 22:49 Dose: 100 mls/hr Vancomycin HCl 1 gm/ Sodium (Chloride) 250 mls @ 166 mls/hr IV Q1H [facility] Stop: 12/11/16 00:59 Last Admin: 12/10/16 23:27 Dose: 166 mls/hr Vancomycin HCl 1 gm/ Sodium (Chloride) 250 mls @ 166 mls/hr IV Q1H [facility] Stop: 12/11/16 01:59 Last Admin: 12/11/16 01:07 Dose: 166 mls/hr Potassium Chloride/Sodium Chloride (Normal Saline With 20 Meq Kcl) 1,000 mls @ 100 mls/hr IV ASDIRECTED [facility] Non-Formulary Medication (Lanolin/Min Oil/Petrolatum) 1 applic EYEBOTH BID [facility] Last Admin: 12/10/16 23:27 Dose: Not Given - Exam General: alert, cooperative, other (he is confused. He did not know that he is in the hospital. He spoke to me today and answered simple questions.) Lungs: Rhonchi (coarse diffuse rhonchi) Cardiovascular: Regular Rhythm Abdomen: no tenderness Psy/Mental Status: alert. No: agitated - Problem List & Annotations (1) Alzheimers disease SNOMED Code(s): 79958451 Code(s): G30.9 - ALZHEIMER'S DISEASE, UNSPECIFIED Status: Acute Current Visit: Yes (2) Dehydration SNOMED Code(s): 61265720 Code(s): E86.0 - DEHYDRATION Status: Acute Current Visit: Yes (3) Failure to thrive SNOMED Code(s): 71288171 Code(s): GCP7337 - Status: Acute Current Visit: Yes Qualifiers: Failure to thrive age range: in adult Qualified Code(s): R62.7 - Adult failure to thrive (4) Pneumonia SNOMED Code(s): 660939757 Code(s): J18.9 - PNEUMONIA, UNSPECIFIED ORGANISM Status: Acute Current Visit: Yes (5) History of COPD SNOMED Code(s): 095607508 Code(s): Z87.09 - PERSONAL HISTORY OF OTHER DISEASES OF THE RESPIRATORY SYSTEM Status: Acute Current Visit: No (6) Hypothyroidism SNOMED Code(s): 03883294 Code(s): E03.9 - HYPOTHYROIDISM, UNSPECIFIED Status: Chronic Current Visit: No Qualifiers: Hypothyroidism type: unspecified Qualified Code(s): E03.9 - Hypothyroidism , unspecified (7) Electrolyte abnormality SNOMED Code(s): 773408659 Code(s): E87.8 - OTH DISORDERS OF ELECTROLYTE AND FLUID BALANCE, NEC Status : Acute Current Visit: Yes - Problem List Review Problem List Initiated/Reviewed/Updated: Yes - My Orders Last 24 Hours: My Active Orders 12/11/16 13:45 Sodium Chloride 0.45% 1,000 ml IV ASDIRECTED 12/12/16 00:00 Vancomycin 1.25 gm Sodium Chloride 0.9% [Normal Saline] 250 ml IV Q24H 12/12/16 18:00 Levofloxacin/Dextrose 5%-Water [Levaquin in D5W 750 MG/150 ML] 750 mg Premix Bag 1 bag IV Q48H 12/13/16 05:00 BMP [BASIC METABOLIC PANEL,BMP] [CHEM] DAILY CBC WITH AUTO DIFF [HEME] DAILY MG [MAGNESIUM] [CHEM] DAILY - Plan Plan:: admit antibiotics DNR Tommy Ortega MD 12/11/2016 I believe that he has a clinical pneumonia. Will cover for suspected health care associated pneumonia. add 1/2 ns monitor electrolytes. Tommy Ortega MD 11/12/2016 continue present care Na trending down somewhat. watch closely for signs of volume overload. Anil Ortega MD
[2016-12-12] MEDS: Cefepime 1 GM in Premix Bag 1 BAG IV SCH ×2 (11:44→22:08)
[2016-12-12] MEDS ORDERED: Sodium Chloride 0.45% 1,000 ML IV SCH (17:11)
[2016-12-12] MEDS: Levofloxacin/Dextrose 5%-Water 750 MG in Premix Bag 1 BAG IV SCH (17:18)
[2016-12-12] MEDS: Melatonin 3 MG Tab PO SCH (20:58)
[2016-12-12] MEDS: atorvaSTATin 10 MG Tab PO SCH (20:58)
[2016-12-12] MEDS: Donepezil 5 MG Tab PO SCH (20:59)
[2016-12-13 05:46] LABS: CHLORIDE,CL 115 mmol/L (98-110); SODIUM,NA 146 mmol/L (136-146)
[2016-12-13] MEDS: Albuterol/Ipratropium 3.0-0.5 MG/3 ML Neb Soln NEB SCH ×4 (05:52→23:07)
[2016-12-13] MEDS: risperiDONE 1 MG Tab PO SCH ×3 (05:52→22:41)
[2016-12-13] MEDS: Levothyroxine 100 MCG Tab PO SCH (06:41)
[2016-12-13] MEDS: Polyethylene Glycol 3350 Powder 17 GM Packet PO SCH (08:40)
[2016-12-13] MEDS: Docusate Sodium 100 MG Cap PO SCH ×2 (08:41→20:03)
[2016-12-13] MEDS: Multivitamins with Iron/Calcium/Folic Acid/Minerals Tab PO SCH (08:41)
[2016-12-13] MEDS: levETIRAcetam 500 MG Tab PO SCH ×2 (08:41→20:04)
[2016-12-13] MEDS: Aspirin 81 MG Tab.EC PO SCH (08:41)
[2016-12-13] MEDS: Divalproex Sodium Delayed-Release 125 MG Cap.Sprink PO SCH ×2 (08:41→20:03)
[2016-12-13] MEDS: Dorzolamide 2% Ophth Soln 10 ML Bottle EYEBOTH SCH ×2 (08:42→20:03)
[2016-12-13] MEDS: Calcium Citrate/Vitamin D3 Tablet PO SCH (08:43)
[2016-12-13] MEDS: Cefepime 1 GM in Premix Bag 1 BAG IV SCH ×2 (10:31→22:34)
[2016-12-13] MEDS ORDERED: Sodium Chloride 0.9% 2.5 ML Syringe FLUSH PRN (10:37)
[2016-12-13] MEDS ORDERED: Sodium Chloride 0.9% 10 ML Syringe FLUSH PRN (10:37)
--- NOTE | 2016-12-13 12:27 | PCM.PN ---
- General Info Date of Service: 12/13/16 Subjective Update: he is more alert. he is eating well this am. - Patient Data Vitals - most recent: Last Vital Signs Temp 97.8 F 12/13/16 08:00 Pulse 101 H 12/13/16 08:00 Resp 20 12/13/16 08:00 BP 129/90 12/13/16 08:00 Pulse Ox 92 L 12/13/16 08:00 Weight - most recent: 83 kg I&O - last 24 hours: Intake & Output 12/12/16 12/13/16 12/13/16 22:59 06:59 14:59 Intake Total 500 400 850 Output Total 370 0 Balance 130 400 850 Lab Results last 24 hrs: Laboratory Results - last 24 hr 12/13/16 12/13/16 Range/Units 04:58 04:58 WBC 10.79 (4.0-11.0) K/uL RBC 4.00 L (4.50-5.90) M/uL Hgb 10.3 L (13.0-17.0) g/dL Hct 34.1 L (38.0-50.0) % MCV 85.3 (80.0-98.0) fL MCH 25.8 L (27.0-32.0) pg MCHC 30.2 L (31.0-37.0) g/dL RDW Std Deviation 54.6 (28.0-62.0) fl RDW Coeff of Rowdy 17 H (11.0-15.0) % Plt Count 296 (150-400) K/uL MPV 10.20 (7.40-12.00) fL Neut % (Auto) 78.6 (48.0-80.0) % Lymph % (Auto) 8.7 L (16.0-40.0) % [place] % (Auto) 6.6 (0.0-15.0) % Eos % (Auto) 5.7 (0.0-7.0) % Baso % (Auto) 0.4 (0.0-1.5) % Neut # (Auto) 8.5 H (1.4-5.7) K/uL Lymph # (Auto) 0.9 (0.6-2.4) K/uL [place] # (Auto) 0.7 (0.0-0.8) K/uL Eos # (Auto) 0.6 (0.0-0.7) K/uL Baso # (Auto) 0.0 (0.0-0.1) K/uL Nucleated RBC % 0.0 /100WBC Nucleated RBCs # 0 K/uL Sodium 146 (136-146) mmol/L Potassium 4.1 (3.5-5.1) mmol/L Chloride 115 H (98-110) mmol/L Carbon Dioxide 22 (21-31) mmol/L BUN 33 H (6.0-23.0) mg/dL Creatinine 0.8 (0.6-1.5) mg/dL Est Cr Clr Drug Dosing 61.82 mL/min Estimated GFR (MDRD) > 60.0 ml/min Glucose 113 H (60-110) mg/dL Calcium 8.9 (8.8-10.8) mg/dL Magnesium 1.7 (1.5-2.3) mEq/L Med Orders - Current: Current Medications Albuterol/Ipratropium (Duoneb 3.0-0.5 Mg/3 Ml) 3 ml NEB Q6HRRT [facility] Last Admin: 12/13/16 11:50 Dose: 3 ml Aspirin (Halfprin) 81 mg PO DAILY [facility] Last Admin: 12/13/16 08:41 Dose: 81 mg Atorvastatin Calcium (Lipitor) 10 mg PO BEDTIME [facility] Last Admin: 12/12/16 20:58 Dose: 10 mg Calcium Citrate (Calcitrate + Vit D Cap (315 Mg/250 Units)) 1 each PO DAILY [facility] Last Admin: 12/13/16 08:43 Dose: 1 each Divalproex Sodium (Depakote Sprinkle) 250 mg PO BID [facility] Last Admin: 12/13/16 08:41 Dose: 250 mg Docusate Sodium (Colace) 100 mg PO BID [facility] Last Admin: 12/13/16 08:41 Dose: 100 mg Donepezil HCl (Aricept) 5 mg PO BEDTIME [facility] Last Admin: 12/12/16 20:59 Dose: 5 mg Dorzolamide HCl (Trusopt 2% Ophth Soln) 0 ml EYEBOTH BID [facility] Last Admin: 12/13/16 08:42 Dose: 1 drop Levofloxacin/Dextrose 750 mg/ (Premix) 150 mls @ 100 mls/hr IV Q48H [facility] Last Admin: 12/12/16 17:18 Dose: 100 mls/hr Vancomycin HCl 1.25 gm/ Sodium (Chloride) 250 mls @ 166.667 mls/hr IV Q24H [facility] Last Admin: 12/12/16 23:04 Dose: 166.667 mls/hr Cefepime HCl 1 gm/ Premix 50 mls @ 100 mls/hr IV Q12H [facility] Last Admin: 12/13/16 10:31 Dose: 100 mls/hr Levetiracetam (Keppra) 500 mg PO BID [facility] Last Admin: 12/13/16 08:41 Dose: 500 mg Levothyroxine Sodium (Synthroid) 100 mcg PO ACBREAKFAST [facility] Last Admin: 12/13/16 06:41 Dose: 100 mcg Magnesium Hydroxide (Milk Of Magnesia) 30 ml PO DAILY PRN PRN Reason: Constipation Melatonin (Melatonin) 9 mg PO BEDTIME [facility] Last Admin: 12/12/16 20:58 Dose: 9 mg Multivitamins/Minerals (Thera M Plus) 1 tab PO DAILY [facility] Last Admin: 12/13/16 08:41 Dose: 1 tab Polyethylene Glycol (Miralax) 17 gm PO Q48H [facility] Last Admin: 12/13/16 08:40 Dose: 17 gm Risperidone (Risperidal) 1 mg PO TID [facility] Last Admin: 12/13/16 05:52 Dose: 1 mg Sodium Chloride (Saline Flush) 10 ml FLUSH ASDIRECTED PRN PRN Reason: Keep Vein Open Sodium Chloride (Saline Flush) 2.5 ml FLUSH ASDIRECTED PRN PRN Reason: Keep Vein Open Sodium Chloride (Saline Flush) 10 ml FLUSH ASDIRECTED PRN PRN Reason: Keep Vein Open Sodium Chloride (Saline Flush) 2.5 ml FLUSH ASDIRECTED PRN PRN Reason: Keep Vein Open Vancomycin HCl (Pharmacy To Dose - Vancomycin) 1 dose .XX ASDIRECTED [facility] Discontinued Medications Albuterol/Ipratropium (Duoneb 3.0-0.5 Mg/3 Ml) 3 ml NEB ONETIME ONE Stop: 12/10/16 15:14 Last Admin: 12/10/16 15:32 Dose: 3 ml Sodium Chloride (Normal Saline) 500 mls @ 999 mls/hr IV .Bolus ONE Stop: 12/10/16 15:42 Last Admin: 12/10/16 16:35 Dose: 999 mls/hr Levofloxacin/Dextrose 500 mg/ (Premix) 100 mls @ 100 mls/hr IV ONETIME ONE Stop: 12/10/16 18:00 Last Admin: 12/10/16 17:20 Dose: 100 mls/hr Cefepime HCl 1 gm/ Premix 50 mls @ 100 mls/hr IV Q8H [facility] Last Admin: 12/10/16 22:49 Dose: 100 mls/hr Vancomycin HCl 1 gm/ Sodium (Chloride) 250 mls @ 166 mls/hr IV Q1H [facility] Stop: 12/11/16 00:59 Last Admin: 12/10/16 23:27 Dose: 166 mls/hr Vancomycin HCl 1 gm/ Sodium (Chloride) 250 mls @ 166 mls/hr IV Q1H [facility] Stop: 12/11/16 01:59 Last Admin: 12/11/16 01:07 Dose: 166 mls/hr Potassium Chloride/Sodium Chloride (Normal Saline With 20 Meq Kcl) 1,000 mls @ 100 mls/hr IV ASDIRECTED [facility] Sodium Chloride (Sodium Chloride 0.45%) 1,000 mls @ 100 mls/hr IV ASDIRECTED [facility] Last Admin: 12/12/16 06:21 Dose: 100 mls/hr Sodium Chloride (Sodium Chloride 0.45%) 1,000 mls @ 50 mls/hr IV ASDIRECTED [facility] Last Admin: 12/12/16 17:23 Dose: 50 mls/hr Non-Formulary Medication (Lanolin/Min Oil/Petrolatum) 1 applic EYEBOTH BID [facility] Last Admin: 12/10/16 23:27 Dose: Not Given - Exam General: alert, cooperative. No: oriented Lungs: Rhonchi (diffuse coarse rhonchi; good tidal volumes ) Abdomen: no tenderness Psy/Mental Status: No: agitated Physical Findings Comments:: diffuse hypertonia - Problem List & Annotations (1) Alzheimers disease SNOMED Code(s): 43670684 Code(s): G30.9 - ALZHEIMER'S DISEASE, UNSPECIFIED Status: Acute Current Visit: Yes (2) Dehydration SNOMED Code(s): 59071390 Code(s): E86.0 - DEHYDRATION Status: Acute Current Visit: Yes (3) Failure to thrive SNOMED Code(s): 21954240 Code(s): DWB1625 - Status: Acute Current Visit: Yes Qualifiers: Failure to thrive age range: in adult Qualified Code(s): R62.7 - Adult failure to thrive (4) Pneumonia SNOMED Code(s): 316983821 Code(s): J18.9 - PNEUMONIA, UNSPECIFIED ORGANISM Status: Acute Current Visit: Yes (5) History of COPD SNOMED Code(s): 927153334 Code(s): Z87.09 - PERSONAL HISTORY OF OTHER DISEASES OF THE RESPIRATORY SYSTEM Status: Acute Current Visit: No (6) Hypothyroidism SNOMED Code(s): 27916740 Code(s): E03.9 - HYPOTHYROIDISM, UNSPECIFIED Status: Chronic Current Visit: No Qualifiers: Hypothyroidism type: unspecified Qualified Code(s): E03.9 - Hypothyroidism , unspecified (7) Electrolyte abnormality SNOMED Code(s): 371311759 Code(s): E87.8 - OTH DISORDERS OF ELECTROLYTE AND FLUID BALANCE, NEC Status : Acute Current Visit: Yes - Problem List Review Problem List Initiated/Reviewed/Updated: Yes - My Orders Last 24 Hours: My Active Orders 12/12/16 18:00 Levofloxacin/Dextrose 5%-Water [Levaquin in D5W 750 MG/150 ML] 750 mg Premix Bag 1 bag IV Q48H 12/13/16 10:37 Sodium Chloride 0.9% [Saline Flush] 10 ml FLUSH ASDIRECTED PRN Sodium Chloride 0.9% [Saline Flush] 2.5 ml FLUSH ASDIRECTED PRN Convert IV to Peripheral Lock [Convert IV to Saline Lock] [OM.PC] Routine 12/14/16 05:11 BASIC METABOLIC PANEL,BMP [CHEM] AM CBC WITH AUTO DIFF [HEME] AM - Plan Plan:: admit antibiotics DNR Tommy Ortega MD 12/11/2016 I believe that he has a clinical pneumonia. Will cover for suspected health care associated pneumonia. add 1/2 ns monitor electrolytes. Tommy Ortega MD 12/12/2016 continue present care Na trending down somewhat. watch closely for signs of volume overload. Anil Ortega MD 12/13/16 anticipate discharge back to [place] tomorrow IV to saline lock Tommy Ortega MD
[2016-12-13] MEDS: Melatonin 3 MG Tab PO SCH (20:03)
[2016-12-13] MEDS: atorvaSTATin 10 MG Tab PO SCH (20:04)
[2016-12-13] MEDS: Donepezil 5 MG Tab PO SCH (20:04)
[2016-12-14 05:52] LABS: CHLORIDE,CL 109 mmol/L (98-110); SODIUM,NA 143 mmol/L (136-146)
[2016-12-14] MEDS: Albuterol/Ipratropium 3.0-0.5 MG/3 ML Neb Soln NEB SCH ×4 (06:03→23:46)
[2016-12-14] MEDS: risperiDONE 1 MG Tab PO SCH ×4 (06:03→23:50)
[2016-12-14] MEDS: Levothyroxine 100 MCG Tab PO SCH (06:38)
[2016-12-14] MEDS ORDERED: Magnesium Hydroxide 400 MG/5 ML Susp 30 ML Cup PO ONE (09:04)
--- NOTE | 2016-12-14 09:04 | PCM.PN ---
- General Info Date of Service: 12/14/16 - Review of Systems Systems Review Comment:: He seems to be stabilizing. I note that no BM noted since admission. - Patient Data Vitals - most recent: Last Vital Signs Temp 97.4 F 12/14/16 08:00 Pulse 102 H 12/14/16 08:00 Resp 20 12/14/16 08:00 BP 150/83 H 12/14/16 08:00 Pulse Ox 93 L 12/14/16 08:00 Weight - most recent: 84 kg I&O - last 24 hours: Intake & Output 12/13/16 12/14/16 12/14/16 22:59 06:59 14:59 Intake Total 720 550 Balance 720 550 Lab Results last 24 hrs: Laboratory Results - last 24 hr 12/14/16 12/14/16 Range/Units 05:25 05:25 WBC 11.77 H (4.0-11.0) K/uL RBC 4.13 L (4.50-5.90) M/uL Hgb 10.8 L (13.0-17.0) g/dL Hct 35.3 L (38.0-50.0) % MCV 85.5 (80.0-98.0) fL MCH 26.2 L (27.0-32.0) pg MCHC 30.6 L (31.0-37.0) g/dL RDW Std Deviation 54.5 (28.0-62.0) fl RDW Coeff of Rowdy 17 H (11.0-15.0) % Plt Count 290 (150-400) K/uL MPV 10.30 (7.40-12.00) fL Add Manual Diff YES Neutrophils % (Manual) 64 (48.0-80.0) % Band Neutrophils % 2 % Lymphocytes % (Manual) 21 (16.0-40.0) % Monocytes % (Manual) 4 (0.0-15.0) % Eosinophils % (Manual) 8 H (0.0-7.0) % Metamyelocytes % 1 % Nucleated RBC % 0.0 /100WBC Absolute Seg Neuts 7.5 Band Neutrophils # 0.2 Lymphocytes # (Manual) 2.5 Monocytes # (Manual) 0.5 Eosinophils # (Manual) 0.9 Absolute Metamyelocyte 0.1 Nucleated RBCs # 0 K/uL Sodium 143 (136-146) mmol/L Potassium 3.6 (3.5-5.1) mmol/L Chloride 109 (98-110) mmol/L Carbon Dioxide 20 L (21-31) mmol/L BUN 31 H (6.0-23.0) mg/dL Creatinine 0.8 (0.6-1.5) mg/dL Est Cr Clr Drug Dosing 61.82 mL/min Estimated GFR (MDRD) > 60.0 ml/min Glucose 96 (60-110) mg/dL Calcium 8.7 L (8.8-10.8) mg/dL Med Orders - Current: Current Medications Albuterol/Ipratropium (Duoneb 3.0-0.5 Mg/3 Ml) 3 ml NEB Q6HRRT [facility] Last Admin: 12/14/16 06:03 Dose: 3 ml Aspirin (Halfprin) 81 mg PO DAILY [facility] Last Admin: 12/13/16 08:41 Dose: 81 mg Atorvastatin Calcium (Lipitor) 10 mg PO BEDTIME [facility] Last Admin: 12/13/16 20:04 Dose: 10 mg Calcium Citrate (Calcitrate + Vit D Cap (315 Mg/250 Units)) 1 each PO DAILY [facility] Last Admin: 12/13/16 08:43 Dose: 1 each Divalproex Sodium (Depakote Sprinkle) 250 mg PO BID [facility] Last Admin: 12/13/16 20:03 Dose: 250 mg Docusate Sodium (Colace) 100 mg PO BID [facility] Last Admin: 12/13/16 20:03 Dose: 100 mg Donepezil HCl (Aricept) 5 mg PO BEDTIME [facility] Last Admin: 12/13/16 20:04 Dose: 5 mg Dorzolamide HCl ([facility] 0 ml EYEBOTH BID [facility] Last Admin: 12/13/16 20:03 Dose: 1 drop Levofloxacin/Dextrose 750 mg/ (Premix) 150 mls @ 100 mls/hr IV Q48H [facility] Last Admin: 12/12/16 17:18 Dose: 100 mls/hr Vancomycin HCl 1.25 gm/ Sodium (Chloride) 250 mls @ 166.667 mls/hr IV Q24H [facility] Last Admin: 12/13/16 23:10 Dose: 166.667 mls/hr Cefepime HCl 1 gm/ Premix 50 mls @ 100 mls/hr IV Q12H [facility] Last Admin: 12/13/16 22:34 Dose: 100 mls/hr Levetiracetam (Keppra) 500 mg PO BID [facility] Last Admin: 12/13/16 20:04 Dose: 500 mg Levothyroxine Sodium (Synthroid) 100 mcg PO ACBREAKFAST [facility] Last Admin: 12/14/16 06:38 Dose: 100 mcg Magnesium Hydroxide (Milk Of Magnesia) 30 ml PO DAILY PRN PRN Reason: Constipation Melatonin (Melatonin) 9 mg PO BEDTIME [facility] Last Admin: 12/13/16 20:03 Dose: 9 mg Methylprednisolone Sodium Succinate (Solu-Medrol) 125 mg IVPUSH Q6H [facility] Multivitamins/Minerals (Thera M Plus) 1 tab PO DAILY [facility] Last Admin: 12/13/16 08:41 Dose: 1 tab Polyethylene Glycol (Miralax) 17 gm PO Q48H [facility] Last Admin: 12/13/16 08:40 Dose: 17 gm Risperidone (Risperidal) 1 mg PO TID [facility] Last Admin: 12/14/16 06:03 Dose: 1 mg Sodium Chloride (Saline Flush) 10 ml FLUSH ASDIRECTED PRN PRN Reason: Keep Vein Open Sodium Chloride (Saline Flush) 2.5 ml FLUSH ASDIRECTED PRN PRN Reason: Keep Vein Open Sodium Chloride (Saline Flush) 10 ml FLUSH ASDIRECTED PRN PRN Reason: Keep Vein Open Sodium Chloride (Saline Flush) 2.5 ml FLUSH ASDIRECTED PRN PRN Reason: Keep Vein Open Vancomycin HCl (Pharmacy To Dose - Vancomycin) 1 dose .XX ASDIRECTED [facility] Discontinued Medications Albuterol/Ipratropium (Duoneb 3.0-0.5 Mg/3 Ml) 3 ml NEB ONETIME ONE Stop: 12/10/16 15:14 Last Admin: 12/10/16 15:32 Dose: 3 ml Sodium Chloride (Normal Saline) 500 mls @ 999 mls/hr IV .Bolus ONE Stop: 12/10/16 15:42 Last Admin: 12/10/16 16:35 Dose: 999 mls/hr Levofloxacin/Dextrose 500 mg/ (Premix) 100 mls @ 100 mls/hr IV ONETIME ONE Stop: 12/10/16 18:00 Last Admin: 12/10/16 17:20 Dose: 100 mls/hr Cefepime HCl 1 gm/ Premix 50 mls @ 100 mls/hr IV Q8H [facility] Last Admin: 12/10/16 22:49 Dose: 100 mls/hr Vancomycin HCl 1 gm/ Sodium (Chloride) 250 mls @ 166 mls/hr IV Q1H [facility] Stop: 12/11/16 00:59 Last Admin: 12/10/16 23:27 Dose: 166 mls/hr Vancomycin HCl 1 gm/ Sodium (Chloride) 250 mls @ 166 mls/hr IV Q1H [facility] Stop: 12/11/16 01:59 Last Admin: 12/11/16 01:07 Dose: 166 mls/hr Potassium Chloride/Sodium Chloride (Normal Saline With 20 Meq Kcl) 1,000 mls @ 100 mls/hr IV ASDIRECTED [facility] Sodium Chloride (Sodium Chloride 0.45%) 1,000 mls @ 100 mls/hr IV ASDIRECTED [facility] Last Admin: 12/12/16 06:21 Dose: 100 mls/hr Sodium Chloride (Sodium Chloride 0.45%) 1,000 mls @ 50 mls/hr IV ASDIRECTED [facility] Last Admin: 12/12/16 17:23 Dose: 50 mls/hr Non-Formulary Medication (Lanolin/Min Oil/Petrolatum) 1 applic EYEBOTH BID [facility] Last Admin: 12/10/16 23:27 Dose: Not Given - Exam General: other (sleeping ; sitting in a chair; ate 50% breakfast. ) Neck: trachea midline Lungs: Rhonchi, Other (labored breathing with RR 36 /minute) - Problem List & Annotations (1) Alzheimers disease SNOMED Code(s): 54953245 Code(s): G30.9 - ALZHEIMER'S DISEASE, UNSPECIFIED Status: Acute Current Visit: Yes (2) Dehydration SNOMED Code(s): 95218395 Code(s): E86.0 - DEHYDRATION Status: Acute Current Visit: Yes (3) Failure to thrive SNOMED Code(s): 46549638 Code(s): LYA4323 - Status: Acute Current Visit: Yes Qualifiers: Failure to thrive age range: in adult Qualified Code(s): R62.7 - Adult failure to thrive (4) Pneumonia SNOMED Code(s): 213151240 Code(s): J18.9 - PNEUMONIA, UNSPECIFIED ORGANISM Status: Acute Current Visit: Yes (5) History of COPD SNOMED Code(s): 086753057 Code(s): Z87.09 - PERSONAL HISTORY OF OTHER DISEASES OF THE RESPIRATORY SYSTEM Status: Acute Current Visit: No (6) Hypothyroidism SNOMED Code(s): 24082167 Code(s): E03.9 - HYPOTHYROIDISM, UNSPECIFIED Status: Chronic Current Visit: No Qualifiers: Hypothyroidism type: unspecified Qualified Code(s): E03.9 - Hypothyroidism , unspecified (7) Electrolyte abnormality SNOMED Code(s): 314193605 Code(s): E87.8 - OTH DISORDERS OF ELECTROLYTE AND FLUID BALANCE, NEC Status : Acute Current Visit: Yes - Problem List Review Problem List Initiated/Reviewed/Updated: Yes - My Orders Last 24 Hours: My Active Orders 12/13/16 10:37 Sodium Chloride 0.9% [Saline Flush] 10 ml FLUSH ASDIRECTED PRN Sodium Chloride 0.9% [Saline Flush] 2.5 ml FLUSH ASDIRECTED PRN Convert IV to Peripheral Lock [Convert IV to Saline Lock] [OM.PC] Routine 12/14/16 09:15 methylPREDNISolone Sod Succ [Solu-MEDROL] 125 mg IVPUSH Q6H 12/15/16 07:00 CXR [Chest 1V Frontal] [CR] Routine - Plan Plan:: admit antibiotics DNR Tommy Ortega MD 12/11/2016 I believe that he has a clinical pneumonia. Will cover for suspected health care associated pneumonia. add 1/2 ns monitor electrolytes. Tommy Ortega MD 12/12/2016 continue present care Na trending down somewhat. watch closely for signs of volume overload. Anil Ortega MD 12/13/16 anticipate discharge back to [place] tomorrow IV to saline lock Tommy Ortega MD 12/14/2016 tachypnea noted. I believe that he also has a flair of COPD. Will add solumedrol. Mg citrate for constipation Tommy Ortega MD
[2016-12-14] MEDS ORDERED: Magnesium Citrate Solution 296 ML Bottle PO ONE (09:07)
[2016-12-14] MEDS: Docusate Sodium 100 MG Cap PO SCH ×2 (09:20→23:49)
[2016-12-14] MEDS: levETIRAcetam 500 MG Tab PO SCH ×2 (09:20→23:49)
[2016-12-14] MEDS: Aspirin 81 MG Tab.EC PO SCH (09:20)
[2016-12-14] MEDS: methylPREDNISolone Sodium Succinate 125 MG/2 ML SDV IVPUSH SCH ×3 (09:20→21:34)
[2016-12-14] MEDS: Multivitamins with Iron/Calcium/Folic Acid/Minerals Tab PO SCH (09:20)
[2016-12-14] MEDS: Divalproex Sodium Delayed-Release 125 MG Cap.Sprink PO SCH ×2 (09:20→23:49)
[2016-12-14] MEDS: Dorzolamide 2% Ophth Soln 10 ML Bottle EYEBOTH SCH ×2 (09:21→21:30)
[2016-12-14] MEDS: Calcium Citrate/Vitamin D3 Tablet PO SCH (09:25)
[2016-12-14] MEDS: Cefepime 1 GM in Premix Bag 1 BAG IV SCH ×2 (11:49→23:46)
--- NOTE | 2016-12-14 18:04 | PCM.PN ---
- General Info Date of Service: 12/14/16 - Review of Systems Systems Review Comment:: I was called to see this man because about 4 pm he was noted to have a prominent left facial droop and left UE weakness. Since then he has been obtunded but without definite focal motor asymmetry. - Patient Data Vitals - most recent: Last Vital Signs Temp 97.3 F 12/14/16 16:00 Pulse 89 12/14/16 16:00 Resp 22 H 12/14/16 16:00 BP 114/78 12/14/16 16:00 Pulse Ox 92 L 12/14/16 16:00 Weight - most recent: 84 kg I&O - last 24 hours: Intake & Output 12/14/16 12/14/16 12/14/16 06:59 14:59 22:59 Intake Total 550 50 480 Balance 550 50 480 Lab Results last 24 hrs: Laboratory Results - last 24 hr 12/14/16 12/14/16 Range/Units 05:25 05:25 WBC 11.77 H (4.0-11.0) K/uL RBC 4.13 L (4.50-5.90) M/uL Hgb 10.8 L (13.0-17.0) g/dL Hct 35.3 L (38.0-50.0) % MCV 85.5 (80.0-98.0) fL MCH 26.2 L (27.0-32.0) pg MCHC 30.6 L (31.0-37.0) g/dL RDW Std Deviation 54.5 (28.0-62.0) fl RDW Coeff of Rowdy 17 H (11.0-15.0) % Plt Count 290 (150-400) K/uL MPV 10.30 (7.40-12.00) fL Add Manual Diff YES Neutrophils % (Manual) 64 (48.0-80.0) % Band Neutrophils % 2 % Lymphocytes % (Manual) 21 (16.0-40.0) % Monocytes % (Manual) 4 (0.0-15.0) % Eosinophils % (Manual) 8 H (0.0-7.0) % Metamyelocytes % 1 % Nucleated RBC % 0.0 /100WBC Absolute Seg Neuts 7.5 Band Neutrophils # 0.2 Lymphocytes # (Manual) 2.5 Monocytes # (Manual) 0.5 Eosinophils # (Manual) 0.9 Absolute Metamyelocyte 0.1 Nucleated RBCs # 0 K/uL Sodium 143 (136-146) mmol/L Potassium 3.6 (3.5-5.1) mmol/L Chloride 109 (98-110) mmol/L Carbon Dioxide 20 L (21-31) mmol/L BUN 31 H (6.0-23.0) mg/dL Creatinine 0.8 (0.6-1.5) mg/dL Est Cr Clr Drug Dosing 61.82 mL/min Estimated GFR (MDRD) > 60.0 ml/min Glucose 96 (60-110) mg/dL Calcium 8.7 L (8.8-10.8) mg/dL Med Orders - Current: Current Medications Albuterol/Ipratropium (Duoneb 3.0-0.5 Mg/3 Ml) 3 ml NEB Q6HRRT [facility] Last Admin: 12/14/16 17:26 Dose: 3 ml Aspirin (Halfprin) 81 mg PO DAILY [facility] Last Admin: 12/14/16 09:20 Dose: 81 mg Atorvastatin Calcium (Lipitor) 10 mg PO BEDTIME [facility] Last Admin: 12/13/16 20:04 Dose: 10 mg Calcium Citrate (Calcitrate + Vit D Cap (315 Mg/250 Units)) 1 each PO DAILY [facility] Last Admin: 12/14/16 09:25 Dose: 1 each Divalproex Sodium (Depakote Sprinkle) 250 mg PO BID [facility] Last Admin: 12/14/16 09:20 Dose: 250 mg Docusate Sodium (Colace) 100 mg PO BID [facility] Last Admin: 12/14/16 09:20 Dose: 100 mg Donepezil HCl (Aricept) 5 mg PO BEDTIME [facility] Last Admin: 12/13/16 20:04 Dose: 5 mg Dorzolamide HCl (Trusopt 2% Ophth Soln) 0 ml EYEBOTH BID [facility] Last Admin: 12/14/16 09:21 Dose: 1 drop Levofloxacin/Dextrose 750 mg/ (Premix) 150 mls @ 100 mls/hr IV Q48H [facility] Last Admin: 12/12/16 17:18 Dose: 100 mls/hr Vancomycin HCl 1.25 gm/ Sodium (Chloride) 250 mls @ 166.667 mls/hr IV Q24H [facility] Last Admin: 05/13/17 23:10 Dose: 166.667 mls/hr Cefepime HCl 1 gm/ Premix 50 mls @ 100 mls/hr IV Q12H [facility] Last Admin: 12/14/16 11:49 Dose: 100 mls/hr Levetiracetam (Keppra) 500 mg PO BID [facility] Last Admin: 12/14/16 09:20 Dose: 500 mg Levothyroxine Sodium (Synthroid) 100 mcg PO ACBREAKFAST [facility] Last Admin: 12/14/16 06:38 Dose: 100 mcg Magnesium Hydroxide (Milk Of Magnesia) 30 ml PO DAILY PRN PRN Reason: Constipation Melatonin (Melatonin) 9 mg PO BEDTIME [facility] Last Admin: 12/13/16 20:03 Dose: 9 mg Methylprednisolone Sodium Succinate (Solu-Medrol) 125 mg IVPUSH Q6H [facility] Last Admin: 12/14/16 14:59 Dose: 125 mg Multivitamins/Minerals (Thera M Plus) 1 tab PO DAILY [facility] Last Admin: 12/14/16 09:20 Dose: 1 tab Polyethylene Glycol (Miralax) 17 gm PO Q48H [facility] Last Admin: 12/13/16 08:40 Dose: 17 gm Risperidone (Risperidal) 1 mg PO TID [facility] Last Admin: 12/14/16 15:24 Dose: Not Given Sodium Chloride (Saline Flush) 10 ml FLUSH ASDIRECTED PRN PRN Reason: Keep Vein Open Sodium Chloride (Saline Flush) 2.5 ml FLUSH ASDIRECTED PRN PRN Reason: Keep Vein Open Sodium Chloride (Saline Flush) 10 ml FLUSH ASDIRECTED PRN PRN Reason: Keep Vein Open Sodium Chloride (Saline Flush) 2.5 ml FLUSH ASDIRECTED PRN PRN Reason: Keep Vein Open Vancomycin HCl (Pharmacy To Dose - Vancomycin) 1 dose .XX ASDIRECTED [facility] Discontinued Medications Albuterol/Ipratropium (Duoneb 3.0-0.5 Mg/3 Ml) 3 ml NEB ONETIME ONE Stop: 12/10/16 15:14 Last Admin: 12/10/16 15:32 Dose: 3 ml Sodium Chloride (Normal Saline) 500 mls @ 999 mls/hr IV .Bolus ONE Stop: 12/10/16 15:42 Last Admin: 12/10/16 16:35 Dose: 999 mls/hr Levofloxacin/Dextrose 500 mg/ (Premix) 100 mls @ 100 mls/hr IV ONETIME ONE Stop: 12/10/16 18:00 Last Admin: 12/10/16 17:20 Dose: 100 mls/hr Cefepime HCl 1 gm/ Premix 50 mls @ 100 mls/hr IV Q8H [facility] Last Admin: 12/10/16 22:49 Dose: 100 mls/hr Vancomycin HCl 1 gm/ Sodium (Chloride) 250 mls @ 166 mls/hr IV Q1H [facility] Stop: 12/11/16 00:59 Last Admin: 12/10/16 23:27 Dose: 166 mls/hr Vancomycin HCl 1 gm/ Sodium (Chloride) 250 mls @ 166 mls/hr IV Q1H [facility] Stop: 12/11/16 01:59 Last Admin: 12/11/16 01:07 Dose: 166 mls/hr Potassium Chloride/Sodium Chloride (Normal Saline With 20 Meq Kcl) 1,000 mls @ 100 mls/hr IV ASDIRECTED [facility] Sodium Chloride (Sodium Chloride 0.45%) 1,000 mls @ 100 mls/hr IV ASDIRECTED [facility] Last Admin: 12/12/16 06:21 Dose: 100 mls/hr Sodium Chloride (Sodium Chloride 0.45%) 1,000 mls @ 50 mls/hr IV ASDIRECTED [facility] Last Admin: 12/12/16 17:23 Dose: 50 mls/hr Magnesium Citrate (Citrate Of Magnesia) 296 ml PO ONETIME ONE Stop: 12/14/16 09:08 Last Admin: 12/14/16 10:18 Dose: Not Given Magnesium Hydroxide (Milk Of Magnesia) 30 ml PO ONETIME ONE Stop: 12/14/16 09:05 Last Admin: 12/14/16 10:18 Dose: Not Given Non-Formulary Medication (Lanolin/Min Oil/Petrolatum) 1 applic EYEBOTH BID [facility] Last Admin: 12/10/16 23:27 Dose: Not Given - Exam General: obtunded Lungs: Normal respiratory effort, Rhonchi (faint; good tidal volumes ) Cardiovascular: Regular Rate, Regular Rhythm Abdomen: no tenderness Extremities: no cyanosis Psy/Mental Status: No: alert, agitated Physical Findings Comments:: no facial asymmetry he has slight rigidity UE's but no spontaneous movement UE's - Problem List & Annotations (1) Alzheimers disease SNOMED Code(s): 13993648 Code(s): G30.9 - ALZHEIMER'S DISEASE, UNSPECIFIED Status: Acute Current Visit: Yes (2) Dehydration SNOMED Code(s): 55007183 Code(s): E86.0 - DEHYDRATION Status: Acute Current Visit: Yes (3) Failure to thrive SNOMED Code(s): 91018887 Code(s): AWO8672 - Status: Acute Current Visit: Yes Qualifiers: Failure to thrive age range: in adult Qualified Code(s): R62.7 - Adult failure to thrive (4) Pneumonia SNOMED Code(s): 373092894 Code(s): J18.9 - PNEUMONIA, UNSPECIFIED ORGANISM Status: Acute Current Visit: Yes (5) History of COPD SNOMED Code(s): 972869431 Code(s): Z87.09 - PERSONAL HISTORY OF OTHER DISEASES OF THE RESPIRATORY SYSTEM Status: Acute Current Visit: No (6) Hypothyroidism SNOMED Code(s): 63375094 Code(s): E03.9 - HYPOTHYROIDISM, UNSPECIFIED Status: Chronic Current Visit: No Qualifiers: Hypothyroidism type: unspecified Qualified Code(s): E03.9 - Hypothyroidism , unspecified (7) Electrolyte abnormality SNOMED Code(s): 536617355 Code(s): E87.8 - OTH DISORDERS OF ELECTROLYTE AND FLUID BALANCE, NEC Status : Acute Current Visit: Yes (8) Stroke SNOMED Code(s): 379690739 Code(s): I63.9 - CEREBRAL INFARCTION, UNSPECIFIED Status: Acute Current Visit: Yes - Problem List Review Problem List Initiated/Reviewed/Updated: Yes - My Orders Last 24 Hours: My Active Orders 12/14/16 09:15 methylPREDNISolone Sod Succ [Solu-MEDROL] 125 mg IVPUSH Q6H 12/14/16 16:37 Head wo Cont [CT] Stat 12/15/16 07:00 CXR [Chest 1V Frontal] [CR] Routine - Plan Plan:: admit antibiotics DNR Tommy Ortega MD 12/11/2016 I believe that he has a clinical pneumonia. Will cover for suspected health care associated pneumonia. add 1/2 ns monitor electrolytes. Tommy Ortega MD 12/12/2016 continue present care Na trending down somewhat. watch closely for signs of volume overload. Anil Ortega MD 12/13/16 anticipate discharge back to [place] tomorrow IV to saline lock Tommy Ortega MD 12/14/2016 tachypnea noted. I believe that he also has a flair of COPD. Will add solumedrol. Mg citrate for constipation Tommy Ortega MD 12/14/2016 I think a stroke is likely but in view of his advanced dementia I do not recommend aggressive ijntervention. Supportive care will be given for now and will observe to see if he has any recovery. Tommy Ortega MD
--- NOTE | 2016-12-14 18:41 | PCM.SN ---
- Free Text/Narrative Note: CT head showed no acute change. I called [phone] and spoke with his daughter Fior regarding his condition. She understands that he may have had a stroke and that is possible if he does not regain swallowing function Tommy Ortega MD
[2016-12-14] MEDS: Levofloxacin/Dextrose 5%-Water 750 MG in Premix Bag 1 BAG IV SCH (18:43)
[2016-12-14] MEDS: Sodium Chloride 0.9% 1,000 ML IV SCH (18:44)
[2016-12-14] MEDS: Donepezil 5 MG Tab PO SCH (23:49)
[2016-12-14] MEDS: atorvaSTATin 10 MG Tab PO SCH (23:49)
[2016-12-14] MEDS: Melatonin 3 MG Tab PO SCH (23:49)
[2016-12-15] MEDS: methylPREDNISolone Sodium Succinate 125 MG/2 ML SDV IVPUSH SCH ×2 (03:55→08:23)
[2016-12-15] MEDS: Levothyroxine 100 MCG Tab PO SCH (06:43)
[2016-12-15] MEDS: Albuterol/Ipratropium 3.0-0.5 MG/3 ML Neb Soln NEB SCH ×4 (06:43→23:36)
[2016-12-15] MEDS: risperiDONE 1 MG Tab PO SCH ×3 (06:44→21:54)
[2016-12-15] MEDS: Multivitamins with Iron/Calcium/Folic Acid/Minerals Tab PO SCH (08:21)
[2016-12-15] MEDS: Aspirin 81 MG Tab.EC PO SCH (08:21)
[2016-12-15] MEDS: levETIRAcetam 500 MG Tab PO SCH ×2 (08:22→21:55)
[2016-12-15] MEDS: Divalproex Sodium Delayed-Release 125 MG Cap.Sprink PO SCH ×2 (08:22→21:55)
[2016-12-15] MEDS: Dorzolamide 2% Ophth Soln 10 ML Bottle EYEBOTH SCH ×2 (08:23→22:04)
[2016-12-15] MEDS: Docusate Sodium 100 MG Cap PO SCH ×2 (08:23→21:54)
[2016-12-15] MEDS: Calcium Citrate/Vitamin D3 Tablet PO SCH (08:23)
[2016-12-15] MEDS: Sodium Chloride 0.9% 1,000 ML IV SCH (08:37)
[2016-12-15] MEDS: Polyethylene Glycol 3350 Powder 17 GM Packet PO SCH (08:41)
[2016-12-15 09:53] LABS: CHLORIDE,CL 110 mmol/L (98-110); SODIUM,NA 144 mmol/L (136-146)
--- NOTE | 2016-12-15 10:18 | PCM.PN ---
- General Info Date of Service: 12/15/16 Admission Dx/Problem (Free Text): Admission Diagnosis/Problem Admission Diagnosis/Problem Failure to thrive in adult Subjective Update: Alert and talking to me this am. Denies chest pain or trouble breathing and no abdominal pain. Sounded quite congested, did cough and coughed up some food particles, clearing the congestion. He waved goodbye to me with left hand. Functional Status: Reports: pain controlled, urinating. Denies: tolerating diet , ambulating - Review of Systems General: Reports: No Symptoms. Denies: Fever HEENT: Reports: no symptoms. Denies: sinus congestion, sore throat Pulmonary: Reports: no symptoms. Denies: shortness of breath Cardiovascular: Reports: No Symptoms. Denies: Chest Pain Gastrointestinal: Reports: No symptoms. Denies: Abdominal pain - Patient Data Vitals - most recent: Last Vital Signs Temp 97.2 F 12/15/16 08:00 Pulse 68 12/15/16 08:00 Resp 28 H 12/15/16 08:00 BP 120/61 12/15/16 08:00 Pulse Ox 91 L 12/15/16 08:00 Weight - most recent: 84 kg I&O - last 24 hours: Intake & Output 12/14/16 12/15/16 12/15/16 22:59 06:59 14:59 Intake Total 541 491 8763 Output Total 453 Balance 630 -153 1000 Lab Results last 24 hrs: Laboratory Results - last 24 hr 12/14/16 12/15/16 12/15/16 Range/Units 23:30 09:25 09:25 WBC 11.14 H (4.0-11.0) K/uL RBC 4.14 L (4.50-5.90) M/uL Hgb 10.9 L (13.0-17.0) g/dL Hct 35.3 L (38.0-50.0) % MCV 85.3 (80.0-98.0) fL MCH 26.3 L (27.0-32.0) pg MCHC 30.9 L (31.0-37.0) g/dL RDW Std Deviation 52.9 (28.0-62.0) fl RDW Coeff of Rowdy 17 H (11.0-15.0) % Plt Count 300 (150-400) K/uL MPV 10.60 (7.40-12.00) fL Add Manual Diff YES Neutrophils % (Manual) 84 H (48.0-80.0) % Band Neutrophils % 5 % Lymphocytes % (Manual) 9 L (16.0-40.0) % Monocytes % (Manual) 2 (0.0-15.0) % Nucleated RBC % 0.0 /100WBC Absolute Seg Neuts 9.4 Band Neutrophils # 0.6 Lymphocytes # (Manual) 1.0 Monocytes # (Manual) 0.2 Nucleated RBCs # 0 K/uL Sodium 144 (136-146) mmol/L Potassium 4.5 (3.5-5.1) mmol/L Chloride 110 (98-110) mmol/L Carbon Dioxide 23 (21-31) mmol/L BUN 35 H (6.0-23.0) mg/dL Creatinine 0.9 (0.6-1.5) mg/dL Est Cr Clr Drug Dosing 54.95 mL/min Estimated GFR (MDRD) > 60.0 ml/min Glucose 162 H (60-110) mg/dL Calcium 8.6 L (8.8-10.8) mg/dL Vancomycin Trough 8.6 (5-15) ug/mL Med Orders - Current: Current Medications Albuterol/Ipratropium (Duoneb 3.0-0.5 Mg/3 Ml) 3 ml NEB Q6HRRT [facility] Last Admin: 12/15/16 06:43 Dose: 3 ml Aspirin (Halfprin) 81 mg PO DAILY [facility] Last Admin: 12/15/16 08:21 Dose: 81 mg Atorvastatin Calcium (Lipitor) 10 mg PO BEDTIME [facility] Last Admin: 12/14/16 23:49 Dose: Not Given Calcium Citrate (Calcitrate + Vit D Cap (315 Mg/250 Units)) 1 each PO DAILY [facility] Last Admin: 12/15/16 08:23 Dose: 1 each Divalproex Sodium (Depakote Sprinkle) 250 mg PO BID [facility] Last Admin: 12/15/16 08:22 Dose: 250 mg Docusate Sodium (Colace) 100 mg PO BID [facility] Last Admin: 12/15/16 08:23 Dose: 100 mg Donepezil HCl (Aricept) 5 mg PO BEDTIME [facility] Last Admin: 12/14/16 23:49 Dose: Not Given Dorzolamide HCl (Trusopt 2% Ophth Soln) 0 ml EYEBOTH BID [facility] Last Admin: 12/15/16 08:23 Dose: 1 drop Cefepime HCl 1 gm/ Premix 50 mls @ 100 mls/hr IV Q12H [facility] Last Admin: 12/14/16 23:46 Dose: 100 mls/hr Sodium Chloride (Normal Saline) 1,000 mls @ 100 mls/hr IV ASDIRECTED [facility] Last Admin: 12/15/16 08:37 Dose: 100 mls/hr Vancomycin HCl 1.25 gm/ Sodium (Chloride) 250 mls @ 166.667 mls/hr IV Q12H [facility] Levofloxacin/Dextrose 750 mg/ (Premix) 150 mls @ 100 mls/hr IV Q24H [facility] Levetiracetam (Keppra) 500 mg PO BID [facility] Last Admin: 12/15/16 08:22 Dose: 500 mg Levothyroxine Sodium (Synthroid) 100 mcg PO ACBREAKFAST [facility] Last Admin: 12/15/16 06:43 Dose: 100 mcg Magnesium Hydroxide (Milk Of Magnesia) 30 ml PO DAILY PRN PRN Reason: Constipation Melatonin (Melatonin) 9 mg PO BEDTIME [facility] Last Admin: 12/14/16 23:49 Dose: Not Given Methylprednisolone Sodium Succinate (Solu-Medrol) 125 mg IVPUSH Q6H [facility] Last Admin: 12/15/16 08:23 Dose: 125 mg Multivitamins/Minerals (Thera M Plus) 1 tab PO DAILY [facility] Last Admin: 12/15/16 08:21 Dose: 1 tab Polyethylene Glycol (Miralax) 17 gm PO Q48H [facility] Last Admin: 12/15/16 08:41 Dose: 17 gm Risperidone (Risperidal) 1 mg PO TID [facility] Last Admin: 12/15/16 06:44 Dose: 1 mg Sodium Chloride (Saline Flush) 10 ml FLUSH ASDIRECTED PRN PRN Reason: Keep Vein Open Sodium Chloride (Saline Flush) 2.5 ml FLUSH ASDIRECTED PRN PRN Reason: Keep Vein Open Sodium Chloride (Saline Flush) 10 ml FLUSH ASDIRECTED PRN PRN Reason: Keep Vein Open Sodium Chloride (Saline Flush) 2.5 ml FLUSH ASDIRECTED PRN PRN Reason: Keep Vein Open Vancomycin HCl (Pharmacy To Dose - Vancomycin) 1 dose .XX ASDIRECTED [facility] Discontinued Medications Albuterol/Ipratropium (Duoneb 3.0-0.5 Mg/3 Ml) 3 ml NEB ONETIME ONE Stop: 12/10/16 15:14 Last Admin: 12/10/16 15:32 Dose: 3 ml Sodium Chloride (Normal Saline) 500 mls @ 999 mls/hr IV .Bolus ONE Stop: 12/10/16 15:42 Last Admin: 12/10/16 16:35 Dose: 999 mls/hr Levofloxacin/Dextrose 500 mg/ (Premix) 100 mls @ 100 mls/hr IV ONETIME ONE Stop: 12/10/16 18:00 Last Admin: 12/10/16 17:20 Dose: 100 mls/hr Cefepime HCl 1 gm/ Premix 50 mls @ 100 mls/hr IV Q8H [facility] Last Admin: 12/10/16 22:49 Dose: 100 mls/hr Levofloxacin/Dextrose 750 mg/ (Premix) 150 mls @ 100 mls/hr IV Q48H [facility] Last Admin: 12/14/16 18:43 Dose: 100 mls/hr Vancomycin HCl 1 gm/ Sodium (Chloride) 250 mls @ 166 mls/hr IV Q1H [facility] Stop: 12/11/16 00:59 Last Admin: 12/10/16 23:27 Dose: 166 mls/hr Vancomycin HCl 1.25 gm/ Sodium (Chloride) 250 mls @ 166.667 mls/hr IV Q24H [facility] Last Admin: 12/15/16 00:28 Dose: 166.667 mls/hr Vancomycin HCl 1 gm/ Sodium (Chloride) 250 mls @ 166 mls/hr IV Q1H [facility] Stop: 12/11/16 01:59 Last Admin: 12/11/16 01:07 Dose: 166 mls/hr Potassium Chloride/Sodium Chloride (Normal Saline With 20 Meq Kcl) 1,000 mls @ 100 mls/hr IV ASDIRECTED [facility] Sodium Chloride (Sodium Chloride 0.45%) 1,000 mls @ 100 mls/hr IV ASDIRECTED [facility] Last Admin: 12/12/16 06:21 Dose: 100 mls/hr Sodium Chloride (Sodium Chloride 0.45%) 1,000 mls @ 50 mls/hr IV ASDIRECTED [facility] Last Admin: 12/12/16 17:23 Dose: 50 mls/hr Magnesium Citrate (Citrate Of Magnesia) 296 ml PO ONETIME ONE Stop: 12/14/16 09:08 Last Admin: 12/14/16 10:18 Dose: Not Given Magnesium Hydroxide (Milk Of Magnesia) 30 ml PO ONETIME [facility] Stop: 12/14/16 09:05 Last Admin: 12/14/16 10:18 Dose: Not Given Non-Formulary Medication (Lanolin/Min Oil/Petrolatum) 1 applic EYEBOTH BID [facility] Last Admin: 12/10/16 23:27 Dose: Not Given - Exam Quality Assessment: supplemental oxygen General: alert, cooperative. No: oriented Lungs: Rhonchi (bilaterally, did clear some with cough) Cardiovascular: Regular Rate, Regular Rhythm Extremities: no edema, normal pulses Neurological: no new focal deficit Psy/Mental Status: alert, normal affect, normal mood - Problem List & Annotations (1) Dehydration SNOMED Code(s): 16471401 Code(s): E86.0 - DEHYDRATION Status: Acute Current Visit: Yes (2) Electrolyte abnormality SNOMED Code(s): 794924679 Code(s): E87.8 - OTH DISORDERS OF ELECTROLYTE AND FLUID BALANCE, NEC Status : Acute Current Visit: Yes (3) Failure to thrive SNOMED Code(s): 00810149 Code(s): MWG2876 - Status: Acute Current Visit: Yes Qualifiers: Failure to thrive age range: in adult Qualified Code(s): R62.7 - Adult failure to thrive (4) Pneumonia SNOMED Code(s): 438981082 Code(s): J18.9 - PNEUMONIA, UNSPECIFIED ORGANISM Status: Acute Current Visit: Yes (5) Altered mental status, unspecified SNOMED Code(s): 239304352 Code(s): R41.82 - ALTERED MENTAL STATUS, UNSPECIFIED Status: Resolved Current Visit: No Qualifiers: Altered mental status type: unspecified Qualified Code(s): R41.82 - Altered mental status, unspecified (6) Alzheimer's dementia SNOMED Code(s): 20497488 Code(s): G30.9 - ALZHEIMER'S DISEASE, UNSPECIFIED Status: Chronic Current Visit: No Qualifiers: Alzheimer's disease onset: unspecified onset Dementia behavioral disturbance: with behavioral disturbance Qualified Code(s): G30.8 - Other Alzheimer's disease; F02.81 - Dementia in other diseases classified elsewhere with behavioral disturbance (7) COPD (chronic obstructive pulmonary disease) SNOMED Code(s): 23829769 Code(s): J44.9 - CHRONIC OBSTRUCTIVE PULMONARY DISEASE, UNSPECIFIED Status : Chronic Current Visit: No Qualifiers: COPD type: COPD with acute lower respiratory infection Qualified Code(s): J44.0 - Chronic obstructive pulmonary disease with acute lower respiratory infection (8) Depression SNOMED Code(s): 35817990 Code(s): F32.9 - MAJOR DEPRESSIVE DISORDER, SINGLE EPISODE, UNSPECIFIED Status: Chronic Current Visit: No Qualifiers: Depression Type: unspecified Qualified Code(s): F32.9 - Major depressive disorder, single episode, unspecified (9) HLD (hyperlipidemia) SNOMED Code(s): 38381791 Code(s): E78.5 - HYPERLIPIDEMIA, UNSPECIFIED Status: Chronic Current Visit: No Qualifiers: Hyperlipidemia type: Pure hypercholesterolemia (10) HTN (hypertension) SNOMED Code(s): 69871401 Code(s): I10 - ESSENTIAL (PRIMARY) HYPERTENSION Status: Chronic Current Visit: No Qualifiers: Hypertension type: essential hypertension Qualified Code(s): I10 - Essential (primary) hypertension (11) Hypothyroidism SNOMED Code(s): 97148922 Code(s): E03.9 - HYPOTHYROIDISM, UNSPECIFIED Status: Chronic Current Visit: No Qualifiers: Hypothyroidism type: unspecified Qualified Code(s): E03.9 - Hypothyroidism , unspecified - Problem List Review Problem List Initiated/Reviewed/Updated: Yes - My Orders Last 24 Hours: My Active Orders 12/15/16 10:06 Consult to Speech Language Pathology [LICENSED PROFESSIONAL COUNSELOR Evaluation and Treatment] [CONS] Routine - Plan Plan:: admit antibiotics DNR Tommy Ortega MD 12/11/2016 I believe that he has a clinical pneumonia. Will cover for suspected health care associated pneumonia. add 1/2 ns monitor electrolytes. Tommy Ortega MD 12/12/2016 continue present care Na trending down somewhat. watch closely for signs of volume overload. Anil Ortega MD 12/13/16 anticipate discharge back to [place] tomorrow IV to saline lock Tommy Ortega MD 12/14/2016 tachypnea noted. I believe that he also has a flair of COPD. Will add solumedrol. Mg citrate for constipation Tommy Ortega MD 12/14/2016 I think a stroke is likely but in view of his advanced dementia I do not recommend aggressive ijntervention. Supportive care will be given for now and will observe to see if he has any recovery. Tommy Ortega MD 12.15.2016 1. Health care associated PNA: Has Hx of ESBL E coli in his sputum, chest x ray , revealed increased Will monitor closely. Given some Solumedrol for Rhonchi and suspected COPD. Not wheezing this am. Will discontinue. 2. CVA Vs. TIA: Symptoms resolved. L sided weakness improved. Questionable dysphagia. Will have ST consult. 3. HTN: Holding Lasix and Telmisartan. Monitor. Stable at this time. 4. Hx Alzheimer's dementia: Continue Risperidone and Aricept. VTE: SCDs, hx of gross hematuria in recent past. DIspo: 1-2 days pending improvement.
--- NOTE | 2016-12-15 10:42 | PCM.SN ---
- Free Text/Narrative Note: I called and spoke with his daughter Fior ([phone]) . I advised that he is more response today with resolution of his hemiparesis. See Lali Dwyer's , ENGINEERING PRODUCTION WORKER note. Will check swallow eval. Change to meropenum as per Lali Dwyer's note. Anticipated discharge to [facility] tomorrow. Fior aware. In the event of aspiration on swallow evaluation, no feeding tube recommended. Tommy Ortega MD
[2016-12-15] MEDS ORDERED: Meropenem 1 GM in Sodium Chloride 0.9% 100 ML IV SCH (10:45)
[2016-12-15] MEDS: Meropenem 1 GM in Sodium Chloride 0.9% 100 ML IV SCH ×2 (11:15→18:00)
--- NOTE | 2016-12-15 14:58 | CT ---
EXAM DATE: 12/10/16 PATIENT'S AGE: 86 Patient: ANTIONE SAHU Facility: [facility] Site . Site : [id number] Study: CT-Head [id number]/[id number] 5:20:47 PM Ordering Physician: Shannon Sanders Final Report: INDICATIONS: Right-sided weakness. TECHNIQUE: CT head without contrast. COMPARISON: CT head 06/11/2016. FINDINGS: Generalized cerebral atrophy, changes of chronic small vessel ischemic disease and remote bilateral lacunar infarcts as before. Calcifications in the bilateral basal ganglia. No mass effect, midline shift or hydrocephalus. No CT evidence of acute hemorrhage or infarction. No abnormal extra-axial fluid collection. Intracranial atherosclerosis. Bone windows show no acute abnormality. Partial opacification of the left sphenoid sinus. Orbits are unremarkable. IMPRESSION: No acute intracranial abnormality. Cerebral atrophy and changes of chronic small vessel ischemic disease. Dictated by Vel Pereyra MD @ 12/14/2016 5:58:47 PM Dictated by: Vel Pereyra MD @ 12/14/2016 17:58:56 Signed by: Vel Pereyra MD @12/14/2016 5:58:56 PM (Electronic Signature) Report Signed by Proxy. [facility]
--- NOTE | 2016-12-15 15:00 | CR ---
EXAMINATION: Portable chest radiograph. HISTORY: Pneumonia. FINDINGS: The trachea is midline. The cardiomediastinal silhouette is within normal limits. Grossly stable bib asilar atelectasis/infiltrate. No pleural effusion or pneumothorax. Left humerus hardware noted. IMPRESSION: Grossly stable bibasilar atelectasis/infiltrate.
[2016-12-15] MEDS ORDERED: Levofloxacin/Dextrose 5%-Water 750 MG in Premix Bag 1 BAG IV SCH (18:00)
[2016-12-15] MEDS: atorvaSTATin 10 MG Tab PO SCH (21:54)
[2016-12-15] MEDS: Donepezil 5 MG Tab PO SCH (21:54)
[2016-12-15] MEDS: Melatonin 3 MG Tab PO SCH (21:55)
[2016-12-16] MEDS: Meropenem 1 GM in Sodium Chloride 0.9% 100 ML IV SCH (02:43)
[2016-12-16] MEDS: Albuterol/Ipratropium 3.0-0.5 MG/3 ML Neb Soln NEB SCH ×2 (05:56→11:11)
[2016-12-16] MEDS: risperiDONE 1 MG Tab PO SCH (06:30)
[2016-12-16] MEDS: Levothyroxine 100 MCG Tab PO SCH (06:30)
[2016-12-16 08:22] LABS: CHLORIDE,CL 112 mmol/L (98-110); SODIUM,NA 142 mmol/L (136-146)
[2016-12-16] MEDS: Docusate Sodium 100 MG Cap PO SCH (08:49)
[2016-12-16] MEDS: levETIRAcetam 500 MG Tab PO SCH (08:49)
[2016-12-16] MEDS: Aspirin 81 MG Tab.EC PO SCH (08:49)
[2016-12-16] MEDS: Divalproex Sodium Delayed-Release 125 MG Cap.Sprink PO SCH (08:49)
[2016-12-16] MEDS: Dorzolamide 2% Ophth Soln 10 ML Bottle EYEBOTH SCH (08:57)
[2016-12-16] MEDS ORDERED: Bisacodyl 10 MG Supp RECTAL PRN (09:12)
[2016-12-16] MEDS: Multivitamins with Iron/Calcium/Folic Acid/Minerals Tab PO SCH (10:09)
[2016-12-16] MEDS: Calcium Citrate/Vitamin D3 Tablet PO SCH (10:10)
[2016-12-16] MEDS ORDERED: Ertapenem 1 GM in Sodium Chloride 0.9% 50 ML IV ONE (10:18)
[2016-12-16] MEDS ORDERED: Ertapenem 1 GM Vial IM ONE (10:23)
--- NOTE | 2016-12-16 10:32 | PCM.DCSUM1 ---
Discharge Summary - Hospital Course Brief History: This 86 year old male resident of [place] with pmh of Alzheimer's dementia, ESBL Ecoli in urine and sputum, and HTN presented to the ED on with dyspnea and poor appetite. He was noted to have a leukocytosis, electrolyte disturbance, and pneumonia. - Discharge Data Discharge Date: 12/16/16 Discharge Disposition: DC/Tfer to SNF 03 Condition: Good - Discharge Diagnosis/Problem(s) (1) Dehydration SNOMED Code(s): 05618495 ICD Code: E86.0 - DEHYDRATION Status: Resolved Current Visit: Yes (2) Electrolyte abnormality SNOMED Code(s): 167565178 ICD Code: E87.8 - OTH DISORDERS OF ELECTROLYTE AND FLUID BALANCE, NEC Status: Resolved Current Visit: Yes (3) Failure to thrive SNOMED Code(s): 99666749 ICD Code: [id number] - Status: Resolved Current Visit: Yes Qualifiers: Failure to thrive age range: in adult Qualified Code(s): R62.7 - Adult failure to thrive (4) Pneumonia SNOMED Code(s): 145115480 ICD Code: J18.9 - PNEUMONIA, UNSPECIFIED ORGANISM Status: Acute Current Visit: Yes Qualifiers: Aspiration pneumonia type: unspecified Laterality: bilateral Lung location: lower lobe of lung (5) Altered mental status, unspecified SNOMED Code(s): 304396139 ICD Code: R41.82 - ALTERED MENTAL STATUS, UNSPECIFIED Status: Resolved Current Visit: No Qualifiers: Altered mental status type: unspecified Qualified Code(s): R41.82 - Altered mental status, unspecified (6) Alzheimer's dementia SNOMED Code(s): 64323945 ICD Code: G30.9 - ALZHEIMER'S DISEASE, UNSPECIFIED Status: Chronic Current Visit: No Qualifiers: Alzheimer's disease onset: unspecified onset Dementia behavioral disturbance: with behavioral disturbance Qualified Code(s): G30.8 - Other Alzheimer's disease; F02.81 - Dementia in other diseases classified elsewhere with behavioral disturbance (7) COPD (chronic obstructive pulmonary disease) SNOMED Code(s): 80973421 ICD Code: J44.9 - CHRONIC OBSTRUCTIVE PULMONARY DISEASE, UNSPECIFIED Status : Chronic Current Visit: No Qualifiers: COPD type: COPD with acute lower respiratory infection Qualified Code(s): J44.0 - Chronic obstructive pulmonary disease with acute lower respiratory infection (8) Depression SNOMED Code(s): 55968951 ICD Code: F32.9 - MAJOR DEPRESSIVE DISORDER, SINGLE EPISODE, UNSPECIFIED Status: Chronic Current Visit: No Qualifiers: Depression Type: unspecified Qualified Code(s): F32.9 - Major depressive disorder, single episode, unspecified (9) HLD (hyperlipidemia) SNOMED Code(s): 20662167 ICD Code: E78.5 - HYPERLIPIDEMIA, UNSPECIFIED Status: Chronic Current Visit: No Qualifiers: Hyperlipidemia type: Pure hypercholesterolemia (10) HTN (hypertension) SNOMED Code(s): 61558374 ICD Code: I10 - ESSENTIAL (PRIMARY) HYPERTENSION Status: Chronic Current Visit: No Qualifiers: Hypertension type: essential hypertension Qualified Code(s): I10 - Essential (primary) hypertension (11) Hypothyroidism SNOMED Code(s): 65971903 ICD Code: E03.9 - HYPOTHYROIDISM, UNSPECIFIED Status: Chronic Current Visit: No Qualifiers: Hypothyroidism type: unspecified Qualified Code(s): E03.9 - Hypothyroidism , unspecified - Patient Summary/Data Consults: Consultations 12/15/16 10:06 Consult to Speech Language Pathology [[employer] Evaluation and Treatment] [CONS] Routine - Patient Instructions Diet: Pureed (nectar thick liquids) Activity: As Tolerated Showering/Bathing: May Shower Notify Provider of: Fever, Increased Pain, Swelling and Redness, Drainage, Nausea and/or Vomiting Other/Special Instructions: Speech Therapy consult if available. - Discharge Plan Prescriptions/Med Rec: Ertapenem [INVanz] 1 gm IM DAILY #8 vial traZODone 25 mg PO TID #25 tablet Home Medications: Home Meds Acetaminophen [Tylenol Extra Strength] 1,000 mg PO Q6H PRN 06/09/15 [History] Docusate Sodium 100 mg PO BID 06/09/15 [History] Magnesium Hydroxide [Milk of Magnesia] 30 ml PO Q24H PRN 06/09/15 [History] Multivitamin with Minerals [Multivitamins with Minerals] 1 each PO DAILY [History] Polyethylene Glycol 3350 [MiraLAX] 17 gm PO Q48H 06/09/15 [History] Propylene Glycol/Peg 400 [Systane 0.3-0.4% Eye Drops] 1 drop EYELF QID 06/09/15 [History] risperiDONE [Risperdal] 1 mg PO TID 06/09/15 [History] Calcium Citrate/Vitamin D3 [Calcium Cit-Vit D 315-200] 1 each PO DAILY 12/19/15 [History] Dorzolamide [Trusopt 2% Ophth Soln] 1 drop EYEBOTH BID 12/19/15 [History] Furosemide [Lasix] 20 mg PO DAILY 12/19/15 [History] Levothyroxine [Synthroid] 125 mcg PO ACBREAKFAST 12/19/15 [History] Telmisartan 20 mg PO BID 12/19/15 [History] levETIRAcetam [Keppra] 500 mg PO BID 12/19/15 [History] Donepezil [Aricept] 10 mg PO BEDTIME 06/11/16 [History] atorvaSTATin [Lipitor] 10 mg PO BEDTIME 06/11/16 [History] Mineral Oil/Petrolatum,White [Artificial Tears Eye Ointment] 1 applic EYEBOTH BID 06/12/16 [History] Potassium Chloride [Klor-Con] 10 meq PO DAILY 06/12/16 [History] Aspirin [Ecotrin] 81 mg PO WITHBREAKFAST 09/25/16 [History] Atropine 1% [Isopto Atropine 1% Oph Soln] 1 - 2 drop SL Q1H PRN 09/25/16 [ History] Bisacodyl [Dulcolax] 10 mg RECTAL Q24H PRN 09/25/16 [History] Dextromethorphan Polistirex [Delsym] 10 ml PO Q12H PRN 09/25/16 [History] Divalproex Sodium [Depakote Sprinkle] 750 mg PO BID 09/25/16 [History] Albuterol/Ipratropium [DuoNeb 3.0-0.5 MG/3 ML] 3 ml IH Q6H PRN 10/20/16 [History ] Levalbuterol HCl [Levalbuterol Concentrate] 1.25 mg IH Q6H PRN 10/20/16 [History ] Acetaminophen [Tylenol Extra Strength] 500 mg PO BID 12/16/16 [History] Ertapenem [INVanz] 1 gm IM DAILY #8 vial 12/16/16 [Rx] traZODone 25 mg PO TID #25 tablet 12/16/16 [Rx] Patient Handouts: Trazodone tablets, Ertapenem injection, Dehydration, Elderly , Community-Acquired Pneumonia, Adult, [id number] Referrals: Erza Casper MD [Physician] - 12/22/16 (follow up on next [place] rounds) - Discharge Summary/Plan Comment DC Time >30 min.: No Discharge Summary/Plan Comment: Discharge diagnoses Aspiration pneumonia Alzheimer's dementia Hx ESBL E. Coli in sputum and urine. HTN COPD Alfonso was admitted and treated with broad spectrum antibiotics for clinical pneumonia considered aspiration with Vancomycin Levaquin and Zozyn. No cultures were obtained. He gradually improved, due to history of ESBL E. Coli, he was changed to Meropenem and improved nicely. UA was negative. He was noted to have some wheezing and started on Solumedrol x 1 day, this subsided and Solumedrol was discontinued. He was weaned from oxygen and has been more alert the last 24 hours. Over the weekend there was question of a CVA vs. TIA, nursing noted a L sided facial droop and weakness to L arm. Head CT was completed which revealed no acute intracranila abnormality, it did no cerebral atrophy and changes of chronic small vessel ischemic disease. MRI was no pursued after Dr. Ortega discussion with daughter. Symptoms resolved quickly and today he was up ambulating with assist of 1-[address] did assess swallow function, but was not able to finish her assessment due to Alfonso not following commands. She suggested changed diet to Regular pureed with nectar think liquids and crushing medications with applesauce. He is sating 93% on RA and LS CL. Will discharge back to [place] this afternoon. I will continue Ertapenem 1 gm IM daily for aspiration pneumonia and due to hx of ESBL E. coli in sputum. Slight leukocytosis remains, which is likely secondary to steroid administration 1 day prior. Daughter at bedside and updated on treatment plan. I will notify Dr Casper of transfer back to [place]. - General Info Date of Service: 12/16/16 Admission Dx/Problem (Free Text: Admission Diagnosis/Problem Admission Diagnosis/Problem Failure to thrive in adult Subjective Update: This morning Alfonso was up ambulating per self into another room. He was alert and oriented to self, he followed commands. He reports he is feeling better after urinating. Denies any pain. He was guided back to his room with assistance of 2 nurses. Functional Status: Reports: pain controlled, tolerating diet, ambulating, urinating - Review of Systems General: Reports: No Symptoms. Denies: Fever, Weakness HEENT: Reports: no symptoms. Denies: sinus congestion, sore throat Pulmonary: Reports: no symptoms. Denies: shortness of breath, cough, sputum Cardiovascular: Reports: No Symptoms. Denies: Chest Pain, Palpitations, Edema Gastrointestinal: Reports: No symptoms. Denies: Abdominal pain, Nausea, Vomiting Genitourinary: Reports: no symptoms Musculoskeletal: Reports: no symptoms Skin: Reports: no symptoms Neurological: Reports: No Symptoms Psychiatric: Reports: no symptoms - Patient Data Vitals - Most Recent: Last Vital Signs Temp 98.6 F 12/16/16 08:00 Pulse 69 12/16/16 08:00 Resp 18 12/16/16 08:00 BP 162/92 H 12/16/16 08:00 Pulse Ox 96 12/16/16 08:00 Weight - Most Recent: 84 kg I&O - Last 24 hours: Intake & Output 12/15/16 12/16/16 12/16/16 22:59 06:59 14:59 Intake Total 390 300 Output Total 421 Balance 390 -121 Lab Results - Last 24 hrs: Laboratory Results - last 24 hr 12/16/16 12/16/16 Range/Units 07:45 07:45 WBC 14.69 H (4.0-11.0) K/uL RBC 4.15 L (4.50-5.90) M/uL Hgb 10.7 L (13.0-17.0) g/dL Hct 34.5 L (38.0-50.0) % MCV 83.1 (80.0-98.0) fL MCH 25.8 L (27.0-32.0) pg MCHC 31.0 (31.0-37.0) g/dL RDW Std Deviation 52.2 (28.0-62.0) fl RDW Coeff of Rowdy 17 H (11.0-15.0) % Plt Count 325 (150-400) K/uL MPV 10.80 (7.40-12.00) fL Add Manual Diff YES Neutrophils % (Manual) 83 H (48.0-80.0) % Band Neutrophils % 4 % Lymphocytes % (Manual) 13 L (16.0-40.0) % Nucleated RBC % 0.0 /100WBC Absolute Seg Neuts 12.2 Band Neutrophils # 0.6 Lymphocytes # (Manual) 1.9 Nucleated RBCs # 0 K/uL Sodium 142 (136-146) mmol/L Potassium 3.8 (3.5-5.1) mmol/L Chloride 112 H (98-110) mmol/L Carbon Dioxide 22 (21-31) mmol/L BUN 38 H (6.0-23.0) mg/dL Creatinine 0.8 (0.6-1.5) mg/dL Est Cr Clr Drug Dosing 61.82 mL/min Estimated GFR (MDRD) > 60.0 ml/min Glucose 121 H (60-110) mg/dL Calcium 8.6 L (8.8-10.8) mg/dL Med Orders - Current: Current Medications Albuterol/Ipratropium (Duoneb 3.0-0.5 Mg/3 Ml) 3 ml NEB Q6HRRT [facility] Last Admin: 12/16/16 05:56 Dose: 3 ml Aspirin (Halfprin) 81 mg PO DAILY [facility] Last Admin: 12/16/16 08:49 Dose: 81 mg Atorvastatin Calcium (Lipitor) 10 mg PO BEDTIME [facility] Last Admin: 12/15/16 21:54 Dose: 10 mg Bisacodyl (Dulcolax) 10 mg RECTAL DAILY PRN PRN Reason: Constipation Last Admin: 12/16/16 10:10 Dose: 10 mg Calcium Citrate (Calcitrate + Vit D Cap (315 Mg/250 Units)) 1 each PO DAILY [facility] Last Admin: 12/16/16 10:10 Dose: 1 each Divalproex Sodium (Depakote Sprinkle) 750 mg PO BID [facility] Docusate Sodium (Colace) 100 mg PO BID [facility] Last Admin: 12/16/16 08:49 Dose: 100 mg Donepezil HCl (Aricept) 10 mg PO BEDTIME [facility] Dorzolamide HCl (Trusopt 2% Ophth Soln) 0 ml EYEBOTH BID [facility] Last Admin: 12/16/16 08:57 Dose: 1 drop Ertapenem 1 gm/ Sodium (Chloride) 50 mls @ 100 mls/hr IV ONETIME ONE Stop: 12/16/16 10:47 Levetiracetam (Keppra) 500 mg PO BID [facility] Last Admin: 12/16/16 08:49 Dose: 500 mg Levothyroxine Sodium (Levothyroxine) 125 mcg PO ACBREAKFAST [facility] Magnesium Hydroxide (Milk Of Magnesia) 30 ml PO DAILY PRN PRN Reason: Constipation Melatonin (Melatonin) 9 mg PO BEDTIME [facility] Last Admin: 12/15/16 21:55 Dose: 9 mg Multivitamins/Minerals (Thera M Plus) 1 tab PO DAILY [facility] Last Admin: 12/16/16 10:09 Dose: 1 tab Polyethylene Glycol (Miralax) 17 gm PO Q48H [facility] Last Admin: 12/15/16 08:41 Dose: 17 gm Risperidone (Risperidal) 1 mg PO TID [facility] Last Admin: 12/16/16 06:30 Dose: 1 mg Sodium Chloride (Saline Flush) 10 ml FLUSH ASDIRECTED PRN PRN Reason: Keep Vein Open Sodium Chloride (Saline Flush) 2.5 ml FLUSH ASDIRECTED PRN PRN Reason: Keep Vein Open Discontinued Medications Albuterol/Ipratropium (Duoneb 3.0-0.5 Mg/3 Ml) 3 ml NEB ONETIME ONE Stop: 12/10/16 15:14 Last Admin: 12/10/16 15:32 Dose: 3 ml Divalproex Sodium (Depakote Sprinkle) 250 mg PO BID [facility] Last Admin: 12/16/16 08:49 Dose: 250 mg Donepezil HCl (Aricept) 5 mg PO BEDTIME [facility] Last Admin: 12/15/16 21:54 Dose: 5 mg Sodium Chloride (Normal Saline) 500 mls @ 999 mls/hr IV .Bolus ONE Stop: 12/10/16 15:42 Last Admin: 12/10/16 16:35 Dose: 999 mls/hr Levofloxacin/Dextrose 500 mg/ (Premix) 100 mls @ 100 mls/hr IV ONETIME ONE Stop: 12/10/16 18:00 Last Admin: 12/10/16 17:20 Dose: 100 mls/hr Cefepime HCl 1 gm/ Premix 50 mls @ 100 mls/hr IV Q8H [facility] Last Admin: 12/10/16 22:49 Dose: 100 mls/hr Levofloxacin/Dextrose 750 mg/ (Premix) 150 mls @ 100 mls/hr IV Q48H [facility] Last Admin: 12/14/16 18:43 Dose: 100 mls/hr Vancomycin HCl 1 gm/ Sodium (Chloride) 250 mls @ 166 mls/hr IV Q1H [facility] Stop: 12/11/16 00:59 Last Admin: 12/10/16 23:27 Dose: 166 mls/hr Vancomycin HCl 1.25 gm/ Sodium (Chloride) 250 mls @ 166.667 mls/hr IV Q24H [facility] Last Admin: 12/15/16 00:28 Dose: 166.667 mls/hr Cefepime HCl 1 gm/ Premix 50 mls @ 100 mls/hr IV Q12H [facility] Last Admin: 12/14/16 23:46 Dose: 100 mls/hr Vancomycin HCl 1 gm/ Sodium (Chloride) 250 mls @ 166 mls/hr IV Q1H [facility] Stop: 12/11/16 01:59 Last Admin: 12/11/16 01:07 Dose: 166 mls/hr Potassium Chloride/Sodium Chloride (Normal Saline With 20 Meq Kcl) 1,000 mls @ 100 mls/hr IV ASDIRECTED [facility] Sodium Chloride (Sodium Chloride 0.45%) 1,000 mls @ 100 mls/hr IV ASDIRECTED [facility] Last Admin: 12/12/16 06:21 Dose: 100 mls/hr Sodium Chloride (Sodium Chloride 0.45%) 1,000 mls @ 50 mls/hr IV ASDIRECTED [facility] Last Admin: 12/12/16 17:23 Dose: 50 mls/hr Sodium Chloride (Normal Saline) 1,000 mls @ 100 mls/hr IV ASDIRECTED [facility] Last Admin: 12/15/16 08:37 Dose: 100 mls/hr Vancomycin HCl 1.25 gm/ Sodium (Chloride) 250 mls @ 166.667 mls/hr IV Q12H [facility] Levofloxacin/Dextrose 750 mg/ (Premix) 150 mls @ 100 mls/hr IV Q24H [facility] Meropenem 1 gm/ Sodium (Chloride) 100 mls @ 200 mls/hr IV Q8H [facility] Last Admin: 12/15/16 10:53 Dose: Not Given Meropenem 1 gm/ Sodium (Chloride) 100 mls @ 200 mls/hr IV Q8H [facility] Last Admin: 12/16/16 02:43 Dose: 200 mls/hr Levothyroxine Sodium (Synthroid) 100 mcg PO ACBREAKFAST [facility] Last Admin: 12/16/16 06:30 Dose: 100 mcg Magnesium Citrate (Citrate Of Magnesia) 296 ml PO ONETIME ONE Stop: 12/14/16 09:08 Last Admin: 12/14/16 10:18 Dose: Not Given Magnesium Hydroxide (Milk Of Magnesia) 30 ml PO ONETIME ONE Stop: 12/14/16 09:05 Last Admin: 12/14/16 10:18 Dose: Not Given Methylprednisolone Sodium Succinate (Solu-Medrol) 125 mg IVPUSH Q6H [facility] Last Admin: 12/15/16 08:23 Dose: 125 mg Non-Formulary Medication (Lanolin/Min Oil/Petrolatum) 1 applic EYEBOTH BID [facility] Last Admin: 12/10/16 23:27 Dose: Not Given Sodium Chloride (Saline Flush) 10 ml FLUSH ASDIRECTED PRN PRN Reason: Keep Vein Open Sodium Chloride (Saline Flush) 2.5 ml FLUSH ASDIRECTED PRN PRN Reason: Keep Vein Open Vancomycin HCl (Pharmacy To Dose - Vancomycin) 1 dose .XX ASDIRECTED [facility] - Exam General: Reports: alert, cooperative. Denies: oriented (only to self) Neck: Reports: supple Lungs: Reports: Clear to auscultation, Normal respiratory effort Cardiovascular: Reports: Regular Rate, Regular Rhythm Abdomen: Reports: bowel sounds present, soft, no tenderness, no distension Extremities: Reports: no edema, normal pulses Skin: Reports: warm, dry Neurological: Reports: no new focal deficit Psy/Mental Status: Reports: alert, normal affect, normal mood *Q Meaningful Use (DIS) - VTE *Q VTE Criteria *Q: - Stroke *Q Stroke Criteria *Q: - AMI *Q AMI Criteria *Q:
[2016-12-16 12:43] VITALS: BP 120/62
[2016-12-16] MEDS ORDERED: Divalproex Sodium Delayed-Release 125 MG Cap.Sprink PO SCH (21:00)
[2016-12-16] MEDS ORDERED: Donepezil 5 MG Tab PO SCH (21:00)
[2016-12-17] MEDS ORDERED: Levothyroxine 125 MCG Tab PO SCH (07:30)
== END 2016-12-16 13:55 | DRG 194 ==
LOC: MW.ED 14:52 → MW.MS 17:04
PROVIDERS: ADMIT Family Medicine; ATTEND Family Medicine
DX: J18.9 Pneumonia, unspecified organism (principal); F02.81 Dementia in other diseases classified elsewhere, unspecified severity, with behavioral disturbance; R62.7 Adult failure to thrive; E86.0 Dehydration; J44.9 Chronic obstructive pulmonary disease, unspecified; E03.9 Hypothyroidism, unspecified; I10 Essential (primary) hypertension; E78.00 Pure hypercholesterolemia, unspecified; Z87.01 Personal history of pneumonia (recurrent); K59.09 Other constipation; R13.10 Dysphagia, unspecified; R53.1 Weakness; G30.9 Alzheimer's disease, unspecified; F32.9 Major depressive disorder, single episode, unspecified; H40.9 Unspecified glaucoma; Z66 Do not resuscitate; Z79.82 Long term (current) use of aspirin; Z79.899 Other long term (current) drug therapy; Z88.0 Allergy status to penicillin; B96.20 Unspecified Escherichia coli [E. coli] as the cause of diseases classified elsewhere; R41.82 Altered mental status, unspecified; R29.810 Facial weakness
CPT/HCPCS: 36415; 71010; 80053; 85025; 94664; 96361; 99285; J7040; 70450; 70450-26; 80048; 80202; 83735; 92610-GN; 94640; 96360; 96365; A9270-GY; J0692; J1335; J1956; J2185; J2930; J3370; J7030; J7050

== ENCOUNTER 2017-02-21 07:46 | Emergency (ER) | payer MEDICARE, OTHER ==
[2017-02-21 08:05] VITALS: BP 125/83
[2017-02-21] MEDS ORDERED: Diphtheria,Pertussis(Acell),Tetanus Vaccine 0.5 ML Syringe IM ONE (08:09)
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
== END 2017-02-21 08:27 | disposition home or self-care (01) ==
LOC: MW.ED 07:46
DX: S61.215A Laceration without foreign body of left ring finger without damage to nail, initial encounter (principal); S00.33XA Contusion of nose, initial encounter; G30.9 Alzheimer's disease, unspecified; F02.80 Dementia in other diseases classified elsewhere, unspecified severity, without behavioral disturbance, psychotic disturbance, mood disturbance, and anxiety; I10 Essential (primary) hypertension; E03.9 Hypothyroidism, unspecified; J44.9 Chronic obstructive pulmonary disease, unspecified; Z87.440 Personal history of urinary (tract) infections; Z23 Encounter for immunization; Z88.8 Allergy status to other drugs, medicaments and biological substances; E78.00 Pure hypercholesterolemia, unspecified; Z79.899 Other long term (current) drug therapy; Z79.82 Long term (current) use of aspirin; Z88.0 Allergy status to penicillin; X58.XXXA Exposure to other specified factors, initial encounter
CPT/HCPCS: 90471; 90715; 99282; 99284-25

== ENCOUNTER 2017-08-01 06:49 | Inpatient (IN) | payer MEDICARE, OTHER ==
[2017-08-01] MEDS ORDERED: Bacitracin Oint 1 GM U/D Packet TOP ONE (06:54)
[2017-08-01] MEDS ORDERED: Sodium Chloride 0.9% 10 ML Syringe FLUSH PRN (07:14)
[2017-08-01] MEDS ORDERED: Levofloxacin/Dextrose 5%-Water 750 MG in Premix Bag 1 BAG IV ONE (07:14)
[2017-08-01] MEDS ORDERED: Sodium Chloride 0.9% 2.5 ML Syringe FLUSH PRN (07:14)
[2017-08-01] MEDS ORDERED: cefTRIAXone 1 GM in Premix Bag 1 BAG IV ONE (07:20)
[2017-08-01] MEDS ORDERED: Furosemide 40 MG/4 ML VIAL IVPUSH ONE (07:20)
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
[2017-08-01 08:06] LABS: CHLORIDE,CL 108 mmol/L (98-110); SODIUM,NA 140 mmol/L (136-146)
[2017-08-01] MEDS ORDERED: LORazepam 2 MG/ML MDV ONE (08:57)
[2017-08-01] MEDS ORDERED: LORazepam 2 MG/ML MDV IVPUSH ONE (09:00)
[2017-08-01] MEDS ORDERED: Ziprasidone Mesylate 20 MG in Water For Injection, Sterile 1.2 ML IM ONE (09:34)
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
[2017-08-01] MEDS ORDERED: Albuterol/Ipratropium 3.0-0.5 MG/3 ML Neb Soln NEB PRN (13:38)
[2017-08-01] MEDS ORDERED: Docusate Sodium 100 MG Cap PO PRN (13:38)
[2017-08-01] MEDS ORDERED: Ondansetron 4 MG Tab.DIS PO PRN (13:38)
[2017-08-01] MEDS ORDERED: Acetaminophen 325 MG Tab PO PRN (13:38)
[2017-08-01] MEDS ORDERED: Levofloxacin/Dextrose 5%-Water 750 MG in Premix Bag 1 BAG IV SCH (14:30)
[2017-08-01] MEDS: Cefepime 2 GM in Premix Bag 1 BAG IV SCH ×2 (14:44→22:40)
[2017-08-01] MEDS ORDERED: OLANZapine 10 MG Vial IM ONE (15:45)
[2017-08-01] MEDS ORDERED: Haloperidol Lactate 5 MG/ML SDV IM PRN (15:53)
[2017-08-01] MEDS: levETIRAcetam 500 MG Tab PO SCH ×2 (17:48→20:08)
[2017-08-01] MEDS: risperiDONE 1 MG Tab PO SCH ×2 (17:48→20:08)
[2017-08-01] MEDS ORDERED: fentaNYL 12 MCG/HR Transdermal Patch TRDERM SCH (19:00)
[2017-08-01] MEDS: Propylene Glycol/Peg 400 [Systane 0.3-0.4% Eye Drops] 1 DROP EYELF SCH (20:01)
[2017-08-02] MEDS: Propylene Glycol/Peg 400 [Systane 0.3-0.4% Eye Drops] 1 DROP EYELF SCH ×4 (00:25→17:04)
[2017-08-02] MEDS: Cefepime 2 GM in Premix Bag 1 BAG IV SCH ×3 (05:30→21:50)
[2017-08-02 07:02] LABS: CHLORIDE,CL 108 mmol/L (98-110); SODIUM,NA 139 mmol/L (136-146)
[2017-08-02] MEDS: Levothyroxine 125 MCG Tab PO SCH (08:01)
[2017-08-02] MEDS: risperiDONE 1 MG Tab PO SCH ×2 (08:01→19:59)
[2017-08-02] MEDS: levETIRAcetam 500 MG Tab PO SCH ×2 (08:01→19:59)
[2017-08-02] MEDS: Enoxaparin 40 MG/0.4 ML Syringe SUBCUT SCH (08:07)
--- NOTE | 2017-08-02 11:42 | PCM.PN ---
- Review of Systems Systems Review Comment:: patient denies pain, resting comfortable in recliner - Patient Data Vitals - Most Recent: Last Vital Signs Temp 37.0 C 08/02/17 08:00 Pulse 95 08/02/17 08:00 Resp 15 08/02/17 08:00 BP 122/78 08/02/17 08:00 Pulse Ox 95 08/02/17 08:00 Weight - Most Recent: 83.96 kg I&O - Last 24 Hours: Intake & Output 08/01/17 08/02/17 08/02/17 22:59 06:59 14:59 Intake Total 800 587 250 Output Total 1500 Balance -700 587 250 Lab Results Last 24 Hours: Laboratory Results - last 24 hr 08/02/17 08/02/17 Range/Units 06:38 06:38 WBC 9.12 (4.0-11.0) K/uL RBC 3.71 L (4.50-5.90) M/uL Hgb 11.3 L (13.0-17.0) g/dL Hct 34.9 L (38.0-50.0) % MCV 94.1 (80.0-98.0) fL MCH 30.5 (27.0-32.0) pg MCHC 32.4 (31.0-37.0) g/dL RDW Std Deviation 46.9 (28.0-62.0) fl RDW Coeff of Rowdy 14 (11.0-15.0) % Plt Count 269 (150-400) K/uL MPV 9.80 (7.40-12.00) fL Neut % (Auto) 67.6 (48.0-80.0) % Lymph % (Auto) 18.4 (16.0-40.0) % [place] % (Auto) 8.9 (0.0-15.0) % Eos % (Auto) 4.6 (0.0-7.0) % Baso % (Auto) 0.5 (0.0-1.5) % Neut # (Auto) 6.2 H (1.4-5.7) K/uL Lymph # (Auto) 1.7 (0.6-2.4) K/uL [place] # (Auto) 0.8 (0.0-0.8) K/uL Eos # (Auto) 0.4 (0.0-0.7) K/uL Baso # (Auto) 0.1 (0.0-0.1) K/uL Nucleated RBC % 0.0 /100WBC Nucleated RBCs # 0 K/uL Sodium 139 (136-146) mmol/L Potassium 4.3 (3.5-5.1) mmol/L Chloride 108 (98-110) mmol/L Carbon Dioxide 26 (21-31) mmol/L BUN 34 H (6.0-23.0) mg/dL Creatinine 1.1 (0.6-1.5) mg/dL Est Cr Clr Drug Dosing 41.92 mL/min Estimated GFR (MDRD) > 60.0 ml/min Glucose 93 (60-110) mg/dL Calcium 8.5 L (8.8-10.8) mg/dL Magnesium 1.4 L (1.5-2.3) mEq/L Med Orders - Current: Current Medications Acetaminophen (Tylenol) 650 mg PO Q4H PRN PRN Reason: Pain (Mild 1-3)/fever Albuterol/Ipratropium (Duoneb 3.0-0.5 Mg/3 Ml) 3 ml NEB Q4HRRT PRN PRN Reason: Shortness Of Breath/wheezing Docusate Sodium (Colace) 100 mg PO BID PRN PRN Reason: Constipation Enoxaparin Sodium (Lovenox) 40 mg SUBCUT DAILY [facility] Last Admin: 08/02/17 08:07 Dose: 40 mg Fentanyl (Duragesic) 12 mcg TRDERM Q72H [facility] Last Admin: 08/01/17 20:09 Dose: 12 mcg Haloperidol Lactate (Haldol) 2 mg IM Q8H PRN PRN Reason: Agitation Cefepime HCl 2 gm/ Premix 50 mls @ 100 mls/hr IV Q8H [facility] Last Admin: 08/02/17 05:30 Dose: 100 mls/hr Levofloxacin/Dextrose 750 mg/ (Premix) 150 mls @ 100 mls/hr IV Q48H [facility] Last Admin: 08/01/17 16:28 Dose: 100 mls/hr Vancomycin HCl 1 gm/ Sodium (Chloride) 250 mls @ 166.667 mls/hr IV Q12H [facility] Last Admin: 08/02/17 08:02 Dose: 166.667 mls/hr Levetiracetam (Keppra) 500 mg PO BID [facility] Last Admin: 08/02/17 08:01 Dose: 500 mg Levothyroxine Sodium (Levothyroxine) 187.5 mcg PO MOFR@0730 [facility] Levothyroxine Sodium (Levothyroxine) 125 mcg PO SUTUWETHSA@0730 [facility] Last Admin: 08/02/17 08:01 Dose: 125 mcg Ondansetron HCl (Zofran Odt) 4 mg PO Q6H PRN PRN Reason: nausea, able to take PO Propylene Glycol/Peg 400 [Systane 0.3-0. 4% Eye Drops] 1 Drop 1 each EYELF QID [facility] Last Admin: 08/02/17 11:04 Dose: Not Given Risperidone (Risperidal) 1 mg PO BID [facility] Last Admin: 08/02/17 08:01 Dose: 1 mg Sodium Chloride (Saline Flush) 10 ml FLUSH ASDIRECTED PRN PRN Reason: Keep Vein Open Sodium Chloride (Saline Flush) 2.5 ml FLUSH ASDIRECTED PRN PRN Reason: Keep Vein Open Vancomycin HCl (Pharmacy To Dose - Vancomycin) 1 dose .XX ASDIRECTED [facility] Discontinued Medications Furosemide (Lasix) 40 mg IVPUSH NOW ONE Stop: 08/01/17 07:21 Last Admin: 08/01/17 08:21 Dose: 40 mg Vancomycin HCl 1 gm/ Sodium (Chloride) 250 mls @ 250 mls/hr IV ONETIME ONE Stop: 08/01/17 08:13 Last Admin: 08/01/17 08:23 Dose: 250 mls/hr Ceftriaxone Sodium/Dextrose 1 (gm/ Premix) 50 mls @ 100 mls/hr IV ONETIME ONE Stop: 08/01/17 07:49 Last Admin: 08/01/17 07:45 Dose: 100 mls/hr Ziprasidone 20 mg/ Sterile (Water) 1.2 mls @ 1 mls/sec IM ONETIME ONE Stop: 08/01/17 09:35 Last Admin: 08/01/17 09:55 Dose: 1 mls/sec Lorazepam (Ativan) Confirm Administered Dose 2 mg .ROUTE .STK-MED ONE Stop: 08/01/17 08:58 Last Admin: 08/01/17 09:01 Dose: Not Given Lorazepam (Ativan) 0.5 mg IVPUSH ONETIME ONE Stop: 08/01/17 09:01 Last Admin: 08/01/17 09:00 Dose: 0.5 mg Olanzapine (Zyprexa) 5 mg IM ONETIME ONE Stop: 08/01/17 15:46 Last Admin: 08/01/17 15:46 Dose: 5 mg - Exam General: Alert, Oriented Lungs: Normal Respiratory Effort, Rhonchi Cardiovascular: Regular Rate, Regular Rhythm GI/Abdominal Exam: Soft, Non-Tender Extremities: No Pedal Edema Skin: Warm, Dry, Intact - Problem List Review Problem List Initiated/Reviewed/Updated: Yes - Plan Plan:: 87 year old admitted for pneumonia and uti UTI/pneumonia -treating with cefepime/Levaquin/Vancomycin -1/ BC growing gram positive cocci #Seizure Disorder -resume home keppra #Dementia/delerium -resume home risperidone -prn haldol
[2017-08-02] MEDS: OLANZapine 10 MG Vial IM PRN (17:03)
[2017-08-03] MEDS: Cefepime 2 GM in Premix Bag 1 BAG IV SCH (05:32)
[2017-08-03] MEDS: Propylene Glycol/Peg 400 [Systane 0.3-0.4% Eye Drops] 1 DROP EYELF SCH ×4 (06:41→23:08)
[2017-08-03 07:11] LABS: CHLORIDE,CL 111 mmol/L (98-110); SODIUM,NA 143 mmol/L (136-146)
[2017-08-03] MEDS ORDERED: Levothyroxine 125 MCG Tab PO SCH (07:30)
[2017-08-03] MEDS: levETIRAcetam 500 MG Tab PO SCH ×3 (08:31→20:47)
[2017-08-03] MEDS: Enoxaparin 40 MG/0.4 ML Syringe SUBCUT SCH (08:31)
[2017-08-03] MEDS: risperiDONE 1 MG Tab PO SCH ×3 (08:31→20:47)
[2017-08-03] MEDS: Meropenem 1 GM in Sodium Chloride 0.9% 100 ML IV SCH ×2 (13:02→23:07)
--- NOTE | 2017-08-03 15:20 | PCM.PN ---
- Review of Systems Systems Review Comment:: denies pain. - Patient Data Vitals - Most Recent: Last Vital Signs Temp 36.2 C 08/03/17 11:45 Pulse 104 H 08/03/17 11:45 Resp 20 08/03/17 11:45 BP 127/83 08/03/17 11:45 Pulse Ox 94 L 08/03/17 11:45 Weight - Most Recent: 78.97 kg I&O - Last 24 Hours: Intake & Output 08/03/17 08/03/17 08/03/17 06:59 14:59 22:59 Intake Total 120 250 Balance 120 250 Lab Results Last 24 Hours: Laboratory Results - last 24 hr 08/03/17 08/03/17 08/03/17 Range/Units 06:24 06:24 06:24 WBC 9.37 (4.0-11.0) K/uL RBC 3.66 L (4.50-5.90) M/uL Hgb 11.1 L (13.0-17.0) g/dL Hct 34.2 L (38.0-50.0) % MCV 93.4 (80.0-98.0) fL MCH 30.3 (27.0-32.0) pg MCHC 32.5 (31.0-37.0) g/dL RDW Std Deviation 46.6 (28.0-62.0) fl RDW Coeff of Rowdy 14 (11.0-15.0) % Plt Count 259 (150-400) K/uL MPV 10.20 (7.40-12.00) fL Neut % (Auto) 64.7 (48.0-80.0) % Lymph % (Auto) 20.3 (16.0-40.0) % [place] % (Auto) 8.1 (0.0-15.0) % Eos % (Auto) 6.4 (0.0-7.0) % Baso % (Auto) 0.5 (0.0-1.5) % Neut # (Auto) 6.1 H (1.4-5.7) K/uL Lymph # (Auto) 1.9 (0.6-2.4) K/uL [place] # (Auto) 0.8 (0.0-0.8) K/uL Eos # (Auto) 0.6 (0.0-0.7) K/uL Baso # (Auto) 0.1 (0.0-0.1) K/uL Nucleated RBC % 0.0 /100WBC Nucleated RBCs # 0 K/uL Sodium 143 (136-146) mmol/L Potassium 4.0 (3.5-5.1) mmol/L Chloride 111 H (98-110) mmol/L Carbon Dioxide 24 (21-31) mmol/L BUN 31 H (6.0-23.0) mg/dL Creatinine 0.9 (0.6-1.5) mg/dL Est Cr Clr Drug Dosing 51.24 mL/min Estimated GFR (MDRD) > 60.0 ml/min Glucose 103 (60-110) mg/dL Calcium 8.5 L (8.8-10.8) mg/dL Vancomycin Trough 16.0 H (5-15) ug/mL Med Orders - Current: Current Medications Acetaminophen (Tylenol) 650 mg PO Q4H PRN PRN Reason: Pain (Mild 1-3)/fever Albuterol/Ipratropium (Duoneb 3.0-0.5 Mg/3 Ml) 3 ml NEB Q4HRRT PRN PRN Reason: Shortness Of Breath/wheezing Docusate Sodium (Colace) 100 mg PO BID PRN PRN Reason: Constipation Enoxaparin Sodium (Lovenox) 40 mg SUBCUT DAILY [facility] Last Admin: 08/03/17 08:31 Dose: 40 mg Fentanyl (Duragesic) 12 mcg TRDERM Q72H [facility] Last Admin: 08/01/17 20:09 Dose: 12 mcg Meropenem 1 gm/ Sodium (Chloride) 100 mls @ 200 mls/hr IV Q8H [facility] Last Admin: 08/03/17 13:02 Dose: 200 mls/hr Levetiracetam (Keppra) 500 mg PO BID [facility] Last Admin: 08/03/17 08:31 Dose: 500 mg Levothyroxine Sodium (Levothyroxine) 187.5 mcg PO MOFR@30 [facility] Last Admin: 08/03/17 06:44 Dose: 187.5 mcg Levothyroxine Sodium (Levothyroxine) 125 mcg PO SUTUWETHSA@0730 [facility] Last Admin: 08/02/17 08:01 Dose: 125 mcg Olanzapine (Zyprexa) 5 mg IM Q6H PRN PRN Reason: Agitation Last Admin: 08/02/17 17:03 Dose: 5 mg Ondansetron HCl (Zofran Odt) 4 mg PO Q6H PRN PRN Reason: nausea, able to take PO Propylene Glycol/Peg 400 [Systane 0.3-0. 4% Eye Drops] 1 Drop 1 each EYELF QID [facility] Last Admin: 08/03/17 11:44 Dose: Not Given Risperidone (Risperidal) 1 mg PO BID [facility] Last Admin: 08/03/17 08:31 Dose: 1 mg Sodium Chloride (Saline Flush) 10 ml FLUSH ASDIRECTED PRN PRN Reason: Keep Vein Open Sodium Chloride (Saline Flush) 2.5 ml FLUSH ASDIRECTED PRN PRN Reason: Keep Vein Open Discontinued Medications Furosemide (Lasix) 40 mg IVPUSH NOW ONE Stop: 08/01/17 07:21 Last Admin: 08/01/17 08:21 Dose: 40 mg Haloperidol Lactate (Haldol) 2 mg IM Q8H PRN PRN Reason: Agitation Vancomycin HCl 1 gm/ Sodium (Chloride) 250 mls @ 250 mls/hr IV ONETIME ONE Stop: 08/01/17 08:13 Last Admin: 08/01/17 08:23 Dose: 250 mls/hr Ceftriaxone Sodium/Dextrose 1 (gm/ Premix) 50 mls @ 100 mls/hr IV ONETIME ONE Stop: 08/01/17 07:49 Last Admin: 08/01/17 07:45 Dose: 100 mls/hr Ziprasidone 20 mg/ Sterile (Water) 1.2 mls @ 1 mls/sec IM ONETIME ONE Stop: 08/01/17 09:35 Last Admin: 08/01/17 09:55 Dose: 1 mls/sec Cefepime HCl 2 gm/ Premix 50 mls @ 100 mls/hr IV Q8H [facility] Last Admin: 08/03/17 05:32 Dose: 100 mls/hr Levofloxacin/Dextrose 750 mg/ (Premix) 150 mls @ 100 mls/hr IV Q48H [facility] Last Admin: 08/01/17 16:28 Dose: 100 mls/hr Vancomycin HCl 1 gm/ Sodium (Chloride) 250 mls @ 166.667 mls/hr IV Q12H [facility] Last Admin: 08/03/17 08:19 Dose: 166.667 mls/hr Lorazepam (Ativan) Confirm Administered Dose 2 mg .ROUTE .STK-MED ONE Stop: 08/01/17 08:58 Last Admin: 08/01/17 09:01 Dose: Not Given Lorazepam (Ativan) 0.5 mg IVPUSH ONETIME ONE Stop: 08/01/17 09:01 Last Admin: 08/01/17 09:00 Dose: 0.5 mg Olanzapine (Zyprexa) 5 mg IM ONETIME ONE Stop: 08/01/17 15:46 Last Admin: 08/01/17 15:46 Dose: 5 mg Vancomycin HCl (Pharmacy To Dose - Vancomycin) 1 dose .XX ASDIRECTED [facility] - Exam General: No Acute Distress Lungs: Normal Respiratory Effort, Rhonchi Cardiovascular: Regular Rate, Regular Rhythm GI/Abdominal Exam: Soft, Non-Tender Extremities: Non-Tender, No Pedal Edema Skin: Warm, Dry, Intact - Problem List Review Problem List Initiated/Reviewed/Updated: Yes - My Orders Last 24 Hours: My Active Orders 08/03/17 12:30 Meropenem [Merrem] 1 gm Sodium Chloride 0.9% [Normal Saline] 100 ml IV Q8H 08/02/17 14:24 OLANZapine [ZyPREXA] 5 mg IM Q6H PRN - Plan Plan:: 87 year old admitted for pneumonia and uti UTI/pneumonia -switching to meropenum and continuing vancomycin -1/ BC growing gram positive cocci -Urine culture growing ESBL ecoli -Sputum normal respiratory russell #Seizure Disorder -resume home keppra #Dementia/delerium -resume home risperidone -prn haldol
[2017-08-03] MEDS: OLANZapine 10 MG Vial IM PRN (23:28)
[2017-08-04] MEDS: Meropenem 1 GM in Sodium Chloride 0.9% 100 ML IV SCH ×2 (04:14→11:57)
[2017-08-04] MEDS: OLANZapine 10 MG Vial IM PRN (04:44)
[2017-08-04 06:09] LABS: CHLORIDE,CL 108 mmol/L (98-110); SODIUM,NA 139 mmol/L (136-146)
[2017-08-04] MEDS: Propylene Glycol/Peg 400 [Systane 0.3-0.4% Eye Drops] 1 DROP EYELF SCH ×2 (06:14→12:04)
[2017-08-04] MEDS: Levothyroxine 125 MCG Tab PO SCH (06:33)
[2017-08-04] MEDS: Enoxaparin 40 MG/0.4 ML Syringe SUBCUT SCH (08:11)
[2017-08-04] MEDS: risperiDONE 1 MG Tab PO SCH (08:12)
[2017-08-04] MEDS: levETIRAcetam 500 MG Tab PO SCH (08:12)
[2017-08-04] MEDS ORDERED: Polyethylene Glycol 3350 Powder 17 GM Packet PO PRN (10:03)
--- NOTE | 2017-08-04 11:41 | PCM.DCSUM1 ---
Discharge Summary - Hospital Course Free Text/Narrative:: 87 year old male with history of dementia was admitted 08/01/17 for ESBL UTI and Pneumonia. Due to his advanced dementia he required constant supervision and [place]on PRN for sedation. Due to his ESBL he was treated with Meropenem IV. By 08/04/17 his WBC count had resolved and clinically he returned back to his baseline. He was discharged back to [facility] on Ertapenem 1 gm IM QD for 12 days. His PCP is Dr. Casper who will resume that role. Discharge instruction 1. Ertapenem 1 gm IM QD for 12 days 2. resume regular diet 3. Dr. Casper will resume care as PCP 4. Resume all previous medications - Discharge Data Discharge Date: 08/04/17 Discharge Disposition: DC/Tfer to [facility] 03 Condition: Fair - Patient Instructions Diet: Usual Diet as Tolerated Activity: As Tolerated Notify Provider of: Fever, Swelling and Redness, Drainage, Nausea and/or Vomiting Other/Special Instructions: 1. Patient will require Ertapenem 1 gm IM daily for 12 days - for ESBL UTI, prescription was provided. 2. Patient may resume his usual diet as tolerated - Discharge Plan Prescriptions/Med Rec: Ertapenem [INVanz] 1 gm IM DAILY 12 Days #12 dose Home Medications: Home Meds Acetaminophen [Tylenol Extra Strength] 1,000 mg PO Q6H PRN 06/09/15 [History] Docusate Sodium 100 mg PO BID 06/09/15 [History] Magnesium Hydroxide [Milk of Magnesia] 30 ml PO Q24H PRN 06/09/15 [History] Polyethylene Glycol 3350 [MiraLAX] 17 gm PO Q48H 06/09/15 [History] Propylene Glycol/Peg 400 [Systane 0.3-0.4% Eye Drops] 1 drop EYELF QID 06/09/15 [History] risperiDONE [Risperdal] 1 mg PO BID 06/09/15 [History] Dorzolamide [Trusopt 2% Ophth Soln] 1 drop EYEBOTH BID 12/19/15 [History] Furosemide [Lasix] 20 mg PO DAILY 12/19/15 [History] Telmisartan 20 mg PO BID 12/19/15 [History] levETIRAcetam [Keppra] 500 mg PO BID 12/19/15 [History] Potassium Chloride [Klor-Con] 10 meq PO DAILY 06/12/16 [History] Atropine 1% [Isopto Atropine 1% Ophth Soln] 1 - 2 drop SL Q1H PRN 09/25/16 [ History] Bisacodyl [Dulcolax] 10 mg RECTAL Q24H PRN 09/25/16 [History] Dextromethorphan Polistirex [Delsym] 10 ml PO Q12H PRN 09/25/16 [History] Albuterol/Ipratropium [DuoNeb 3.0-0.5 MG/3 ML] 3 ml IH Q6H PRN 10/20/16 [History ] Levalbuterol HCl [Levalbuterol Concentrate] 1.25 mg IH Q6H PRN 10/20/16 [History ] Acetaminophen [Tylenol Extra Strength] 500 mg PO BID 12/16/16 [History] Ibuprofen 400 mg PO Q6HR PRN 02/21/17 [History] Levothyroxine 125 mcg PO SUTUWETHSA@0730 08/01/17 [History] Levothyroxine 187.5 mcg PO MOFR@0730 08/01/17 [History] fentaNYL [Duragesic] 12 mcg TRDERM Q72H 08/01/17 [History] Aspirin 81 mg PO DAILY 08/04/17 [History] Ertapenem [INVanz] 1 gm IM DAILY 12 Days #12 dose 08/04/17 [Rx] Mineral Oil/Petrolatum,White [Artificial Tears Eye Ointment] 1 applic EYEBOTH BID 08/04/17 [History] Referrals: Ezra Casper MD [Primary Care Provider] - - Patient Data Vitals - Most Recent: Last Vital Signs Temp 36.6 C 08/04/17 08:00 Pulse 92 08/04/17 08:00 Resp 24 H 08/04/17 08:00 BP 137/68 08/04/17 08:00 Pulse Ox 95 08/04/17 08:00 Weight - Most Recent: 80.966 kg I&O - Last 24 hours: Intake & Output 08/03/17 08/04/17 08/04/17 22:59 06:59 14:59 Intake Total 1290 340 Balance 1290 340 Lab Results - Last 24 hrs: Laboratory Results - last 24 hr 08/04/17 08/04/17 08/04/17 Range/Units 05:20 05:20 09:49 WBC 6.68 (4.0-11.0) K/uL RBC 3.76 L (4.50-5.90) M/uL Hgb 11.5 L (13.0-17.0) g/dL Hct 34.9 L (38.0-50.0) % MCV 92.8 (80.0-98.0) fL MCH 30.6 (27.0-32.0) pg MCHC 33.0 (31.0-37.0) g/dL RDW Std Deviation 44.9 (28.0-62.0) fl RDW Coeff of Rowdy 13 (11.0-15.0) % Plt Count 239 (150-400) K/uL MPV 10.30 (7.40-12.00) fL Neut % (Auto) 55.7 (48.0-80.0) % Lymph % (Auto) 24.3 (16.0-40.0) % [place] % (Auto) 10.2 (0.0-15.0) % Eos % (Auto) 9.4 H (0.0-7.0) % Baso % (Auto) 0.4 (0.0-1.5) % Neut # (Auto) 3.7 (1.4-5.7) K/uL Lymph # (Auto) 1.6 (0.6-2.4) K/uL [place] # (Auto) 0.7 (0.0-0.8) K/uL Eos # (Auto) 0.6 (0.0-0.7) K/uL Baso # (Auto) 0.0 (0.0-0.1) K/uL Nucleated RBC % 0.0 /100WBC Nucleated RBCs # 0 K/uL Sodium 139 (136-146) mmol/L Potassium 3.9 (3.5-5.1) mmol/L Chloride 108 (98-110) mmol/L Carbon Dioxide 24 (21-31) mmol/L BUN 23 (6.0-23.0) mg/dL Creatinine 0.8 (0.6-1.5) mg/dL Est Cr Clr Drug Dosing 57.65 mL/min Estimated GFR (MDRD) > 60.0 ml/min Glucose 90 (60-110) mg/dL Calcium 8.5 L (8.8-10.8) mg/dL Urine Color YELLOW Urine Appearance CLEAR Urine pH 6.0 (5.0-8.0) Ur Specific [place] 1.025 (1.001-1.035) Urine Protein 30 (NEGATIVE) mg/dL Urine Glucose (UA) NEGATIVE (NEGATIVE) mg/dL Urine Ketones TRACE H (NEGATIVE) mg/dL Urine Occult Blood LARGE H (NEGATIVE) Urine Nitrite NEGATIVE (NEGATIVE) Urine Bilirubin NEGATIVE (NEGATIVE) Urine Urobilinogen 0.2 (<2.0) EU/dL Ur Leukocyte Esterase TRACE (NEGATIVE) Urine RBC 25-30 (0-2/HPF) Urine WBC 2-3 (0-5/HPF) Ur Epithelial Cells OCCASIONAL (NONE-FEW) Urine Bacteria RARE (NEGATIVE) Med Orders - Current: Current Medications Acetaminophen (Tylenol) 650 mg PO Q4H PRN PRN Reason: Pain (Mild 1-3)/fever Albuterol/Ipratropium (Duoneb 3.0-0.5 Mg/3 Ml) 3 ml NEB Q4HRRT PRN PRN Reason: Shortness Of Breath/wheezing Docusate Sodium (Colace) 100 mg PO BID PRN PRN Reason: Constipation Enoxaparin Sodium (Lovenox) 40 mg SUBCUT DAILY [facility] Last Admin: 08/04/17 08:11 Dose: 40 mg Fentanyl (Duragesic) 12 mcg TRDERM Q72H [facility] Last Admin: 08/01/17 20:09 Dose: 12 mcg Vancomycin HCl 1 gm/ Sodium (Chloride) 250 mls @ 166.667 mls/hr IV Q12H [facility] Last Admin: 08/04/17 08:11 Dose: 166.667 mls/hr Meropenem 1 gm/ Sodium (Chloride) 100 mls @ 200 mls/hr IV Q8H [facility] Last Admin: 08/04/17 04:14 Dose: 200 mls/hr Levetiracetam (Keppra) 500 mg PO BID [facility] Last Admin: 08/04/17 08:12 Dose: 500 mg Levothyroxine Sodium (Levothyroxine) 187.5 mcg PO MOFR@0730 [facility] Last Admin: 08/03/17 06:44 Dose: 187.5 mcg Levothyroxine Sodium (Levothyroxine) 125 mcg PO SUTUWETHSA@0730 [facility] Last Admin: 08/04/17 06:33 Dose: 125 mcg Olanzapine (Zyprexa) 5 mg IM Q6H PRN PRN Reason: Agitation Last Admin: 08/04/17 04:44 Dose: 5 mg Ondansetron HCl (Zofran Odt) 4 mg PO Q6H PRN PRN Reason: nausea, able to take PO Propylene Glycol/Peg 400 [Systane 0.3-0. 4% Eye Drops] 1 Drop 1 each EYELF QID [facility] Last Admin: 08/04/17 06:14 Dose: Not Given Polyethylene Glycol (Miralax) 17 gm PO BID PRN PRN Reason: Constipation Last Admin: 08/04/17 10:28 Dose: 17 gm Risperidone (Risperidal) 1 mg PO BID [facility] Last Admin: 08/04/17 08:12 Dose: 1 mg Sodium Chloride (Saline Flush) 10 ml FLUSH ASDIRECTED PRN PRN Reason: Keep Vein Open Sodium Chloride (Saline Flush) 2.5 ml FLUSH ASDIRECTED PRN PRN Reason: Keep Vein Open Vancomycin HCl (Pharmacy To Dose - Vancomycin) 1 dose .XX ASDIRECTED [facility] Discontinued Medications Furosemide (Lasix) 40 mg IVPUSH NOW ONE Stop: 08/01/17 07:21 Last Admin: 08/01/17 08:21 Dose: 40 mg Haloperidol Lactate (Haldol) 2 mg IM Q8H PRN PRN Reason: Agitation Vancomycin HCl 1 gm/ Sodium (Chloride) 250 mls @ 250 mls/hr IV ONETIME ONE Stop: 08/01/17 08:13 Last Admin: 08/01/17 08:23 Dose: 250 mls/hr Ceftriaxone Sodium/Dextrose 1 (gm/ Premix) 50 mls @ 100 mls/hr IV ONETIME ONE Stop: 08/01/17 07:49 Last Admin: 08/01/17 07:45 Dose: 100 mls/hr Ziprasidone 20 mg/ Sterile (Water) 1.2 mls @ 1 mls/sec IM ONETIME ONE Stop: 08/01/17 09:35 Last Admin: 08/01/17 09:55 Dose: 1 mls/sec Cefepime HCl 2 gm/ Premix 50 mls @ 100 mls/hr IV Q8H [facility] Last Admin: 08/03/17 05:32 Dose: 100 mls/hr Levofloxacin/Dextrose 750 mg/ (Premix) 150 mls @ 100 mls/hr IV Q48H [facility] Last Admin: 08/01/17 16:28 Dose: 100 mls/hr Lorazepam (Ativan) Confirm Administered Dose 2 mg .ROUTE .STK-MED ONE Stop: 08/01/17 08:58 Last Admin: 08/01/17 09:01 Dose: Not Given Lorazepam (Ativan) 0.5 mg IVPUSH ONETIME ONE Stop: 08/01/17 09:01 Last Admin: 08/01/17 09:00 Dose: 0.5 mg Olanzapine (Zyprexa) 5 mg IM ONETIME ONE Stop: 08/01/17 15:46 Last Admin: 08/01/17 15:46 Dose: 5 mg Vancomycin HCl (Pharmacy To Dose - Vancomycin) 1 dose .XX ASDIRECTED GAIL *Q Meaningful Use (DIS) - VTE *Q VTE Criteria *Q: - Stroke *Q Stroke Criteria *Q: - AMI *Q AMI Criteria *Q:
[2017-08-04 12:22] VITALS: BP 108/68
--- NOTE | 2017-08-04 17:40 | CR ---
EXAM DATE: 08/01/17 PATIENT'S AGE: 87 Patient: ANTIONE SAHU Facility: [place], [place] Site . Site : 1930 Study: XRay Chest [id number]/30/[id number] 8:14:38 AM Ordering Physician: Evelio Romero Final Report: INDICATION: sob HISTORY: Shortness of breath. COMPARISON: 12/15/2016. TECHNIQUE: Chest one-view portable. FINDINGS: Airspace opacities of both lung bases, which could represent atelectasis or less likely pneumonia. Similar findings were present previously. Small left pleural effusion, with blunting of the left lateral costophrenic sulcus. Partially visualized shoulder arthroplasties. Pulmonary hyperinflation. There is no pneumothorax. Osseous structures are intact. IMPRESSION: 1. Airspace opacities in both lungs, similar to previous. 2. Atelectasis is favored over pneumonia. Dictated by Demario Norris MD @ 08/01/2017 8:18:55 AM Dictated by: Demario Norris MD @ 08/01/2017 08:19:01 (Electronic Signature) Report Signed by Proxy. [facility]
== END 2017-08-04 13:50 | DRG 689 ==
LOC: MW.ED 06:49 → MW.MS 10:15 → EEVIPCON 10:15
PROVIDERS: ADMIT Internal Medicine; ATTEND Internal Medicine
DX: N39.0 Urinary tract infection, site not specified (principal); J69.0 Pneumonitis due to inhalation of food and vomit; J15.6 Pneumonia due to other Gram-negative bacteria; B96.20 Unspecified Escherichia coli [E. coli] as the cause of diseases classified elsewhere; R31.9 Hematuria, unspecified; I10 Essential (primary) hypertension; J44.9 Chronic obstructive pulmonary disease, unspecified; E03.9 Hypothyroidism, unspecified; Z66 Do not resuscitate; G30.9 Alzheimer's disease, unspecified; F02.80 Dementia in other diseases classified elsewhere, unspecified severity, without behavioral disturbance, psychotic disturbance, mood disturbance, and anxiety; G40.909 Epilepsy, unspecified, not intractable, without status epilepticus; R06.00 Dyspnea, unspecified; I50.9 Heart failure, unspecified; Z88.0 Allergy status to penicillin; Z88.8 Allergy status to other drugs, medicaments and biological substances; Z79.899 Other long term (current) drug therapy; E78.00 Pure hypercholesterolemia, unspecified
CPT/HCPCS: 36600; 71010; 80053; 81001; 82803; 83605; 83880; 84484; 85025; 85610; 87040 ×2; 87070; 87086; 87088; 87186 ×2; 87205; 87804 ×2; 96365; 96367; 96372; 96375; 99285; J0696; J1940; J2060; J3370; J3486; J7050; 36415; 80048; 80202; 83735; 87077; 93005; A9270-GY; J0692; J1650; J1956; J2185; J7030

== ENCOUNTER 2017-08-23 20:13 | Inpatient (IN) | payer MEDICARE, OTHER ==
[~2017-08-23 20:13] MED LIST: Naloxone 0.4 MG/ML Syringe ONE
[2017-08-23] MEDS ORDERED: methylPREDNISolone Sodium Succinate 125 MG/2 ML SDV IVPUSH ONE (20:14)
[2017-08-23] MEDS ORDERED: Furosemide 40 MG/4 ML VIAL IVPUSH ONE (20:14)
[2017-08-23] MEDS ORDERED: Albuterol/Ipratropium 3.0-0.5 MG/3 ML Neb Soln NEB ONE (20:14)
[2017-08-23] MEDS ORDERED: Naloxone 0.4 MG/ML Syringe IVPUSH ONE (20:15)
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
[2017-08-23] MEDS: Sodium Chloride 0.9% 1,000 ML IV SCH (20:46)
[2017-08-23 20:58] LABS: CHLORIDE,CL 107 mmol/L (98-110); SODIUM,NA 140 mmol/L (136-146)
[2017-08-23] MEDS ORDERED: Levofloxacin/Dextrose 5%-Water 500 MG in Premix Bag 1 BAG IV ONE (21:43)
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
[2017-08-24] MEDS: Meropenem 1 GM in Sodium Chloride 0.9% 100 ML IV SCH ×4 (00:11→23:42)
[2017-08-24] MEDS ORDERED: Meropenem 1 GM in Sodium Chloride 0.9% 100 ML IV SCH ×3 (00:45)
[2017-08-24] MEDS ORDERED: Vancomycin 500 MG SDV IV ONE (02:05)
[2017-08-24] MEDS ORDERED: Sodium Chloride 0.9% 1,000 ML IV ONE (03:35)
[2017-08-24] MEDS ORDERED: Albuterol 0.083% 2.5 MG/3 ML Neb Soln NEB ONE (03:50)
[2017-08-24] MEDS: Albuterol/Ipratropium 3.0-0.5 MG/3 ML Neb Soln NEB SCH ×3 (06:01→18:12)
[2017-08-24 06:12] LABS: CHLORIDE,CL 108 mmol/L (98-110); SODIUM,NA 141 mmol/L (136-146)
[2017-08-24] MEDS ORDERED: Enoxaparin 40 MG/0.4 ML Syringe SUBCUT SCH ×2 (08:00→09:00)
[2017-08-24] MEDS: Sodium Chloride 0.9% 1,000 ML IV SCH ×2 (08:18→17:22)
--- NOTE | 2017-08-24 14:21 | PCM.PN ---
- General Info Date of Service: 08/24/17 Admission Dx/Problem (Free Text): 87-year-old male with a history of dementia, chronic UTI with Escherichia coli, gross hematuria that was admitted yesterday with altered mental status. Evaluation patient today's morning, patient still appears to be altered. However , nurses I do have a bit of familiarity with the patient indicated that this is close to his baseline. Patient was admitted for pneumonia and urinary tract infection. He is back to his 2 L of nasal cannula which is his baseline for oxygen supplementation. Patient's family member was at his bedside. - Patient Data Vitals - Most Recent: Last Vital Signs Temp 36.3 C 08/24/17 04:00 Pulse 96 08/23/17 20:35 Resp 25 H 08/24/17 10:00 BP 127/52 L 08/24/17 10:00 Pulse Ox 95 08/24/17 10:00 Weight - Most Recent: 84.4 kg I&O - Last 24 Hours: Intake & Output 08/23/17 08/24/17 08/24/17 22:59 06:59 14:59 Intake Total 2000 Output Total 750 Balance 1250 Lab Results Last 24 Hours: Laboratory Results - last 24 hr 08/24/17 08/24/17 08/24/17 Range/Units 05:35 05:35 05:35 WBC 6.59 (4.0-11.0) K/uL RBC 3.98 L (4.50-5.90) M/uL Hgb 12.1 L (13.0-17.0) g/dL Hct 38.1 (38.0-50.0) % MCV 95.7 (80.0-98.0) fL MCH 30.4 (27.0-32.0) pg MCHC 31.8 (31.0-37.0) g/dL RDW Std Deviation 48.0 (28.0-62.0) fl RDW Coeff of Rowdy 14 (11.0-15.0) % Plt Count 278 (150-400) K/uL MPV 9.90 (7.40-12.00) fL Neut % (Auto) 90.1 H (48.0-80.0) % Lymph % (Auto) 8.5 L (16.0-40.0) % [place] % (Auto) 1.2 (0.0-15.0) % Eos % (Auto) 0.0 (0.0-7.0) % Baso % (Auto) 0.2 (0.0-1.5) % Neut # (Auto) 5.9 H (1.4-5.7) K/uL Lymph # (Auto) 0.6 (0.6-2.4) K/uL [place] # (Auto) 0.1 (0.0-0.8) K/uL Eos # (Auto) 0.0 (0.0-0.7) K/uL Baso # (Auto) 0.0 (0.0-0.1) K/uL Nucleated RBC % 0.0 /100WBC Nucleated RBCs # 0 K/uL Lactate 1.1 (0.20-2.00) mmol/L Sodium 141 (136-146) mmol/L Potassium 4.7 (3.5-5.1) mmol/L Chloride 108 (98-110) mmol/L Carbon Dioxide 23 (21-31) mmol/L BUN 36 H (6.0-23.0) mg/dL Creatinine 1.2 (0.6-1.5) mg/dL Est Cr Clr Drug Dosing TNP Estimated GFR (MDRD) 57.3 ml/min Glucose 133 H (60-110) mg/dL Calcium 8.5 L (8.8-10.8) mg/dL Med Orders - Current: Current Medications Albuterol/Ipratropium (Duoneb 3.0-0.5 Mg/3 Ml) 3 ml NEB Q6HRRT [facility] Last Admin: 08/24/17 11:10 Dose: 3 ml Sodium Chloride (Normal Saline) 1,000 mls @ 125 mls/hr IV STAT [facility] Last Admin: 08/24/17 08:18 Dose: 125 mls/hr Meropenem 1 gm/ Sodium (Chloride) 100 mls @ 200 mls/hr IV Q12H [facility] Last Admin: 08/24/17 12:35 Dose: 200 mls/hr Discontinued Medications Albuterol (Proventil Neb Soln) 2.5 mg NEB ONETIME ONE Stop: 08/24/17 03:51 Last Admin: 08/24/17 04:00 Dose: 2.5 mg Albuterol/Ipratropium (Duoneb 3.0-0.5 Mg/3 Ml) 3 ml NEB ONETIME ONE Stop: 08/23/17 20:15 Last Admin: 08/23/17 20:32 Dose: 3 ml Enoxaparin Sodium (Lovenox) 40 mg SUBCUT DAILY GAIL Enoxaparin Sodium (Lovenox) 40 mg SUBCUT Q24H [facility] Furosemide (Lasix) 40 mg IVPUSH NOW ONE Stop: 08/23/17 20:15 Last Admin: 08/23/17 20:31 Dose: 40 mg Levofloxacin/Dextrose 500 mg/ (Premix) 100 mls @ 100 mls/hr IV ONETIME ONE Stop: 08/23/17 22:42 Last Admin: 08/23/17 21:49 Dose: 100 mls/hr Meropenem 1 gm/ Sodium (Chloride) 100 mls @ 200 mls/hr IV Q8H [facility] Last Admin: 08/24/17 00:44 Dose: Not Given Meropenem 1 gm/ Sodium (Chloride) 100 mls @ 200 mls/hr IV Q8H GA[facility] Meropenem 1 gm/ Sodium (Chloride) 100 mls @ 200 mls/hr IV Q8H [facility] Last Admin: 08/24/17 00:10 Dose: 200 mls/hr Vancomycin HCl 1.25 gm/ Sodium (Chloride) 250 mls @ 166.667 mls/hr IV ONETIME ONE Stop: 08/24/17 03:29 Last Admin: 08/24/17 02:45 Dose: 166.667 mls/hr Sodium Chloride (Normal Saline) 1,000 mls @ 999 mls/hr IV .Bolus ONE Stop: 08/24/17 04:35 Last Admin: 08/24/17 03:47 Dose: 999 mls/hr Methylprednisolone Sodium Succinate (Solu-Medrol) 125 mg IVPUSH ONETIME ONE Stop: 08/23/17 20:15 Last Admin: 08/23/17 20:31 Dose: 125 mg Naloxone HCl (Narcan) 0.4 mg IVPUSH ONETIME ONE Stop: 08/23/17 20:16 Last Admin: 08/23/17 20:31 Dose: 0.4 mg - Exam Quality Assessment: Supplemental Oxygen General: Alert, Mild Distress HEENT: Pupils Equal Neck: Supple Lungs: Other (Coarse breath sounds. Coughing throughout the exam.) Cardiovascular: Regular Rate GI/Abdominal Exam: Normal Bowel Sounds, Soft Extremities: No Pedal Edema Peripheral Pulses: 3+: Dorsalis Pedis (L), Dorsalis Pedis (R) Skin: Warm - Problem List Review Problem List Initiated/Reviewed/Updated: Yes - Plan Plan:: Assessment: #1. Hospital-acquired pneumonia #2. Urinary tract infection #3. History of dementia, htn, chronic uti, hematuria #4. Comfort care measures Plan: 1.IV meropenem 1g q12h. was given 1x dose of vancomycin by e-icu. 2.IV 125mg solu-medrol x1 3. duoneb prn q4hr prn for wheezing/sob 4. f/u on urine culture We did discuss the patient's case with family member at the bedside. At last hospital stay, the family did agree to comfort care measures given the rather heavily resistant urinary tract infection that appears to be chronic along with his chronic state of dementia. There were concerns about why the patient was receiving narcotic pain medication while at [facility]. At this point, it does appear that the family would like to treat the infection if possible. A lengthy discussion took place on goals of this hospital stay. We will touch base with the family again and explained the situation. There is a strong likelihood given the chronic urinary tract infections that he can present back to the hospital for a similar presentation.
[2017-08-24] MEDS ORDERED: methylPREDNISolone Sodium Succinate 125 MG/2 ML SDV IVPUSH ONE (14:22)
--- NOTE | 2017-08-24 19:27 | CT ---
EXAM DATE: 08/23/17 PATIENT'S AGE: 87 Patient: ANTIONE SAHU Facility: [facility] [place], [place] Site . Site : 1930 Study: CT Head [id number]/21/2018 9:15:44 PM Ordering Physician: Dong Monroe Final Report: INDICATION: Altered mental status. TECHNIQUE: Noncontrast axial images through the brain. COMPARISON: 12/14/2016. FINDINGS: No abnormal intracranial mass effect or midline shift. No acute intracranial hemorrhage. Periventricular white matter changes are again seen consistent with chronic small vessel disease. 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 No new areas of abnormal attenuation are identified. Atrophic changes. No acute bony abnormality. Paranasal sinuses are essentially clear. Mastoids and middle ear cavities are clear. IMPRESSION: No CT evidence of an acute intracranial abnormality. Dictated by Derrick Jacobs MD @ 08/23/2017 9:21:15 PM Dictated by: Derrick Jacobs MD @ 08/23/2017 21:21:37 (Electronic Signature) Report Signed by Proxy. [facility]
--- NOTE | 2017-08-24 19:28 | CR ---
EXAM DATE: 08/23/17 PATIENT'S AGE: 87 Patient: ANTIONE SAHU Facility: [place], [place] Site . Site : 1930 Study: XRay Chest [id number]/21/2018 9:19:51 PM Ordering Physician: Dong Monroe Final Report: Indication: Pain and shortness of breath Technique: Chest 1 view Comparison: 08/01/2017. Findings/Impression: Cardiovascular and mediastinum: Stable cardiomediastinal silhouette. An ectatic calcified aortic arch again seen. Left hilar prominence again noted, which could be related to vasculature. Lungs and pleural space: Mild retrocardiac opacity could represent atelectasis or evolving consolidation. Probable mild right infrahilar subsegmental atelectasis. A possible small left pleural effusion. Correlate clinically and followup. Bones and soft tissues: No significant change. Shoulder arthroplasties again noted. Dictated by José Luis Hendrickson MD @ 08/23/2017 9:25:47 PM Dictated by: José Luis Hendrickson MD @ 08/23/2017 21:26:06 (Electronic Signature) Report Signed by Proxy. [facility]
[2017-08-25] MEDS: Albuterol/Ipratropium 3.0-0.5 MG/3 ML Neb Soln NEB SCH ×4 (00:10→18:39)
[2017-08-25] MEDS: Sodium Chloride 0.9% 1,000 ML IV SCH (03:03)
[2017-08-25 07:49] LABS: CHLORIDE,CL 111 mmol/L (98-110); SODIUM,NA 143 mmol/L (136-146)
[2017-08-25] MEDS: Levofloxacin/Dextrose 5%-Water 750 MG in Premix Bag 1 BAG IV SCH (08:23)
[2017-08-25] MEDS ORDERED: Magnesium Hydroxide 400 MG/5 ML Susp 30 ML Cup PO PRN (11:18)
[2017-08-25] MEDS ORDERED: Atropine 1% Ophth Soln 5 ML BOTTLE SL PRN (11:18)
[2017-08-25] MEDS ORDERED: Acetaminophen 500 MG Tab PO PRN (11:18)
[2017-08-25] MEDS ORDERED: Bisacodyl 10 MG Supp RECTAL PRN (11:18)
[2017-08-25] MEDS ORDERED: Ibuprofen 400 MG Tab PO PRN (11:18)
[2017-08-25] MEDS ORDERED: Polyethylene Glycol 3350 Powder 17 GM Packet PO SCH (11:30)
[2017-08-25] MEDS: Meropenem 1 GM in Sodium Chloride 0.9% 100 ML IV SCH ×2 (12:29→21:00)
--- NOTE | 2017-08-25 12:34 | PCM.PN ---
- General Info Date of Service: 08/25/17 Subjective Update: Patient was much more alert today. When asked, he denied having any specific concerns. He is able to voice to me that he was not having any chest pain, shortness of breath beyond baseline, numbness or tingling or nausea or vomiting. - Review of Systems General: Reports: Other (See history of present illness) - Patient Data Vitals - Most Recent: Last Vital Signs Temp 36.3 C 08/25/17 10:00 Pulse 84 08/25/17 09:00 Resp 21 H 08/25/17 10:51 BP 120/66 08/25/17 10:51 Pulse Ox 94 L 08/25/17 10:51 Weight - Most Recent: 82.2 kg I&O - Last 24 Hours: Intake & Output 08/24/17 08/25/17 08/25/17 22:59 06:59 14:59 Intake Total 2720 150 Output Total 450 525 Balance -450 2195 150 Lab Results Last 24 Hours: Laboratory Results - last 24 hr 08/25/17 08/25/17 Range/Units 06:33 06:33 WBC 8.65 (4.0-11.0) K/uL RBC 3.88 L (4.50-5.90) M/uL Hgb 11.7 L (13.0-17.0) g/dL Hct 36.8 L (38.0-50.0) % MCV 94.8 (80.0-98.0) fL MCH 30.2 (27.0-32.0) pg MCHC 31.8 (31.0-37.0) g/dL RDW Std Deviation 46.8 (28.0-62.0) fl RDW Coeff of Rowdy 14 (11.0-15.0) % Plt Count 271 (150-400) K/uL MPV 10.40 (7.40-12.00) fL Neut % (Auto) 90.0 H (48.0-80.0) % Lymph % (Auto) 6.7 L (16.0-40.0) % [place] % (Auto) 3.1 (0.0-15.0) % Eos % (Auto) 0.0 (0.0-7.0) % Baso % (Auto) 0.2 (0.0-1.5) % Neut # (Auto) 7.8 H (1.4-5.7) K/uL Lymph # (Auto) 0.6 (0.6-2.4) K/uL [place] # (Auto) 0.3 (0.0-0.8) K/uL Eos # (Auto) 0.0 (0.0-0.7) K/uL Baso # (Auto) 0.0 (0.0-0.1) K/uL Nucleated RBC % 0.0 /100WBC Nucleated RBCs # 0 K/uL Sodium 143 (136-146) mmol/L Potassium 4.1 (3.5-5.1) mmol/L Chloride 111 H (98-110) mmol/L Carbon Dioxide 25 (21-31) mmol/L BUN 30 H (6.0-23.0) mg/dL Creatinine 0.8 (0.6-1.5) mg/dL Est Cr Clr Drug Dosing 52.36 mL/min Estimated GFR (MDRD) > 60.0 ml/min Glucose 121 H (60-110) mg/dL Calcium 8.5 L (8.8-10.8) mg/dL Med Orders - Current: Current Medications Acetaminophen (Tylenol Extra Strength) 500 mg PO BID [facility] Acetaminophen (Tylenol Extra Strength) 1,000 mg PO Q6H PRN PRN Reason: Pain/Fever Albuterol/Ipratropium (Duoneb 3.0-0.5 Mg/3 Ml) 3 ml NEB Q6HRRT [facility] Last Admin: 08/25/17 11:42 Dose: 3 ml Aspirin (Aspirin) 81 mg PO DAILY [facility] Atropine Sulfate (Atropine 1% Ophth Soln) 0 ml SL Q1H PRN PRN Reason: SECRETIONS Bisacodyl (Dulcolax) 10 mg RECTAL Q24H PRN PRN Reason: Constipation Docusate Sodium (Colace) 100 mg PO BID [facility] Dorzolamide HCl (Trusopt 2% Ophth Soln) 0 ml EYEBOTH BID [facility] Furosemide (Lasix) 20 mg PO DAILY [facility] Sodium Chloride (Normal Saline) 1,000 mls @ 125 mls/hr IV STAT [facility] Last Admin: 08/25/17 03:03 Dose: 125 mls/hr Levofloxacin/Dextrose 750 mg/ (Premix) 150 mls @ 100 mls/hr IV Q24H [facility] Last Admin: 08/25/17 08:23 Dose: 100 mls/hr Meropenem 1 gm/ Sodium (Chloride) 100 mls @ 200 mls/hr IV Q8H [facility] Last Admin: 08/25/17 12:29 Dose: 200 mls/hr Ibuprofen (Motrin) 400 mg PO Q6HR PRN PRN Reason: Pain Levetiracetam (Keppra) 500 mg PO BID [facility] Magnesium Hydroxide (Milk Of Magnesia) 30 ml PO Q24H PRN PRN Reason: Constipation Mineral Oil/White Petrolatum (Lacri-Lube S.O.P Oint) 0 gm EYEBOTH BID [facility] Polyethylene Glycol (Miralax) 17 gm PO Q48H [facility] Last Admin: 08/25/17 11:36 Dose: Not Given Potassium Chloride (Klor-Con 10) 10 meq PO DAILY [facility] Risperidone (Risperidal) 1 mg PO BID [facility] Telmisartan (Micardis) 20 mg PO BID [facility] Discontinued Medications Albuterol (Proventil Neb Soln) 2.5 mg NEB ONETIME ONE Stop: 08/24/17 03:51 Last Admin: 08/24/17 04:00 Dose: 2.5 mg Albuterol/Ipratropium (Duoneb 3.0-0.5 Mg/3 Ml) 3 ml NEB ONETIME ONE Stop: 08/23/17 20:15 Last Admin: 08/23/17 20:32 Dose: 3 ml Enoxaparin Sodium (Lovenox) 40 mg SUBCUT DAILY [facility] Enoxaparin Sodium (Lovenox) 40 mg SUBCUT Q24H [facility] Furosemide (Lasix) 40 mg IVPUSH NOW ONE Stop: 08/23/17 20:15 Last Admin: 08/23/17 20:31 Dose: 40 mg Levofloxacin/Dextrose 500 mg/ (Premix) 100 mls @ 100 mls/hr IV ONETIME ONE Stop: 08/23/17 22:42 Last Admin: 08/23/17 21:49 Dose: 100 mls/hr Meropenem 1 gm/ Sodium (Chloride) 100 mls @ 200 mls/hr IV Q8H [facility] Last Admin: 08/24/17 00:44 Dose: Not Given Meropenem 1 gm/ Sodium (Chloride) 100 mls @ 200 mls/hr IV Q8H [facility] Meropenem 1 gm/ Sodium (Chloride) 100 mls @ 200 mls/hr IV Q8H [facility] Last Admin: 08/24/17 00:10 Dose: 200 mls/hr Vancomycin HCl 1.25 gm/ Sodium (Chloride) 250 mls @ 166.667 mls/hr IV ONETIME ONE Stop: 08/24/17 03:29 Last Admin: 08/24/17 02:45 Dose: 166.667 mls/hr Sodium Chloride (Normal Saline) 1,000 mls @ 999 mls/hr IV .Bolus ONE Stop: 08/24/17 04:35 Last Admin: 08/24/17 03:47 Dose: 999 mls/hr Meropenem 1 gm/ Sodium (Chloride) 100 mls @ 200 mls/hr IV Q12H [facility] Last Admin: 08/24/17 23:42 Dose: 200 mls/hr Methylprednisolone Sodium Succinate (Solu-Medrol) 125 mg IVPUSH ONETIME ONE Stop: 08/23/17 20:15 Last Admin: 08/23/17 20:31 Dose: 125 mg Methylprednisolone Sodium Succinate (Solu-Medrol) 125 mg IVPUSH ONETIME ONE Stop: 08/24/17 14:23 Last Admin: 08/24/17 15:30 Dose: 125 mg Naloxone HCl (Narcan) 0.4 mg IVPUSH ONETIME ONE Stop: 08/23/17 20:16 Last Admin: 08/23/17 20:31 Dose: 0.4 mg Naloxone HCl (Narcan) Confirm Administered Dose 0.4 mg .ROUTE .STK-MED ONE Stop: 08/23/17 20:14 - Exam Quality Assessment: Supplemental Oxygen General: Alert, Other (When asked, patient stated that he is currently in a care home. He was unaware that he was in ICU.) HEENT: Pupils Equal Neck: Supple Lungs: Other (Coarse breath sounds that have overall improved from yesterday.) Cardiovascular: Regular Rate GI/Abdominal Exam: Normal Bowel Sounds, Soft Skin: Warm Neurological: No New Focal Deficit Psy/Mental Status: Alert, Normal Affect - Problem List Review Problem List Initiated/Reviewed/Updated: Yes - My Orders Last 24 Hours: My Active Orders 08/25/17 08:00 Levofloxacin/Dextrose 5%-Water [Levaquin in D5W 750 MG/150 ML] 750 mg Premix Bag 1 bag IV Q24H 08/25/17 11:18 Acetaminophen [Tylenol Extra Strength] 1,000 mg PO Q6H PRN Atropine 1% [Atropine 1% Ophth Soln] 0 ml SL Q1H PRN Bisacodyl [Dulcolax] 10 mg RECTAL Q24H PRN Ibuprofen [Motrin] 400 mg PO Q6HR PRN Magnesium Hydroxide [Milk of Magnesia] 30 ml PO Q24H PRN 08/25/17 11:24 Transfer Patient (Change bed) [ADT] Routine 08/25/17 11:30 Polyethylene Glycol 3350 [MiraLAX] 17 gm PO Q48H 08/25/17 21:00 Acetaminophen [Tylenol Extra Strength] 500 mg PO BID Docusate Sodium [Colace] 100 mg PO BID Dorzolamide [Trusopt 2% Ophth Soln] 0 ml EYEBOTH BID Mineral Oil/Petrolatum Oint [Lacri-Lube S.O.P Oint] 0 gm EYEBOTH BID Telmisartan [Micardis] 20 mg PO BID levETIRAcetam [Keppra] 500 mg PO BID risperiDONE [RisperiDAL] 1 mg PO BID 08/25/17 Lunch Regular Diet [DIET] 08/26/17 09:00 Aspirin 81 mg PO DAILY Furosemide [Lasix] 20 mg PO DAILY Potassium Chloride [Klor-Con 10] 10 meq PO DAILY - Plan Plan:: Assessment: #1. Chronic resistant urinary tract infection #2. Pneumonia #3. Chronic hematuria #4. Mild hypocalcemia #5. Altered mental status secondary to History of dementia Plan: #1. Start Levaquin IV for pneumonia. Wean down on oxygen. Patient was on 3 L when examined, 2 L is his baseline #2. Continue meropenem #3. Restart home medications #4. Transfer to the regular floor. We'll not be starting sedating medications that he was on before. #5. Anticipate discharge back to [facility] tomorrow
[2017-08-25] MEDS: Acetaminophen 500 MG Tab PO SCH (21:41)
[2017-08-25] MEDS: risperiDONE 1 MG Tab PO SCH (21:42)
[2017-08-25] MEDS: levETIRAcetam 500 MG Tab PO SCH (21:42)
[2017-08-25] MEDS: Dorzolamide 2% Ophth Soln 10 ML Bottle EYEBOTH SCH (21:44)
[2017-08-25] MEDS: Mineral Oil/Petrolatum Ophth Oint 3.5 GM Tube EYEBOTH SCH (21:44)
[2017-08-25] MEDS: Docusate Sodium 100 MG Cap PO SCH (21:46)
[2017-08-26] MEDS: Albuterol/Ipratropium 3.0-0.5 MG/3 ML Neb Soln NEB SCH ×3 (00:07→11:12)
[2017-08-26] MEDS: Meropenem 1 GM in Sodium Chloride 0.9% 100 ML IV SCH ×2 (06:28→11:23)
[2017-08-26 08:06] VITALS: BP 130/72
[2017-08-26] MEDS ORDERED: Potassium Chloride 10 MEQ Tab.ER PO SCH (09:00)
[2017-08-26] MEDS ORDERED: Aspirin 81 MG Tab.Chew PO SCH (09:00)
[2017-08-26] MEDS ORDERED: Furosemide 20 MG Tab PO SCH (09:00)
[2017-08-26] MEDS: Levofloxacin/Dextrose 5%-Water 750 MG in Premix Bag 1 BAG IV SCH (09:14)
[2017-08-26] MEDS: Docusate Sodium 100 MG Cap PO SCH (09:15)
[2017-08-26] MEDS: risperiDONE 1 MG Tab PO SCH (09:15)
[2017-08-26] MEDS: levETIRAcetam 500 MG Tab PO SCH (09:15)
[2017-08-26] MEDS: Acetaminophen 500 MG Tab PO SCH (09:15)
[2017-08-26 09:20] LABS: CHLORIDE,CL 109 mmol/L (98-110); SODIUM,NA 143 mmol/L (136-146)
[2017-08-26] MEDS: Dorzolamide 2% Ophth Soln 10 ML Bottle EYEBOTH SCH (09:26)
[2017-08-26] MEDS: Mineral Oil/Petrolatum Ophth Oint 3.5 GM Tube EYEBOTH SCH (09:26)
[2017-08-26] MEDS ORDERED: Nitrofurantoin Monohydrate/Macrocrystalline 100 MG Cap PO SCH (11:15)
--- NOTE | 2017-08-26 13:51 | PCM.DCSUM1 ---
<Chin Beyer - Last Filed: 08/26/17 13:46> Discharge Summary - Hospital Course Free Text/Narrative:: Admission date: August 23, 2017 Discharge date: August 26, 2017 Admission diagnosis: #1. Altered mental status #2. Urinary tract infection with a ESBL E.coli #3. Suspected Pneumonia #4. History of dementia, chronic hematuria Discharge diagnosis: 1. Altered mental status improved 2. Urinary tract infection asymptomatic 3. History of dementia, chronic hematuria Disposition: [facility] Hospital course: This is a 87-year-old male [facility] resident who presented to the emergency department with altered mental status and completely obtunded. This is believed to be secondary to medication received at the long term. He received Narcan in the emergency department and showed signs of awakening. He was admitted to the ICU for pneumonia, urinary tract infection. He was treated with meropenem, Levaquin. Subsequent days patient showed clinical improvement. There were concerns with the family about the patient receiving narcotics and fentanyl patch at the long term. This medication was not continued in the hospital stay. Upon discharge, the patient' s respiratory status greatly improved, he is able to answer questions appropriately. He was discharged back to [place] on a 5 day course of Macrobid 100 mg by mouth every 12 hours. It was discussed with family that we will try to avoid the use of fentanyl patch in the future. Discussions with the family indicated that the patient at this point is on comfort measures. - Discharge Data Discharge Date: 08/26/17 Discharge Disposition: DC/Tfer to [facility] Condition: Stable - Patient Instructions Diet: Usual Diet as Tolerated Activity: As Tolerated Notify Provider of: Fever, Increased Pain, Nausea and/or Vomiting Other/Special Instructions: avoid narcotics, fentanyl patch - Discharge Plan Prescriptions/Med Rec: Nitrofurantoin Monohyd/M-Cryst [Macrobid 100 mg Capsule] 100 mg PO Q12H 5 Days # 10 capsule Home Medications: Home Meds Acetaminophen [Tylenol Extra Strength] 1,000 mg PO Q6H PRN 06/09/15 [History] Docusate Sodium 100 mg PO BID 06/09/15 [History] Magnesium Hydroxide [Milk of Magnesia] 30 ml PO Q24H PRN 06/09/15 [History] Polyethylene Glycol 3350 [MiraLAX] 17 gm PO Q48H 06/09/15 [History] Propylene Glycol/Peg 400 [Systane 0.3-0.4% Eye Drops] 1 drop EYELF QID 06/09/15 [History] risperiDONE [Risperdal] 1 mg PO BID 06/09/15 [History] Dorzolamide [Trusopt 2% Oph Soln] 1 drop EYEBOTH BID 12/19/15 [History] Furosemide [Lasix] 20 mg PO DAILY 12/19/15 [History] Telmisartan 20 mg PO BID 12/19/15 [History] levETIRAcetam [Keppra] 500 mg PO BID 12/19/15 [History] Potassium Chloride [Klor-Con] 10 meq PO DAILY 06/12/16 [History] Atropine 1% [Isopto Atropine 1% Oph Soln] 2 drop SL Q1H PRN 09/25/16 [History] Bisacodyl [Dulcolax] 10 mg RECTAL Q24H PRN 09/25/16 [History] Dextromethorphan Polistirex [Delsym] 10 ml PO Q12H PRN 09/25/16 [History] Levalbuterol HCl [Levalbuterol Concentrate] 1.25 mg IH Q6H PRN 10/20/16 [History ] Acetaminophen [Tylenol Extra Strength] 500 mg PO BID 12/16/16 [History] Ibuprofen 400 mg PO Q6HR PRN 02/21/17 [History] Levothyroxine 125 mcg PO SUTUWETHSA 08/01/17 [History] Levothyroxine 187.5 mcg PO MOFR 08/01/17 [History] Aspirin 81 mg PO DAILY 08/04/17 [History] Ipratropium/Albuterol Sulfate [Iprat-Albut 0.5-3(2.5) MG/3 ML] 1 vial IH Q6H PRN 08/04/17 [History] Mineral Oil/Petrolatum,White [Artificial Tears Eye Ointment] 1 applic EYEBOTH BID 08/04/17 [History] Nitrofurantoin Monohyd/M-Cryst [Macrobid 100 mg Capsule] 100 mg PO Q12H 5 Days # 10 capsule 08/26/17 [Rx] Referrals: Castillo Ramon MD [Physician] - - Discharge Summary/Plan Comment Discharge Summary/Plan Comment: Admission date: August 23, 2017 Discharge date: August 26, 2017 Admission diagnosis: #1. Altered mental status #2. Urinary tract infection with a ESBL E.coli #3. Suspected Pneumonia #4. History of dementia, chronic hematuria Discharge diagnosis: 1. Altered mental status improved 2. Urinary tract infection asymptomatic 3. History of dementia, chronic hematuria Disposition: [facility] Hospital course: This is a 87-year-old male [facility] resident who presented to the emergency department with altered mental status and completely obtunded. This is believed to be secondary to medication received at the long term. He received Narcan in the emergency department and showed signs of awakening. He was admitted to the ICU for pneumonia, urinary tract infection. He was treated with meropenem, Levaquin. Subsequent days patient showed clinical improvement. There were concerns with the family about the patient receiving narcotics and fentanyl patch at the long term. This medication was not continued in the hospital stay. Upon discharge, the patient' s respiratory status greatly improved, he is able to answer questions appropriately. He was discharged back to [place] on a 5 day course of Macrobid 100 mg by mouth every 12 hours. It was discussed with family that we will try to avoid the use of fentanyl patch in the future. Discussions with the family indicated that the patient at this point is on comfort measures. - Patient Data Vitals - Most Recent: Last Vital Signs Temp 36.8 C 08/26/17 08:00 Pulse 92 08/26/17 08:00 Resp 24 H 08/26/17 08:00 BP 130/72 08/26/17 09:16 Pulse Ox 95 08/26/17 08:00 Weight - Most Recent: 84.958 kg I&O - Last 24 hours: Intake & Output 08/25/17 08/26/17 08/26/17 22:59 06:59 14:59 Intake Total 500 600 Output Total 600 Balance -100 600 Lab Results - Last 24 hrs: Laboratory Results - last 24 hr 08/26/17 08/26/17 Range/Units 08:49 09:00 WBC 6.85 (4.0-11.0) K/uL RBC 4.24 L (4.50-5.90) M/uL Hgb 12.9 L (13.0-17.0) g/dL Hct 40.1 (38.0-50.0) % MCV 94.6 (80.0-98.0) fL MCH 30.4 (27.0-32.0) pg MCHC 32.2 (31.0-37.0) g/dL RDW Std Deviation 48.2 (28.0-62.0) fl RDW Coeff of Rowdy 14 (11.0-15.0) % Plt Count 273 (150-400) K/uL MPV 10.00 (7.40-12.00) fL Neut % (Auto) 71.9 (48.0-80.0) % Lymph % (Auto) 17.7 (16.0-40.0) % [place] % (Auto) 7.6 (0.0-15.0) % Eos % (Auto) 2.2 (0.0-7.0) % Baso % (Auto) 0.6 (0.0-1.5) % Neut # (Auto) 4.9 (1.4-5.7) K/uL Lymph # (Auto) 1.2 (0.6-2.4) K/uL [place] # (Auto) 0.5 (0.0-0.8) K/uL Eos # (Auto) 0.2 (0.0-0.7) K/uL Baso # (Auto) 0.0 (0.0-0.1) K/uL Nucleated RBC % 0.0 /100WBC Nucleated RBCs # 0 K/uL Sodium 143 (136-146) mmol/L Potassium 3.6 (3.5-5.1) mmol/L Chloride 109 (98-110) mmol/L Carbon Dioxide 25 (21-31) mmol/L BUN 26 H (6.0-23.0) mg/dL Creatinine 0.9 (0.6-1.5) mg/dL Est Cr Clr Drug Dosing 46.54 mL/min Estimated GFR (MDRD) > 60.0 ml/min Glucose 81 (60-110) mg/dL Calcium 8.5 L (8.8-10.8) mg/dL Med Orders - Current: Current Medications Acetaminophen (Tylenol Extra Strength) 500 mg PO BID [facility] Last Admin: 08/26/17 09:15 Dose: 500 mg Acetaminophen (Tylenol Extra Strength) 1,000 mg PO Q6H PRN PRN Reason: Pain/Fever Albuterol/Ipratropium (Duoneb 3.0-0.5 Mg/3 Ml) 3 ml NEB Q6HRRT [facility] Last Admin: 08/26/17 11:12 Dose: 3 ml Aspirin (Aspirin) 81 mg PO DAILY [facility] Last Admin: 08/26/17 09:15 Dose: 81 mg Atropine Sulfate (Atropine 1% Ophth Soln) 0 ml SL Q1H PRN PRN Reason: SECRETIONS Bisacodyl (Dulcolax) 10 mg RECTAL Q24H PRN PRN Reason: Constipation Docusate Sodium (Colace) 100 mg PO BID [facility] Last Admin: 08/26/17 09:15 Dose: 100 mg Dorzolamide HCl (Trusopt 2% Ophth Soln) 0 ml EYEBOTH BID [facility] Last Admin: 08/26/17 09:26 Dose: 2 drop Furosemide (Lasix) 20 mg PO DAILY [facility] Last Admin: 08/26/17 09:15 Dose: 20 mg Levofloxacin/Dextrose 750 mg/ (Premix) 150 mls @ 100 mls/hr IV Q24H [facility] Last Admin: 08/26/17 09:14 Dose: Not Given Meropenem 1 gm/ Sodium (Chloride) 100 mls @ 200 mls/hr IV Q8H [facility] Last Admin: 08/26/17 11:23 Dose: Not Given Ibuprofen (Motrin) 400 mg PO Q6HR PRN PRN Reason: Pain Levetiracetam (Keppra) 500 mg PO BID [facility] Last Admin: 08/26/17 09:15 Dose: 500 mg Magnesium Hydroxide (Milk Of Magnesia) 30 ml PO Q24H PRN PRN Reason: Constipation Mineral Oil/White Petrolatum (Lacri-Lube S.O.P Oint) 0 gm EYEBOTH BID [facility] Last Admin: 08/26/17 09:26 Dose: 2 applic Nitrofurantoin Macrocrystals (Macrobid) 100 mg PO BID [facility] Last Admin: 08/26/17 11:22 Dose: 100 mg Polyethylene Glycol (Miralax) 17 gm PO Q48H [facility] Last Admin: 08/25/17 11:36 Dose: Not Given Potassium Chloride (Klor-Con 10) 10 meq PO DAILY [facility] Last Admin: 01/24/18 09:15 Dose: 10 meq Risperidone (Risperidal) 1 mg PO BID [facility] Last Admin: 08/26/17 09:15 Dose: 1 mg Telmisartan (Micardis) 20 mg PO BID [facility] Last Admin: 08/26/17 09:16 Dose: 20 mg Discontinued Medications Albuterol (Proventil Neb Soln) 2.5 mg NEB ONETIME ONE Stop: 08/24/17 03:51 Last Admin: 08/24/17 04:00 Dose: 2.5 mg Albuterol/Ipratropium (Duoneb 3.0-0.5 Mg/3 Ml) 3 ml NEB ONETIME ONE Stop: 08/23/17 20:15 Last Admin: 08/23/17 20:32 Dose: 3 ml Enoxaparin Sodium (Lovenox) 40 mg SUBCUT DAILY [facility] Enoxaparin Sodium (Lovenox) 40 mg SUBCUT Q24H [facility] Furosemide (Lasix) 40 mg IVPUSH NOW ONE Stop: 08/23/17 20:15 Last Admin: 08/23/17 20:31 Dose: 40 mg Sodium Chloride (Normal Saline) 1,000 mls @ 125 mls/hr IV STAT [facility] Last Admin: 08/25/17 03:03 Dose: 125 mls/hr Levofloxacin/Dextrose 500 mg/ (Premix) 100 mls @ 100 mls/hr IV ONETIME ONE Stop: 08/23/17 22:42 Last Admin: 08/23/17 21:49 Dose: 100 mls/hr Meropenem 1 gm/ Sodium (Chloride) 100 mls @ 200 mls/hr IV Q8H [facility] Last Admin: 08/24/17 00:44 Dose: Not Given Meropenem 1 gm/ Sodium (Chloride) 100 mls @ 200 mls/hr IV Q8H [facility] Meropenem 1 gm/ Sodium (Chloride) 100 mls @ 200 mls/hr IV Q8H [facility] Last Admin: 08/24/17 00:10 Dose: 200 mls/hr Vancomycin HCl 1.25 gm/ Sodium (Chloride) 250 mls @ 166.667 mls/hr IV ONETIME ONE Stop: 08/24/17 03:29 Last Admin: 08/24/17 02:45 Dose: 166.667 mls/hr Sodium Chloride (Normal Saline) 1,000 mls @ 999 mls/hr IV .Bolus ONE Stop: 08/24/17 04:35 Last Admin: 08/24/17 03:47 Dose: 999 mls/hr Meropenem 1 gm/ Sodium (Chloride) 100 mls @ 200 mls/hr IV Q12H [facility] Last Admin: 08/24/17 23:42 Dose: 200 mls/hr Methylprednisolone Sodium Succinate (Solu-Medrol) 125 mg IVPUSH ONETIME ONE Stop: 08/23/17 20:15 Last Admin: 08/23/17 20:31 Dose: 125 mg Methylprednisolone Sodium Succinate (Solu-Medrol) 125 mg IVPUSH ONETIME ONE Stop: 08/24/17 14:23 Last Admin: 08/24/17 15:30 Dose: 125 mg Naloxone HCl (Narcan) 0.4 mg IVPUSH ONETIME ONE Stop: 08/23/17 20:16 Last Admin: 08/23/17 20:31 Dose: 0.4 mg Naloxone HCl (Narcan) Confirm Administered Dose 0.4 mg .ROUTE .STK-MED ONE Stop: 08/23/17 20:14 Last Admin: 08/25/17 14:07 Dose: Not Given *Q Meaningful Use (DIS) - VTE *Q VTE Criteria *Q: - Stroke *Q Stroke Criteria *Q: - AMI *Q AMI Criteria *Q: <Kenneth Nick - Last Filed: 08/26/17 18:37> - Patient Data Vitals - Most Recent: Last Vital Signs Temp 36.8 C 08/26/17 08:00 Pulse 92 08/26/17 08:00 Resp 24 H 08/26/17 08:00 BP 130/72 08/26/17 09:16 Pulse Ox 95 08/26/17 08:00 I&O - Last 24 hours: Intake & Output 08/26/17 08/26/17 08/26/17 06:59 14:59 22:59 Intake Total 600 716 Output Total 443 Balance 600 273 Lab Results - Last 24 hrs: Laboratory Results - last 24 hr 08/26/17 08/26/17 Range/Units 08:49 09:00 WBC 6.85 (4.0-11.0) K/uL RBC 4.24 L (4.50-5.90) M/uL Hgb 12.9 L (13.0-17.0) g/dL Hct 40.1 (38.0-50.0) % MCV 94.6 (80.0-98.0) fL MCH 30.4 (27.0-32.0) pg MCHC 32.2 (31.0-37.0) g/dL RDW Std Deviation 48.2 (28.0-62.0) fl RDW Coeff of Rowdy 14 (11.0-15.0) % Plt Count 273 (150-400) K/uL MPV 10.00 (7.40-12.00) fL Neut % (Auto) 71.9 (48.0-80.0) % Lymph % (Auto) 17.7 (16.0-40.0) % [place] % (Auto) 7.6 (0.0-15.0) % Eos % (Auto) 2.2 (0.0-7.0) % Baso % (Auto) 0.6 (0.0-1.5) % Neut # (Auto) 4.9 (1.4-5.7) K/uL Lymph # (Auto) 1.2 (0.6-2.4) K/uL [place] # (Auto) 0.5 (0.0-0.8) K/uL Eos # (Auto) 0.2 (0.0-0.7) K/uL Baso # (Auto) 0.0 (0.0-0.1) K/uL Nucleated RBC % 0.0 /100WBC Nucleated RBCs # 0 K/uL Sodium 143 (136-146) mmol/L Potassium 3.6 (3.5-5.1) mmol/L Chloride 109 (98-110) mmol/L Carbon Dioxide 25 (21-31) mmol/L BUN 26 H (6.0-23.0) mg/dL Creatinine 0.9 (0.6-1.5) mg/dL Est Cr Clr Drug Dosing 46.54 mL/min Estimated GFR (MDRD) > 60.0 ml/min Glucose 81 (60-110) mg/dL Calcium 8.5 L (8.8-10.8) mg/dL Med Orders - Current: Current Medications Discontinued Medications Acetaminophen (Tylenol Extra Strength) 500 mg PO BID [facility] Last Admin: 08/26/17 09:15 Dose: 500 mg Acetaminophen (Tylenol Extra Strength) 1,000 mg PO Q6H PRN PRN Reason: Pain/Fever Albuterol (Proventil Neb Soln) 2.5 mg NEB ONETIME ONE Stop: 08/24/17 03:51 Last Admin: 08/24/17 04:00 Dose: 2.5 mg Albuterol/Ipratropium (Duoneb 3.0-0.5 Mg/3 Ml) 3 ml NEB ONETIME ONE Stop: 08/23/17 20:15 Last Admin: 08/23/17 20:32 Dose: 3 ml Albuterol/Ipratropium (Duoneb 3.0-0.5 Mg/3 Ml) 3 ml NEB Q6HRRT [facility] Last Admin: 08/26/17 11:12 Dose: 3 ml Aspirin (Aspirin) 81 mg PO DAILY [facility] Last Admin: 08/26/17 09:15 Dose: 81 mg Atropine Sulfate (Atropine 1% Ophth Soln) 0 ml SL Q1H PRN PRN Reason: SECRETIONS Bisacodyl (Dulcolax) 10 mg RECTAL Q24H PRN PRN Reason: Constipation Docusate Sodium (Colace) 100 mg PO BID [facility] Last Admin: 08/26/17 09:15 Dose: 100 mg Dorzolamide HCl (Trusopt 2% Ophth Soln) 0 ml EYEBOTH BID [facility] Last Admin: 08/26/17 09:26 Dose: 2 drop Enoxaparin Sodium (Lovenox) 40 mg SUBCUT DAILY [facility] Enoxaparin Sodium (Lovenox) 40 mg SUBCUT Q24H [facility] Furosemide (Lasix) 40 mg IVPUSH NOW ONE Stop: 08/23/17 20:15 Last Admin: 08/23/17 20:31 Dose: 40 mg Furosemide (Lasix) 20 mg PO DAILY [facility] Last Admin: 08/26/17 09:15 Dose: 20 mg Sodium Chloride (Normal Saline) 1,000 mls @ 125 mls/hr IV STAT [facility] Last Admin: 08/25/17 03:03 Dose: 125 mls/hr Levofloxacin/Dextrose 500 mg/ (Premix) 100 mls @ 100 mls/hr IV ONETIME ONE Stop: 08/23/17 22:42 Last Admin: 08/23/17 21:49 Dose: 100 mls/hr Meropenem 1 gm/ Sodium (Chloride) 100 mls @ 200 mls/hr IV Q8H [facility] Last Admin: 08/24/17 00:44 Dose: Not Given Meropenem 1 gm/ Sodium (Chloride) 100 mls @ 200 mls/hr IV Q8H [facility] Meropenem 1 gm/ Sodium (Chloride) 100 mls @ 200 mls/hr IV Q8H [facility] Last Admin: 08/24/17 00:10 Dose: 200 mls/hr Vancomycin HCl 1.25 gm/ Sodium (Chloride) 250 mls @ 166.667 mls/hr IV ONETIME ONE Stop: 08/24/17 03:29 Last Admin: 08/24/17 02:45 Dose: 166.667 mls/hr Sodium Chloride (Normal Saline) 1,000 mls @ 999 mls/hr IV .Bolus ONE Stop: 08/24/17 04:35 Last Admin: 08/24/17 03:47 Dose: 999 mls/hr Meropenem 1 gm/ Sodium (Chloride) 100 mls @ 200 mls/hr IV Q12H [facility] Last Admin: 08/24/17 23:42 Dose: 200 mls/hr Levofloxacin/Dextrose 750 mg/ (Premix) 150 mls @ 100 mls/hr IV Q24H [facility] Last Admin: 08/26/17 09:14 Dose: Not Given Meropenem 1 gm/ Sodium (Chloride) 100 mls @ 200 mls/hr IV Q8H [facility] Last Admin: 08/26/17 11:23 Dose: Not Given Ibuprofen (Motrin) 400 mg PO Q6HR PRN PRN Reason: Pain Levetiracetam (Keppra) 500 mg PO BID [facility] Last Admin: 08/26/17 09:15 Dose: 500 mg Magnesium Hydroxide (Milk Of Magnesia) 30 ml PO Q24H PRN PRN Reason: Constipation Methylprednisolone Sodium Succinate (Solu-Medrol) 125 mg IVPUSH ONETIME ONE Stop: 08/23/17 20:15 Last Admin: 08/23/17 20:31 Dose: 125 mg Methylprednisolone Sodium Succinate (Solu-Medrol) 125 mg IVPUSH ONETIME ONE Stop: 08/24/17 14:23 Last Admin: 08/24/17 15:30 Dose: 125 mg Mineral Oil/White Petrolatum (Lacri-Lube S.O.P Oint) 0 gm EYEBOTH BID [facility] Last Admin: 08/26/17 09:26 Dose: 2 applic Naloxone HCl (Narcan) 0.4 mg IVPUSH ONETIME ONE Stop: 08/23/17 20:16 Last Admin: 08/23/17 20:31 Dose: 0.4 mg Naloxone HCl (Narcan) Confirm Administered Dose 0.4 mg .ROUTE .STK-MED ONE Stop: 08/23/17 20:14 Last Admin: 08/25/17 14:07 Dose: Not Given Nitrofurantoin Macrocrystals (Macrobid) 100 mg PO BID [facility] Last Admin: 08/26/17 11:22 Dose: 100 mg Polyethylene Glycol (Miralax) 17 gm PO Q48H [facility] Last Admin: 08/25/17 11:36 Dose: Not Given Potassium Chloride (Klor-Con 10) 10 meq PO DAILY [facility] Last Admin: 08/26/17 09:15 Dose: 10 meq Risperidone (Risperidal) 1 mg PO BID [facility] Last Admin: 08/26/17 09:15 Dose: 1 mg Telmisartan (Micardis) 20 mg PO BID [facility] Last Admin: 08/26/17 09:16 Dose: 20 mg *Q Meaningful Use (DIS) - VTE *Q VTE Criteria *Q: - Stroke *Q Stroke Criteria *Q: - AMI *Q AMI Criteria *Q: - Free Text/Narrative Note: I have examined the patient. I have discussed findings and treatment plan with resident. I agree with the assessment and plan outlined in the following resident's note.
== END 2017-08-26 13:40 | DRG 947 ==
LOC: MW.ED 20:13 → MW.ICU 21:44 → OBSVTOIN 23:02 → MW.MS 08-25 17:30
PROVIDERS: ADMIT Family Medicine; ATTEND Internal Medicine
DX: R41.82 Altered mental status, unspecified (principal); J18.9 Pneumonia, unspecified organism; J18.1 Lobar pneumonia, unspecified organism; N39.0 Urinary tract infection, site not specified; F02.81 Dementia in other diseases classified elsewhere, unspecified severity, with behavioral disturbance; B96.20 Unspecified Escherichia coli [E. coli] as the cause of diseases classified elsewhere; T40.4X1A Poisoning by other synthetic narcotics, accidental (unintentional), initial encounter; F02.80 Dementia in other diseases classified elsewhere, unspecified severity, without behavioral disturbance, psychotic disturbance, mood disturbance, and anxiety; G30.9 Alzheimer's disease, unspecified; E03.9 Hypothyroidism, unspecified; R31.9 Hematuria, unspecified; E78.00 Pure hypercholesterolemia, unspecified; I10 Essential (primary) hypertension; J44.9 Chronic obstructive pulmonary disease, unspecified; Y92.129 Unspecified place in nursing home as the place of occurrence of the external cause; Z51.5 Encounter for palliative care; Z88.0 Allergy status to penicillin; Z88.8 Allergy status to other drugs, medicaments and biological substances; Z79.899 Other long term (current) drug therapy
CPT/HCPCS: 70450; 71045; 80053; 80305; 81001; 82550; 82553; 83880; 84484; 85025; 87086; 87186; 94640; 96361; 96365; 96375; 99285; A9270; J1940; J1956; J2930; J7040; 36415; 80048; 83605; 87088; 93005; J2185; J3370; J7030; J7050

== ENCOUNTER 2017-10-17 13:10 | Inpatient (IN) | payer MEDICARE, OTHER ==
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
[2017-10-17] MEDS ORDERED: Sodium Chloride 0.9% 1,000 ML IV ONE (13:24)
[2017-10-17 14:08] LABS: CHLORIDE,CL 105 mmol/L (98-107); SODIUM,NA 140 mmol/L (136-148)
[2017-10-17] MEDS ORDERED: Meropenem 1 GM in Sodium Chloride 0.9% 100 ML IV ONE ×2 (15:34→15:39)
[2017-10-17] MEDS: Sodium Chloride 0.9% 1,000 ML IV SCH (15:45)
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
[2017-10-17] MEDS ORDERED: Ondansetron 4 MG/2 ML SDV IVPUSH PRN (16:36)
[2017-10-17] MEDS ORDERED: Acetaminophen 325 MG Tab PO PRN (16:36)
[2017-10-17] MEDS ORDERED: Ondansetron 4 MG Tab.DIS PO PRN (16:36)
[2017-10-17] MEDS ORDERED: Morphine 2 MG/ML Syringe IVPUSH PRN (16:36)
[2017-10-17] MEDS ORDERED: Bisacodyl 10 MG Supp RECTAL PRN (16:48)
[2017-10-17] MEDS ORDERED: Atropine 1% Ophth Soln 5 ML BOTTLE SL PRN (16:48)
[2017-10-17] MEDS ORDERED: Magnesium Hydroxide 400 MG/5 ML Susp 30 ML Cup PO PRN (16:48)
[2017-10-17] MEDS ORDERED: Polyethylene Glycol 3350 Powder 17 GM Packet PO SCH (17:00)
[2017-10-17] MEDS: Heparin Sodium 5,000 Units/ML Vial SUBCUT SCH (17:58)
[2017-10-17] MEDS: levETIRAcetam 500 MG Tab PO SCH (20:44)
[2017-10-17] MEDS: risperiDONE 1 MG Tab PO SCH (20:44)
[2017-10-17] MEDS: Docusate Sodium 100 MG Cap PO SCH (21:57)
[2017-10-17] MEDS ORDERED: Loperamide 2 MG Cap PO PRN (22:21)
[2017-10-18] MEDS: Sodium Chloride 0.9% 1,000 ML IV SCH (00:11)
[2017-10-18] MEDS: Dorzolamide 2% Ophth Soln 10 ML Bottle EYEBOTH SCH ×3 (02:43→22:11)
[2017-10-18] MEDS ORDERED: Meropenem 1 GM in Sodium Chloride 0.9% 100 ML IV SCH (03:00)
[2017-10-18] MEDS: Meropenem 1 GM in Sodium Chloride 0.9% 100 ML IV SCH ×3 (03:49→22:12)
[2017-10-18] MEDS: Heparin Sodium 5,000 Units/ML Vial SUBCUT SCH ×2 (04:30→16:06)
[2017-10-18 04:31] LABS: CHLORIDE,CL 108 mmol/L (98-107); SODIUM,NA 140 mmol/L (136-148)
--- NOTE | 2017-10-18 06:41 | PCM.PN ---
- General Info Date of Service: 10/18/17 Admission Dx/Problem (Free Text): Admission Diagnosis/Problem Admission Diagnosis/Problem Hypotension Subjective Update: Patient up to chair when visiting this morning. States that he wants to go home. Denies any pain, somewhat limited secondary to history of dementia. As per nursing patient did remove his own Scherer and adamantly denies reinsertion of Scherer. Functional Status: Reports: Pain Controlled, Tolerating Diet, Ambulating, Urinating - Review of Systems General: Denies: Fever, Weakness, Fatigue HEENT: Denies: Headaches Pulmonary: Denies: Shortness of Breath, Pleuritic Chest Pain Cardiovascular: Denies: Chest Pain, Palpitations, Edema Gastrointestinal: Denies: Abdominal Pain Genitourinary: Denies: Dysuria Musculoskeletal: Denies: Neck Pain, Leg Pain Neurological: Reports: Confusion. Denies: Dizziness, Headache Psychiatric: Denies: Confusion, Depression (Hemorrhage. She reports did she have morphine ordered an one only try the morphine doesn't work and we can always acetaminophen at his dry admission reviewl yes please do better going and he is scheduled yet asked what she is taking at home he is restarted her home meds. Gas distributed when necessary Dilaudid now just in case we ordered a status post mild4) - Patient Data Vitals - Most Recent: Last Vital Signs Temp 97.2 F 10/18/17 04:00 Pulse 87 10/18/17 04:00 Resp 18 10/18/17 04:00 BP 135/81 10/18/17 04:00 Pulse Ox 96 10/18/17 04:00 Weight - Most Recent: 82.69 kg I&O - Last 24 Hours: Intake & Output 10/17/17 10/17/17 10/18/17 14:59 22:59 06:59 Intake Total 120 Output Total 450 Balance -330 Lab Results Last 24 Hours: Laboratory Results - last 24 hr 10/17/17 10/17/17 10/18/17 Range/Units 17:35 21:39 03:45 WBC 6.68 (4.0-11.0) K/uL RBC 4.01 L (4.50-5.90) M/uL Hgb 11.1 L (13.0-17.0) g/dL Hct 35.0 L (38.0-50.0) % MCV 87.3 (80.0-98.0) fL MCH 27.7 (27.0-32.0) pg MCHC 31.7 (31.0-37.0) g/dL RDW Std Deviation 46.1 (28.0-62.0) fl RDW Coeff of Rowdy 14 (11.0-15.0) % Plt Count 241 (150-400) K/uL MPV 10.00 (7.40-12.00) fL Neut % (Auto) 65.6 (48.0-80.0) % Lymph % (Auto) 17.5 (16.0-40.0) % [place] % (Auto) 9.4 (0.0-15.0) % Eos % (Auto) 7.2 H (0.0-7.0) % Baso % (Auto) 0.3 (0.0-1.5) % Neut # (Auto) 4.4 (1.4-5.7) K/uL Lymph # (Auto) 1.2 (0.6-2.4) K/uL [place] # (Auto) 0.6 (0.0-0.8) K/uL Eos # (Auto) 0.5 (0.0-0.7) K/uL Baso # (Auto) 0.0 (0.0-0.1) K/uL Nucleated RBC % 0.0 /100WBC Nucleated RBCs # 0 K/uL Lactate 2.6 H 2.8 H (0.20-2.00) mmol/L Sodium (136-148) mmol/L Potassium (3.5-5.1) mmol/L Chloride (98-107) mmol/L Carbon Dioxide (21.0-32.0) mmol/L BUN (7.0-18.0) mg/dL Creatinine (0.8-1.3) mg/dL Est Cr Clr Drug Dosing Estimated GFR (MDRD) ml/min Glucose (74-106) mg/dL Calcium (8.5-10.1) mg/dL Magnesium (1.5-2.0) mg/dL Total Bilirubin (0.2-1.0) mg/dL AST (15-37) IU/L ALT (14-63) IU/L Alkaline Phosphatase (46-116) U/L Total Protein (6.4-8.2) g/dL Albumin (3.4-5.0) g/dL Globulin (2.0-3.5) g/dL Albumin/Globulin Ratio (1.3-2.8) 10/18/17 10/18/17 Range/Units 03:45 03:45 WBC (4.0-11.0) K/uL RBC (4.50-5.90) M/uL Hgb (13.0-17.0) g/dL Hct (38.0-50.0) % MCV (80.0-98.0) fL MCH (27.0-32.0) pg MCHC (31.0-37.0) g/dL RDW Std Deviation (28.0-62.0) fl RDW Coeff of Rowdy (11.0-15.0) % Plt Count (150-400) K/uL MPV (7.40-12.00) fL Neut % (Auto) (48.0-80.0) % Lymph % (Auto) (16.0-40.0) % [place] % (Auto) (0.0-15.0) % Eos % (Auto) (0.0-7.0) % Baso % (Auto) (0.0-1.5) % Neut # (Auto) (1.4-5.7) K/uL Lymph # (Auto) (0.6-2.4) K/uL [place] # (Auto) (0.0-0.8) K/uL Eos # (Auto) (0.0-0.7) K/uL Baso # (Auto) (0.0-0.1) K/uL Nucleated RBC % /100WBC Nucleated RBCs # K/uL Lactate 0.5 (0.20-2.00) mmol/L Sodium 140 (136-148) mmol/L Potassium 3.8 (3.5-5.1) mmol/L Chloride 108 H (98-107) mmol/L Carbon Dioxide 24.3 (21.0-32.0) mmol/L BUN 26 H (7.0-18.0) mg/dL Creatinine 1.0 (0.8-1.3) mg/dL Est Cr Clr Drug Dosing TNP Estimated GFR (MDRD) > 60.0 ml/min Glucose 93 (74-106) mg/dL Calcium 7.9 L (8.5-10.1) mg/dL Magnesium 1.2 L (1.5-2.0) mg/dL Total Bilirubin 0.2 (0.2-1.0) mg/dL AST 10 L (15-37) IU/L ALT 12 L (14-63) IU/L Alkaline Phosphatase 75 (46-116) U/L Total Protein 5.0 L (6.4-8.2) g/dL Albumin 2.4 L (3.4-5.0) g/dL Globulin 2.6 (2.0-3.5) g/dL Albumin/Globulin Ratio 0.9 L (1.3-2.8) Hipolito Results Last 24 Hours: Microbiology 10/17/17 15:54 Anaerobic Blood Culture - Final Blood - Venous - Lab Draw Med Orders - Current: Current Medications Acetaminophen (Tylenol) 650 mg PO Q4H PRN PRN Reason: Pain (Mild 1-3)/fever Atropine Sulfate (Atropine 1% Ophth Soln) 0 ml SL Q1H PRN PRN Reason: SECRETIONS Bisacodyl (Dulcolax) 10 mg RECTAL Q24H PRN PRN Reason: Constipation Docusate Sodium (Colace) 100 mg PO BID [facility] Last Admin: 10/17/17 21:57 Dose: Not Given Dorzolamide HCl (Trusopt 2% Ophth Soln) 0 ml EYEBOTH BID [facility] Last Admin: 10/18/17 02:43 Dose: Not Given Furosemide (Lasix) 20 mg PO DAILY [facility] Heparin Sodium (Porcine) (Heparin Sodium) 5,000 units SUBCUT Q12H [facility] Last Admin: 10/18/17 04:30 Dose: 5,000 units Sodium Chloride (Normal Saline) 1,000 mls @ 125 mls/hr IV STAT [facility] Last Admin: 10/18/17 00:11 Dose: 125 mls/hr Meropenem 1 gm/ Sodium (Chloride) 100 mls @ 200 mls/hr IV Q12H [facility] Last Admin: 10/18/17 02:43 Dose: 200 mls/hr Levetiracetam (Keppra) 500 mg PO BID [facility] Last Admin: 10/17/17 20:44 Dose: 500 mg Levothyroxine Sodium (Levothyroxine) 125 mcg PO SuTuWeThSa@0700 [facility] Levothyroxine Sodium (Levothyroxine) 187.5 mcg PO MoFr@0700 [facility] Loperamide HCl (Imodium) 2 mg PO Q4H PRN PRN Reason: Diarrhea Last Admin: 10/18/17 01:42 Dose: 2 mg Magnesium Hydroxide (Milk Of Magnesia) 30 ml PO Q24H PRN PRN Reason: Constipation Morphine Sulfate (Morphine) 2 mg IVPUSH Q2H PRN PRN Reason: Pain (severe 7-10) Last Admin: 10/18/17 01:42 Dose: 2 mg Ondansetron HCl (Zofran Odt) 4 mg PO Q4H PRN PRN Reason: nausea, able to take PO Ondansetron HCl (Zofran) 4 mg IVPUSH Q4H PRN PRN Reason: Nausea Polyethylene Glycol (Miralax) 17 gm PO Q48H [facility] Last Admin: 10/17/17 18:44 Dose: Not Given Potassium Chloride (Klor-Con) 10 meq PO DAILY [facility] Risperidone (Risperidal) 1 mg PO BID [facility] Last Admin: 10/17/17 20:44 Dose: 1 mg Telmisartan (Micardis) 20 mg PO BID [facility] Last Admin: 10/17/17 20:44 Dose: 20 mg Discontinued Medications Sodium Chloride (Normal Saline) 1,000 mls @ 999 mls/hr IV STAT ONE Stop: 10/17/17 14:24 Last Admin: 10/17/17 13:26 Dose: 999 mls/hr Meropenem 1 gm/ Sodium (Chloride) 100 mls @ 200 mls/hr IV ONETIME ONE Stop: 10/17/17 16:03 Last Admin: 10/17/17 16:00 Dose: Not Given Meropenem 1 gm/ Sodium (Chloride) 100 mls @ 200 mls/hr IV ONETIME ONE Stop: 10/17/17 16:03 Last Admin: 10/17/17 15:46 Dose: 200 mls/hr Meropenem 1 gm/ Sodium (Chloride) 100 mls @ 200 mls/hr IV Q12H [facility] Last Admin: 10/18/17 03:49 Dose: Not Given - Exam Quality Assessment: Supplemental Oxygen General: Alert, Cooperative, No Acute Distress HEENT: Pupils Equal, Pupils Reactive, EOMI, Mucous Membr. Moist/Singac Neck: Supple Lungs: Clear to Auscultation, Normal Respiratory Effort Cardiovascular: Regular Rate, Regular Rhythm GI/Abdominal Exam: Normal Bowel Sounds, Soft, Non-Tender, No Organomegaly, No Distention (Male) Exam: Deferred Back Exam: Normal Inspection, Full Range of Motion Extremities: Normal Inspection, Normal Range of Motion, Non-Tender, No Pedal Edema, Normal Capillary Refill Peripheral Pulses: 2+: Radial (L), Radial (R), Posterior Tibial (L), Posterior Tibial (R), Dorsalis Pedis (L), Dorsalis Pedis (R) Skin: Warm, Dry, Intact Wound/Incisions: Healing Well Neurological: No New Focal Deficit Psy/Mental Status: Alert - Problem List & Annotations (1) Infection due to ESBL-producing Escherichia coli SNOMED Code(s): 229093060 Code(s): A49.8 - OTHER BACTERIAL INFECTIONS OF UNSPECIFIED SITE; Z16.12 - EXTENDED SPECTRUM BETA LACTAMASE (ESBL) RESISTANCE Status: Suspected Priority: High Current Visit: Yes (2) Alzheimers disease SNOMED Code(s): 37361053 Code(s): G30.9 - ALZHEIMER'S DISEASE, UNSPECIFIED Status: Chronic Priority: Medium Current Visit: Yes Qualifiers: Alzheimer's disease onset: unspecified onset Dementia behavioral disturbance: with behavioral disturbance Qualified Code(s): G30.9 - Alzheimer' s disease, unspecified; F02.81 - Dementia in other diseases classified elsewhere with behavioral disturbance; F02.81 - Dementia in other diseases classified elsewhere with behavioral disturbance; F02.81 - Dementia in other diseases classified elsewhere with behavioral disturbance (3) History of COPD SNOMED Code(s): 737681641 Code(s): Z87.09 - PERSONAL HISTORY OF OTHER DISEASES OF THE RESPIRATORY SYSTEM Status: Chronic Priority: Medium Current Visit: Yes (4) HTN (hypertension) SNOMED Code(s): 89661064 Code(s): I10 - ESSENTIAL (PRIMARY) HYPERTENSION Status: Chronic Priority : Medium Current Visit: Yes Qualifiers: Hypertension type: essential hypertension Qualified Code(s): I10 - Essential (primary) hypertension (5) Hypothyroidism SNOMED Code(s): 05365149 Code(s): E03.9 - HYPOTHYROIDISM, UNSPECIFIED Status: Chronic Priority: Medium Current Visit: Yes Qualifiers: Hypothyroidism type: unspecified Qualified Code(s): E03.9 - Hypothyroidism , unspecified (6) Dehydration SNOMED Code(s): 70217580 Code(s): E86.0 - DEHYDRATION Status: Acute Priority: High Current Visit : Yes (7) Acute nontraumatic kidney injury SNOMED Code(s): 96585777 Code(s): N17.9 - ACUTE KIDNEY FAILURE, UNSPECIFIED Status: Acute Priority : High Current Visit: Yes - Problem List Review Problem List Initiated/Reviewed/Updated: Yes - My Orders Last 24 Hours: My Active Orders 10/17/17 16:36 Patient Status [ADT] Routine Oxygen Therapy [RC] PRN Up With Assistance [RC] ASDIRECTED VTE/DVT Education [RC] PER UNIT ROUTINE Vital Signs [RC] Q4H Acetaminophen [Tylenol] 650 mg PO Q4H PRN Morphine 2 mg IVPUSH Q2H PRN Ondansetron [Zofran ODT] 4 mg PO Q4H PRN Ondansetron [Zofran] 4 mg IVPUSH Q4H PRN Resuscitation Status Routine 10/17/17 16:42 Sequential Compression Device [OM.PC] Per Unit Routine 10/17/17 16:43 Antiembolic Devices [RC] PER UNIT ROUTINE 10/17/17 16:45 Heparin Sodium 5,000 units SUBCUT Q12H 10/17/17 16:48 Atropine 1% [Atropine 1% Ophth Soln] 0 ml SL Q1H PRN Bisacodyl [Dulcolax] 10 mg RECTAL Q24H PRN Magnesium Hydroxide [Milk of Magnesia] 30 ml PO Q24H PRN 10/17/17 17:00 Polyethylene Glycol 3350 [MiraLAX] 17 gm PO Q48H 10/17/17 21:00 Docusate Sodium [Colace] 100 mg PO BID Dorzolamide [Trusopt 2% Ophth Soln] 0 ml EYEBOTH BID Telmisartan [Micardis] 20 mg PO BID levETIRAcetam [Keppra] 500 mg PO BID risperiDONE [RisperiDAL] 1 mg PO BID 10/17/17 22:21 Loperamide [Imodium] 2 mg PO Q4H PRN 10/17/17 Dinner Heart Healthy Diet [DIET] 10/18/17 03:00 Meropenem [Merrem] 1 gm Sodium Chloride 0.9% [Normal Saline] 100 ml IV Q12H 10/18/17 07:00 Levothyroxine 125 mcg PO SuTuWeThSa@0700 10/18/17 09:00 Furosemide [Lasix] 20 mg PO DAILY Potassium Chloride [Klor-Con] 10 meq PO DAILY 10/19/17 05:11 CBC WITH AUTO DIFF [HEME] AM COMPREHENSIVE METABOLIC PN,CMP [CHEM] AM 10/19/17 07:00 Levothyroxine 187.5 mcg PO MoFr@0700 10/20/17 05:11 CBC WITH AUTO DIFF [HEME] AM COMPREHENSIVE METABOLIC PN,CMP [CHEM] AM 10/21/17 05:11 CBC WITH AUTO DIFF [HEME] AM COMPREHENSIVE METABOLIC PN,CMP [CHEM] AM - Plan Plan:: 87-year-old male admitted 10/17/17 for suspected ESBL Escherichia coli UTI and dehydration with past medical history of Alzheimer's, hypertension, hyperlipidemia, COPD, and hypothyroidism. ESBL Escherichia coli UTI: Patient was treated on 08/26/17 for ESBL Escherichia coli. Urine culture pending. Cont. Meropenem day 2 as previous UTI resistant to majority of antibiotics. Acute kidney injury/dehydration: Resolved with IVF resus as was lactic acidosis. Alzheimer's: Patient currently noncombative and cooperating. Will cont. home medications. Hypertension: Currently controlled continue home meds Hyperlipidemia currently controlled continue home meds COPD: Currently controlled continue all meds Hypothyroidism: Currently controlled continue home meds. VTE: SCD, Heparin Dispo: 3-4 days.
[2017-10-18] MEDS ORDERED: Levothyroxine 125 MCG Tab PO SCH (07:00)
[2017-10-18] MEDS ORDERED: Magnesium Sulfate/Water 4 GM in Premix Bag 1 BAG IV ONE (07:09)
[2017-10-18] MEDS: risperiDONE 1 MG Tab PO SCH ×2 (08:38→20:15)
[2017-10-18] MEDS: Docusate Sodium 100 MG Cap PO SCH ×2 (08:38→20:15)
[2017-10-18] MEDS: Potassium Chloride 10 MEQ Tab.ER PO SCH (08:38)
[2017-10-18] MEDS: levETIRAcetam 500 MG Tab PO SCH ×2 (08:39→20:15)
[2017-10-18] MEDS: Furosemide 20 MG Tab PO SCH (08:39)
[2017-10-18] MEDS ORDERED: Calcium Carbonate 500 MG Tab.Chew PO SCH (09:00)
[2017-10-19] MEDS: Meropenem 1 GM in Sodium Chloride 0.9% 100 ML IV SCH (04:15)
[2017-10-19] MEDS: Heparin Sodium 5,000 Units/ML Vial SUBCUT SCH (04:16)
[2017-10-19 06:38] LABS: CHLORIDE,CL 105 mmol/L (98-107); SODIUM,NA 138 mmol/L (136-148)
[2017-10-19] MEDS ORDERED: Levothyroxine 125 MCG Tab PO SCH (07:00)
--- NOTE | 2017-10-19 09:28 | CR ---
EXAMINATION: Portable chest radiograph. HISTORY: Cough. FINDINGS: The trachea is midline. There is stable prominence of the aortic knob.. No pulmonary infiltrates, eff usions or pneumothorax. Chronic interstitial prominence. Bilateral shoulder hardware noted. IMPRESSION: 1. Chronic stable prominence of the aortic knob. 2. Interstitial prominence with probable bibasilar atelectasis, not significantly changed.
--- NOTE | 2017-10-19 10:43 | PCM.DCSUM1 ---
Discharge Summary - Hospital Course Brief History: 87-year-old male [facility] resident presenting to the emergency department secondary to altered mental status with past medical history of Alzheimer's type dementia, hypertension, hyperlipidemia, COPD, and hypothyroidism. As per records patient was combative shortly after he was found to be drooling with his tongue out with possibly deviation to the left and some left-sided weakness. However, as per emergency room, on arrival left upper and left lower extremity were normal strength 5 out of 5. Patient on examination is alert and able to speak without slurring. He does have a dry cough. In an emergency department was found to be initially hypotensive 70s over 40s on arrival. As per daughter, she states that the [facility] called her secondary to possible strokelike symptoms so she recommended them to take him to the emergency room for further evaluation. Patient he does have off history of Alzheimer's type dementia so is a poor historian. He denies any pain and on examination there is no significant findings. Emergency department: CBC , INR unremarkable. Lactate elevated at 2.5, CMP reveals increased creatinine at 1.6, troponin negative CK-MB negative, chest x-ray unremarkable, EKG showing no acute signs of ischemia. CT of the head shows no acute findings and is unchanged from CT done on 08/23/17. Patient was given 1 L normal saline with improvement of blood pressures. Urine analysis was positive for UTI. Patient was recently hospitalized on 08/26/17 and found to have ESBL Escherichia coli UTI. Patient is afebrile. Echocardiogram 03/23/17 showed a LVEF of 35-40%. Patient admitted for suspected ESBL UTI, he is DNR/DNI. - Discharge Data Discharge Date: 10/19/17 Discharge Disposition: DC/Tfer to SNF 03 Condition: Good - Patient Instructions Diet: Regular Diet as Tolerated (nectar thick consistency) Activity: As Tolerated Showering/Bathing: May Shower Notify Provider of: Fever, Increased Pain, Swelling and Redness, Drainage, Nausea and/or Vomiting - Discharge Plan Prescriptions/Med Rec: RX: Ertapenem [INVanz] 1 gm IM DAILY #10 vial Home Medications: Home Meds RX: Acetaminophen [Tylenol Extra Strength] 1,000 mg PO Q6H PRN 06/09/15 [History ] RX: Docusate Sodium 100 mg PO BID 06/09/15 [History] RX: Magnesium Hydroxide [Milk of Magnesia] 30 ml PO Q24H PRN 06/09/15 [History] RX: Polyethylene Glycol 3350 [MiraLAX] 17 gm PO Q48H 06/09/15 [History] RX: Propylene Glycol/Peg 400 [Systane 0.3-0.4% Eye Drops] 1 drop EYELF QID 06/09 [History] RX: risperiDONE [Risperdal] 1 mg PO BID 06/09/15 [History] RX: Dorzolamide [Trusopt 2% Oph Soln] 1 drop EYEBOTH BID 12/19/15 [History] RX: Furosemide [Lasix] 20 mg PO DAILY 12/19/15 [History] RX: Telmisartan 20 mg PO BID 12/19/15 [History] RX: levETIRAcetam [Keppra] 500 mg PO BID 12/19/15 [History] RX: Potassium Chloride [Klor-Con] 10 meq PO DAILY 06/12/16 [History] RX: Atropine 1% [Isopto Atropine 1% Oph Soln] 2 drop SL Q1H PRN 09/25/16 [ History] RX: Bisacodyl [Dulcolax] 10 mg RECTAL Q24H PRN 09/25/16 [History] RX: Dextromethorphan Polistirex [Delsym] 10 ml PO Q12H PRN 09/25/16 [History] RX: Levalbuterol HCl [Levalbuterol Concentrate] 1.25 mg IH Q6H PRN 10/20/16 [ History] RX: Acetaminophen [Tylenol Extra Strength] 500 mg PO BID 12/16/16 [History] RX: Levothyroxine 125 mcg PO SUTUWETHSA 08/01/17 [History] RX: Levothyroxine 187.5 mcg PO MOFR 08/01/17 [History] RX: Ipratropium/Albuterol Sulfate [Iprat-Albut 0.5-3(2.5) MG/3 ML] 1 vial IH Q6H PRN 08/04/17 [History] RX: Mineral Oil/Petrolatum,White [Artificial Tears Eye Ointment] 1 applic EYEBOTH BID 08/04/17 [History] RX: Ertapenem [INVanz] 1 gm IM DAILY #10 vial 10/19/17 [Rx] Referrals: PCP,None [Primary Care Provider] - (follow up 1 week with pcp) - Discharge Summary/Plan Comment DC Time >30 min.: No Discharge Summary/Plan Comment: Discharge Diagnoses: ESBL E Coli UTI Hx. Dysphagia Recurrent UTIs with ESBL E coli Alzheimer's Dementia with history of being combative. Alfonso was admitted with UTI, CA, and dehydration. He was given some fluids along with Meropenem was started due to history of ESBL E Coli UTI history. He was improved within 12 hours and today he is contnues to do well. No leukocytosis noted and no afebrile. CA resolved. Today he is more sleepy, but easily awakens. He will be discharged back to [place]. UC return E Coli- ESBL. We will give 1 dose os Ertapenem prior to discharge today and then continue Ertapenem 1 gm IM for 10 more days for a total of 14 days treatment for ESBL UTI. He is to follow up with PCP in 1 week at [place]. Return to ED or clinic if concerns should arise. All home medications to be restarted. - General Info Date of Service: 10/19/17 Admission Dx/Problem (Free Text: Admission Diagnosis/Problem Admission Diagnosis/Problem ESBL E Coli UTI Subjective Update: Alfonso is sitting up in the chair this morning, sleeping. Awakens. Denies pain. No other complaints, but doesn't verbalize much and then easily falls asleep again. Known to have times of more drowsiness. Functional Status: Reports: Pain Controlled - Review of Systems HEENT: Reports: No Symptoms. Denies: Sore Throat, Rhinitis, Visual Changes Pulmonary: Reports: No Symptoms. Denies: Shortness of Breath Cardiovascular: Reports: No Symptoms. Denies: Chest Pain, Palpitations, Dyspnea on Exertion Musculoskeletal: Reports: No Symptoms Neurological: Reports: No Symptoms Psychiatric: Reports: No Symptoms - Patient Data Vitals - Most Recent: Last Vital Signs Temp 96.1 F 10/19/17 08:00 Pulse 98 10/19/17 08:00 Resp 20 10/19/17 08:00 BP 137/76 10/19/17 08:00 Pulse Ox 92 L 10/19/17 08:00 Weight - Most Recent: 82.69 kg I&O - Last 24 hours: Intake & Output 10/18/17 10/19/17 10/19/17 22:59 06:59 14:59 Intake Total 770 590 Output Total 200 Balance 570 590 Lab Results - Last 24 hrs: Laboratory Results - last 24 hr 10/19/17 10/19/17 Range/Units 05:33 05:33 WBC 6.90 (4.0-11.0) K/uL RBC 4.34 L (4.50-5.90) M/uL Hgb 12.3 L (13.0-17.0) g/dL Hct 37.7 L (38.0-50.0) % MCV 86.9 (80.0-98.0) fL MCH 28.3 (27.0-32.0) pg MCHC 32.6 (31.0-37.0) g/dL RDW Std Deviation 44.8 (28.0-62.0) fl RDW Coeff of Rowdy 14 (11.0-15.0) % Plt Count 265 (150-400) K/uL MPV 10.30 (7.40-12.00) fL Neut % (Auto) 52.6 (48.0-80.0) % Lymph % (Auto) 26.2 (16.0-40.0) % Morrison % (Auto) 13.5 (0.0-15.0) % Eos % (Auto) 7.4 H (0.0-7.0) % Baso % (Auto) 0.3 (0.0-1.5) % Neut # (Auto) 3.6 (1.4-5.7) K/uL Lymph # (Auto) 1.8 (0.6-2.4) K/uL Morrison # (Auto) 0.9 H (0.0-0.8) K/uL Eos # (Auto) 0.5 (0.0-0.7) K/uL Baso # (Auto) 0.0 (0.0-0.1) K/uL Nucleated RBC % 0.0 /100WBC Nucleated RBCs # 0 K/uL Sodium 138 (136-148) mmol/L Potassium 4.2 (3.5-5.1) mmol/L Chloride 105 (98-107) mmol/L Carbon Dioxide 24.5 (21.0-32.0) mmol/L BUN 19 H (7.0-18.0) mg/dL Creatinine 0.9 (0.8-1.3) mg/dL Est Cr Clr Drug Dosing TNP Estimated GFR (MDRD) > 60.0 ml/min Glucose 81 (74-106) mg/dL Calcium 8.8 (8.5-10.1) mg/dL Magnesium 1.6 (1.5-2.0) mg/dL Total Bilirubin 0.4 (0.2-1.0) mg/dL AST 12 L (15-37) IU/L ALT 11 L (14-63) IU/L Alkaline Phosphatase 83 (46-116) U/L Total Protein 5.6 L (6.4-8.2) g/dL Albumin 2.6 L (3.4-5.0) g/dL Globulin 3.0 (2.0-3.5) g/dL Albumin/Globulin Ratio 0.9 L (1.3-2.8) HAKAN Results - Last 24 hrs: Microbiology 10/17/17 15:54 Aerobic Blood Culture - Preliminary Blood - Venous - Lab Draw NO GROWTH AFTER 1 DAY Anaerobic Blood Culture - Final Med Orders - Current: Current Medications Acetaminophen (Tylenol) 650 mg PO Q4H PRN PRN Reason: Pain (Mild 1-3)/fever Atropine Sulfate (Atropine 1% Ophth Soln) 0 ml SL Q1H PRN PRN Reason: SECRETIONS Bisacodyl (Dulcolax) 10 mg RECTAL Q24H PRN PRN Reason: Constipation Docusate Sodium (Colace) 100 mg PO BID [facility] Last Admin: 10/18/17 20:15 Dose: 100 mg Dorzolamide HCl (Trusopt 2% Ophth Soln) 0 ml EYEBOTH BID [facility] Last Admin: 10/18/17 22:11 Dose: Not Given Furosemide (Lasix) 20 mg PO DAILY [facility] Last Admin: 10/18/17 08:39 Dose: 20 mg Heparin Sodium (Porcine) (Heparin Sodium) 5,000 units SUBCUT Q12H [facility] Last Admin: 10/19/17 04:16 Dose: 5,000 units Ertapenem 1 gm/ Sodium (Chloride) 50 mls @ 100 mls/hr IV ONETIME ONE Stop: 10/19/17 12:29 Levetiracetam (Keppra) 500 mg PO BID [facility] Last Admin: 10/18/17 20:15 Dose: 500 mg Levothyroxine Sodium (Levothyroxine) 125 mcg PO [id number]@0700 [facility] Last Admin: 10/18/17 06:49 Dose: 125 mcg Levothyroxine Sodium (Levothyroxine) 187.5 mcg PO MoFr@0700 [facility] Loperamide HCl (Imodium) 2 mg PO Q4H PRN PRN Reason: Diarrhea Last Admin: 10/18/17 01:42 Dose: 2 mg Magnesium Hydroxide (Milk Of Magnesia) 30 ml PO Q24H PRN PRN Reason: Constipation Morphine Sulfate (Morphine) 2 mg IVPUSH Q2H PRN PRN Reason: Pain (severe 7-10) Last Admin: 10/18/17 01:42 Dose: 2 mg Ondansetron HCl (Zofran Odt) 4 mg PO Q4H PRN PRN Reason: nausea, able to take PO Ondansetron HCl (Zofran) 4 mg IVPUSH Q4H PRN PRN Reason: Nausea Polyethylene Glycol (Miralax) 17 gm PO Q48H [facility] Last Admin: 10/17/17 18:44 Dose: Not Given Potassium Chloride (Klor-Con 10) 10 meq PO DAILY [facility] Last Admin: 10/18/17 08:38 Dose: 10 meq Risperidone (Risperidal) 1 mg PO BID [facility] Last Admin: 10/18/17 20:15 Dose: 1 mg Telmisartan (Micardis) 20 mg PO BID [facility] Last Admin: 10/18/17 20:15 Dose: 20 mg Discontinued Medications Calcium Carbonate/Glycine (Tums) 1,000 mg PO DAILY [facility] Last Admin: 10/18/17 08:38 Dose: 1,000 mg Sodium Chloride (Normal Saline) 1,000 mls @ 999 mls/hr IV STAT ONE Stop: 10/17/17 14:24 Last Admin: 10/17/17 13:26 Dose: 999 mls/hr Meropenem 1 gm/ Sodium (Chloride) 100 mls @ 200 mls/hr IV ONETIME ONE Stop: 10/17/17 16:03 Last Admin: 10/17/17 16:00 Dose: Not Given Sodium Chloride (Normal Saline) 1,000 mls @ 125 mls/hr IV STAT [facility] Last Admin: 10/18/17 00:11 Dose: 125 mls/hr Meropenem 1 gm/ Sodium (Chloride) 100 mls @ 200 mls/hr IV ONETIME ONE Stop: 10/17/17 16:03 Last Admin: 10/17/17 15:46 Dose: 200 mls/hr Meropenem 1 gm/ Sodium (Chloride) 100 mls @ 200 mls/hr IV Q12H [facility] Last Admin: 10/18/17 03:49 Dose: Not Given Meropenem 1 gm/ Sodium (Chloride) 100 mls @ 200 mls/hr IV Q12H [facility] Last Admin: 10/18/17 02:43 Dose: 200 mls/hr Magnesium Sulfate 4 gm/ Premix 100 mls @ 25 mls/hr IV ONETIME ONE Stop: 10/18/17 11:08 Last Admin: 10/18/17 07:52 Dose: 25 mls/hr Meropenem 1 gm/ Sodium (Chloride) 100 mls @ 200 mls/hr IV Q8H [facility] Last Admin: 10/19/17 04:15 Dose: 200 mls/hr - Exam General: Reports: Alert, Cooperative, No Acute Distress, Other (sleeping, awakens briefly but does not talk. ) Neck: Reports: Supple Lungs: Reports: Normal Respiratory Effort, Rhonchi (sounds more upper respirtory airway.) Cardiovascular: Reports: Regular Rate, Regular Rhythm GI/Abdominal Exam: Normal Bowel Sounds, Soft, Non-Tender, No Organomegaly, No Distention, No Abnormal Bruit, No Mass, Pelvis Stable Back Exam: Reports: Normal Inspection, Full Range of Motion Extremities: Normal Inspection, Normal Range of Motion, Non-Tender, No Pedal Edema, Normal Capillary Refill Neurological: Reports: No New Focal Deficit Psy/Mental Status: Reports: Alert, Normal Affect, Normal Mood *Q Meaningful Use (DIS) - VTE *Q VTE Criteria *Q: - Stroke *Q Stroke Criteria *Q: - AMI *Q AMI Criteria *Q:
[2017-10-19] MEDS ORDERED: Ertapenem 1 GM in Sodium Chloride 0.9% 50 ML IV ONE (12:00)
[2017-10-19 12:45] VITALS: BP 108/71
[2017-10-19] MEDS: Potassium Chloride 10 MEQ Tab.ER PO SCH (13:16)
[2017-10-19] MEDS: Furosemide 20 MG Tab PO SCH (13:16)
[2017-10-19] MEDS: Dorzolamide 2% Ophth Soln 10 ML Bottle EYEBOTH SCH (13:16)
[2017-10-19] MEDS: levETIRAcetam 500 MG Tab PO SCH (13:16)
[2017-10-19] MEDS: risperiDONE 1 MG Tab PO SCH (13:16)
[2017-10-19] MEDS: Docusate Sodium 100 MG Cap PO SCH (13:16)
--- NOTE | 2017-10-19 15:45 | CR ---
EXAM DATE: 10/17/17 PATIENT'S AGE: 87 Patient: ANTIONE SAHU Facility: [place], [place] Site . Site : 1930 Study: XRay Chest [id number]/[id number] 2:06:06 PM Ordering Physician: Doctor Barfield Final Report: HISTORY: Cough and weakness. FINDINGS: Single AP view of the chest is provided. There is a blunted appearance to the left costophrenic angle. This is noted on multiple previous studies back to and probably represents pleural scarring. There is diminished volume to the left lung without change. The right lung is normally expanded. Lungs are clear without evidence for pneumothorax. Cardiac and mediastinal silhouettes are unchanged. 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 IMPRESSION: No findings for new airspace consolidation to suggest pneumonia. Dictated by Mykel Townsend MD @ Oct 17 2017 2:27PM (Electronic Signature) Report Signed by Proxy. ALEJANDRO
--- NOTE | 2017-10-19 15:47 | CT ---
EXAM DATE: 10/17/17 PATIENT'S AGE: 87 Patient: ANTIONE SAHU Facility: [place], [place] Site . Site : 1930 Study: CT Head [id number]/17/2018 2:20:45 PM Ordering Physician: Doctor Barfield Final Report: INDICATION: Weakness; syncope; hypotension. COMPARISON: CT head without intravenous contrast August 23, 2017. TECHNIQUE: CT head without intravenous contrast; coronal and sagittal reformats. FINDINGS: Extensive periventricular low density secondary to small vessel disease. Brain atrophy. No intracranial hemorrhage. No mass lesions. No evidence of shift of the midline structures. The calvarium is unremarkable. IMPRESSION: 1. periventricular low density secondary to extensive small vessel disease. 2. No intracranial hemorrhage. 3. No evidence of mass lesions or shift of the midline structures. 4. No interval change when compared to August 23, 2017 . Please note that all CT scans at this facility use dose modulation, iterative reconstruction, and/or weight-based dosing when appropriate to reduce radiation dose to as low as reasonably achievable. Dictated by Johana Penaloza MD @ Oct 17 2017 2:52PM (Electronic Signature) Report Signed [facility] Proxy. [facility]
== END 2017-10-19 14:40 | DRG 315 ==
LOC: MW.ED 13:10 → MW.MS 15:37
PROVIDERS: ADMIT Family Medicine; ATTEND Family Medicine
DX: I95.9 Hypotension, unspecified (principal); N39.0 Urinary tract infection, site not specified; F02.81 Dementia in other diseases classified elsewhere, unspecified severity, with behavioral disturbance; F02.80 Dementia in other diseases classified elsewhere, unspecified severity, without behavioral disturbance, psychotic disturbance, mood disturbance, and anxiety; E78.00 Pure hypercholesterolemia, unspecified; I50.20 Unspecified systolic (congestive) heart failure; N17.9 Acute kidney failure, unspecified; B96.20 Unspecified Escherichia coli [E. coli] as the cause of diseases classified elsewhere; R41.89 Other symptoms and signs involving cognitive functions and awareness; E86.0 Dehydration; G30.9 Alzheimer's disease, unspecified; I10 Essential (primary) hypertension; E78.5 Hyperlipidemia, unspecified; Z99.81 Dependence on supplemental oxygen; J44.9 Chronic obstructive pulmonary disease, unspecified; E03.9 Hypothyroidism, unspecified; R13.10 Dysphagia, unspecified; F32.9 Major depressive disorder, single episode, unspecified; Z88.8 Allergy status to other drugs, medicaments and biological substances; Z88.0 Allergy status to penicillin; Z79.899 Other long term (current) drug therapy
CPT/HCPCS: 36415; 70450; 71045; 80053; 81001; 82550; 82553; 83605; 84484; 85025; 85610; 87040; 87086; 87088; 87186; 93005; 96361; 99285; J7040; 83735; 96365; 99283; A9270-GY; J1335; J1644; J2185; J2270; J3475; J7030; J7050